=== PATIENT | female | born 1940 | race Caucasian/White ===

== ENCOUNTER 2018-02-16 13:21 | Emergency (ER) | payer MEDICARE, BC ==
[2018-02-16 13:36] VITALS: BP 151/96
[2018-02-16] MEDS ORDERED: Sodium Chloride 0.9% 10 ML Syringe FLUSH PRN (13:43)
--- NOTE | 2018-02-16 14:45 | EDM.PDOC ---
ED HPI GENERAL MEDICAL PROBLEM - General Chief Complaint: Cardiovascular Problem Stated Complaint: RAPID HEART RATE AND LOW BLOOD PRESSURE Time Seen by Provider: 02/16/18 13:29 Source of Information: Reports: Patient History Limitations: Reports: No Limitations - History of Present Illness INITIAL COMMENTS - FREE TEXT/NARRATIVE: 77 y/o F with hx HTN presents with swelling from clinic. She states she had a flu like illness a couple of months ago and now has had worsening renal function. She has seen a proof clerk, states they were thinking the decline may be medication related and her lisinopril was decreased. Was briefly on diuretics per PCP but these were discontinued. She has had worsening lower extremity swelling. She states the swelling is as high as her abdomen. She feels mildly SOB with exertion. Denies CP/cough. No vomiting/diarrhea. No dysuria, but makes very little urine. Denies fever or recent illness. Saw today who noted that she had low blood pressure, fast heart rate, and worsening edema and sent her here for further eval. 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: Other (see below) Lower Abdomen Pain Score (Numeric/FACES): 0 - Related Data Allergies Allergy/AdvReac Type Severity Reaction Status Date / Time erythromycin base Allergy Hives Verified 02/16/18 14:14 nitrofurantoin Allergy Hives Verified 02/16/18 14:14 [From Macrobid] Sulfa (Sulfonamide Allergy Hives Verified 02/16/18 14:14 Antibiotics) IVP dye Allergy Anaphylactic Uncoded 10/25/16 22:42 Shock Home Meds: Home Meds Cholecalciferol (Vitamin D3) [Vitamin D3] 1,000 unit PO DAILY 10/25/16 [History] Cinnamon Bark [Cinnamon] 500 mg PO DAILY 10/25/16 [History] Ferrous Sulfate [Iron] 325 mg PO DAILY 10/25/16 [History] Levothyroxine 25 mcg PO ACBREAKFAST 10/25/16 [History] Lisinopril 5 mg PO DAILY 10/25/16 [History] Metoprolol Succinate [Toprol XL] 100 mg PO DAILY 10/25/16 [History] [place]-3/DHA/Epa/Fish Oil [[place] 3 500 Softgel] 1 each PO DAILY 10/25/16 [History ] Vitamin B Complex [B Complex] 1 each PO DAILY 02/21/17 [History] Past Medical History Cardiovascular History: Reports: Hypertension Genitourinary History: Reports: Renal Disease Hematologic History: Reports: Other (See Below) - Infectious Disease History Infectious Disease History: Reports: Chicken Pox, Diphtheria, Measles, Mumps Other Infectious Disease History: age 7 - Past Surgical History Respiratory Surgical History: Reports: Tracheostomy GI Surgical History: Reports: Appendectomy, Cholecystectomy Female Surgical History: Reports: Hysterectomy, Salpingo-Oophorectomy, Tubal Ligation Social & Family History - Tobacco Use Smoking Status *Q: Never Smoker - Caffeine Use Caffeine Use: Reports: Coffee - Recreational Drug Use Recreational Drug Use: No - Living Situation & Occupation Occupation: Retired ED ROS GENERAL - Review of Systems Review Of Systems: See Below Constitutional: Reports: Weakness, Fatigue. Denies: Fever HEENT: Reports: No Symptoms Respiratory: Reports: Shortness of Breath Cardiovascular: Denies: Chest Pain Endocrine: Reports: Fatigue GI/Abdominal: Reports: Nausea. Denies: Abdominal Pain, Vomiting : Reports: No Symptoms Musculoskeletal: Reports: No Symptoms Skin: Reports: No Symptoms Neurological: Reports: No Symptoms Psychiatric: Reports: No Symptoms Hematologic/Lymphatic: Reports: No Symptoms Immunologic: Reports: No Symptoms ED EXAM, GENERAL - Physical Exam Exam: See Below Exam Limited By: No Limitations General Appearance: Alert, WD/WN, No Apparent Distress Eye Exam: Bilateral Eye: EOMI, PERRL Ears: Normal External Exam Nose: Normal Inspection Throat/Mouth: Normal Inspection, Normal Oropharynx, Normal Voice, No Airway Compromise Head: Atraumatic, Normocephalic Neck: Normal Inspection, Supple, Non-Tender, Full Range of Motion Respiratory/Chest: No Respiratory Distress, Lungs Clear, Normal Breath Sounds, Chest Non-Tender Cardiovascular: Normal Peripheral Pulses, Tachycardia, Other (3+ bilat LE edema) GI/Abdominal: Soft, Non-Tender, No Distention. No: Rebound Back Exam: Normal Inspection Extremities: Pedal Edema (3+ bilat LE, extends to the abdomen,no erythema/TTP) Neurological: Alert, Oriented, Normal Cognition, No Motor/Sensory Deficits Psychiatric: Normal Affect, Normal Mood Skin Exam: Warm, Dry, Intact, Normal Color, No Rash Course - Vital Signs Last Recorded V/S: Last Vital Signs Temp 36.2 C 02/16/18 13:33 Pulse 125 H 02/16/18 13:33 Resp 28 H 02/16/18 13:33 BP 151/96 H 02/16/18 13:33 Pulse Ox 93 L 02/16/18 13:33 - Orders/Labs/Meds Orders: Active Orders 24 hr Category Date Time Status EKG 12 Lead [EKG Documentation Completion] [RC] STAT Care 02/16/18 13:42 Active Peripheral IV Care [RC] . DIRECTED Care 02/16/18 13:43 Active Peripheral IV Care [RC] . DIRECTED Care 02/16/18 13:43 Active Chest 1V Frontal [CR] Stat Exams 02/16/18 13:42 Taken UA W/MICROSCOPIC [URIN] Stat Lab 02/16/18 13:42 Ordered Peripheral IV Insertion Adult [OM.PC] Routine Oth 02/16/18 13:43 Ordered Labs: Laboratory Tests 02/16/18 02/16/18 02/16/18 Range/Units 13:35 13:35 13:35 WBC 9.50 (3.98-10.04) K/mm3 RBC 4.00 (3.98-5.22) M/mm3 Hgb 10.7 L (11.2-15.7) gm/L Hct 33.5 L (34.1-44.9) % MCV 83.8 (79.4-94.8) fl MCH 26.8 (25.6-32.2) pg MCHC 31.9 L (32.2-35.5) g/dl RDW Std Deviation 48.1 H (36.4-46.3) fL Plt Count 374 H (182-369) K/mm3 MPV 10.3 (9.4-12.3) fl Neut % (Auto) 77.4 H (34.0-71.1) % Lymph % (Auto) 11.1 L (19.3-51.7) % Story % (Auto) 8.4 (4.7-12.5) % Eos % (Auto) 2.2 (0.7-5.8) Baso % (Auto) 0.5 (0.1-1.2) % Neut # (Auto) 7.35 H (1.56-6.13) K/mm3 Lymph # (Auto) 1.05 L (1.18-3.74) K/mm3 Story # (Auto) 0.80 H (0.24-0.36) K/mm3 Eos # (Auto) 0.21 (0.04-0.36) K/mm3 Baso # (Auto) 0.05 (0.01-0.08) K/mm3 PT 11.0 (9.5-12.1) SECONDS INR 1.01 Sodium 136 (136-145) mEq/L Potassium 4.5 (3.5-5.1) mEq/L Chloride 103 (98-107) mEq/L Carbon Dioxide 19 L (21-32) mEq/L Anion Gap 18.5 H (5-15) BUN 55 H (7-18) mg/dL Creatinine 2.8 H (0.55-1.02) mg/dL Est Cr Clr Drug Dosing 14.99 mL/min Estimated GFR (MDRD) 16 (>60) mL/min BUN/Creatinine Ratio 19.6 H (14-18) Glucose 132 H (83-115) mg/dL Lactic Acid (0.4-2.0) mmol/L Calcium 9.0 (8.5-10.1) mg/dL Magnesium 2.0 (1.8-2.4) mg/dl Total Bilirubin 0.4 (0.2-1.0) mg/dL AST 20 (15-37) U/L ALT 14 (14-59) U/L Alkaline Phosphatase 71 (46-116) U/L Troponin I < 0.017 (0.00-0.056) ng/mL NT-Pro-B Natriuret Pep (0-450) pg/mL Total Protein 7.5 (6.4-8.2) g/dl Albumin 2.8 L (3.4-5.0) g/dl Globulin 4.7 gm/dL Albumin/Globulin Ratio 0.6 L (1-2) TSH 3rd Generation (0.358-3.74) uIU/mL 02/16/18 02/16/18 02/16/18 Range/Units 13:35 13:35 13:55 WBC (3.98-10.04) K/mm3 RBC (3.98-5.22) M/mm3 Hgb (11.2-15.7) gm/L Hct (34.1-44.9) % MCV (79.4-94.8) fl MCH (25.6-32.2) pg MCHC (32.2-35.5) g/dl RDW Std Deviation (36.4-46.3) fL Plt Count (182-369) K/mm3 MPV (9.4-12.3) fl Neut % (Auto) (34.0-71.1) % Lymph % (Auto) (19.3-51.7) % Story % (Auto) (4.7-12.5) % Eos % (Auto) (0.7-5.8) Baso % (Auto) (0.1-1.2) % Neut # (Auto) (1.56-6.13) K/mm3 Lymph # (Auto) (1.18-3.74) K/mm3 Story # (Auto) (0.24-0.36) K/mm3 Eos # (Auto) (0.04-0.36) K/mm3 Baso # (Auto) (0.01-0.08) K/mm3 PT (9.5-12.1) SECONDS INR Sodium (136-145) mEq/L Potassium (3.5-5.1) mEq/L Chloride (98-107) mEq/L Carbon Dioxide (21-32) mEq/L Anion Gap (5-15) BUN (7-18) mg/dL Creatinine (0.55-1.02) mg/dL Est Cr Clr Drug Dosing mL/min Estimated GFR (MDRD) (>60) mL/min BUN/Creatinine Ratio (14-18) Glucose (83-115) mg/dL Lactic Acid 1.6 (0.4-2.0) mmol/L Calcium (8.5-10.1) mg/dL Magnesium (1.8-2.4) mg/dl Total Bilirubin (0.2-1.0) mg/dL AST (15-37) U/L ALT (14-59) U/L Alkaline Phosphatase (46-116) U/L Troponin I (0.00-0.056) ng/mL NT-Pro-B Natriuret Pep 527 H (0-450) pg/mL Total Protein (6.4-8.2) g/dl Albumin (3.4-5.0) g/dl Globulin gm/dL Albumin/Globulin Ratio (1-2) TSH 3rd Generation 5.058 H (0.358-3.74) uIU/mL Meds: Medications Discontinued Medications Generic Name Dose Route Start Last Admin Trade Name Henrique PRN Reason Stop Dose Admin Sodium Chloride 10 ml 02/16/18 13:43 02/16/18 14:08 Saline Flush FLUSH 10 ml ASDIRECTED PRN Administration Keep Vein Open - Re-Assessments/Exams Free Text/Narrative Re-Assessment/Exam: 02/16/18 17:43 Patient with markedly reduced urinary output, per Dr. Nazario her 24 hr urine collection only had 160 cc of urine in it. She also has marked peripheral edema. She doesn't have much pulmonary edema and is no respiratory distress. Electrolytes normal, K+ 4.5. Creatinine elevated at 2.8. She is afebrile. Mildly tachycardic in 110's. BP here is normal, though was reportedly low at clinic today. She looks well. Discussed with Dr. Avila at [facility] who accepts her for transfer given need for urgent renal consult and possible initiation of HD given all of the above. Patient strongly prefers to go by private vehicle. She is mildly tachycardic but has had normal BP throughout her stay. She is actually reasonably well appearing. Offered ambulance transport for monitoring en route (she doesn't require IV meds or O2 at this time) but she declined. Understands the risk of decline en route. Her daughter will drive. 02/16/18 17:45 Departure - Departure Time of Disposition: 15:11 Disposition: DC/Tfer to [facility] 02 Reason for Transfer *Q: Other (needs renal consult and possible HD) Clinical Impression: Tachycardia Acute renal failure Qualifiers: Acute renal failure type: unspecified Qualified Code(s): N17.9 - Acute kidney failure, unspecified Referrals: Cristian Nazario MD [Primary Care Provider] - Forms: ED Department Discharge Additional Instructions: 1. Go directly to [facility] in [place] to be admitted. - My Orders Last 24 Hours: My Active Orders 02/16/18 13:42 EKG 12 Lead [EKG Documentation Completion] [RC] STAT Chest 1V Frontal [CR] Stat UA W/MICROSCOPIC [URIN] Stat 02/16/18 13:43 Peripheral IV Care [RC] . DIRECTED Peripheral IV Care [RC] . DIRECTED Peripheral IV Insertion Adult [OM.PC] Routine - Assessment/Plan Last 24 Hours: My Active Orders 02/16/18 13:42 EKG 12 Lead [EKG Documentation Completion] [RC] STAT Chest 1V Frontal [CR] Stat UA W/MICROSCOPIC [URIN] Stat 02/16/18 13:43 Peripheral IV Care [RC] . DIRECTED Peripheral IV Care [RC] . DIRECTED Peripheral IV Insertion Adult [OM.PC] Routine
--- NOTE | 2018-02-19 07:07 | CR ---
Chest: Portable view of the chest was obtained. Comparison: No prior chest x-ray. Heart size and mediastinum are normal. Lungs are clear with no acute parenchymal change. Bony structures are grossly intact. Impression: 1. Nothing acute is seen on portable chest x-ray. Diagnostic code #1
== END 2018-02-16 15:45 ==
LOC: JD.ED 13:21
DX: N17.9 Acute kidney failure, unspecified (principal); R00.0 Tachycardia, unspecified; I10 Essential (primary) hypertension; Z88.1 Allergy status to other antibiotic agents; Z88.8 Allergy status to other drugs, medicaments and biological substances; Z88.2 Allergy status to sulfonamides; Z79.899 Other long term (current) drug therapy; Z90.49 Acquired absence of other specified parts of digestive tract; Z91.041 Radiographic dye allergy status; R06.02 Shortness of breath
CPT/HCPCS: 36415; 71045; 80053; 83605; 83735; 83880; 84443; 84484; 85025; 85610; 93005; 99285; J7050

== ENCOUNTER 2020-06-19 10:20 | Inpatient (IN) | payer MEDICARE, BC ==
[2020-06-19] MEDS ORDERED: Sodium Chloride 0.9% 1,000 ML IV ONE (11:41)
--- NOTE | 2020-06-19 15:25 | EDM.PDOC ---
ED HPI GENERAL MEDICAL PROBLEM - General Chief Complaint: Syncope Stated Complaint: DIZZY AND LIGHTHEADED Time Seen by Provider: 06/19/20 11:04 Source of Information: Reports: Patient, Provider History Limitations: Reports: No Limitations - History of Present Illness INITIAL COMMENTS - FREE TEXT/NARRATIVE: The patient presents from [facility] for generalized weakness and li ghtheadedness. She has ovarian cancer and she is on chemotherapy. She last got doxyrubicin on the 8th and did not do well with it. She gets infusions and feels better after that. She came to the clinic today feeling weak. She had a liter of fluid and zofran. She did not feel much better. Labs were done and her sodium was low at 129 and her creatinine was elevated at 3.9. Naida COATES at [facility] called [facility] in [place] and talked to Dr Avery and one call and they had no beds. She has been having trouble with her kidneys since she was diagnosed with ovarian cancer. She has no fever, chills, cough, chest pain, shortness of breath, or abdominal pain. Onset: Gradual Duration: Week(s): Severity: Moderate Improves with: Reports: None Worsens with: Reports: None Associated Symptoms: Denies: Chest Pain, Cough, Fever/Chills, Headaches, Nausea/Vomiting, Shortness of Breath - Related Data Allergies Allergy/AdvReac Type Severity Reaction Status Date / Time erythromycin base Allergy Hives Verified 06/19/20 10:51 nitrofurantoin Allergy Hives Verified 06/19/20 10:51 [From Macrobid] Sulfa (Sulfonamide Allergy Hives Verified 06/19/20 10:51 Antibiotics) IVP dye Allergy Anaphylactic Uncoded 06/19/20 10:51 Shock Home Meds: Home Meds Levothyroxine 25 mcg PO ACBREAKFAST 10/25/16 [History] Metoprolol Succinate [Toprol XL] 100 mg PO DAILY 10/25/16 [History] Acetaminophen 650 mg PO Q4H PRN 06/19/20 [History] Magnesium Oxide 400 mg PO BID 06/19/20 [History] Ondansetron [Zofran] 8 mg SL Q8H PRN 06/19/20 [History] Promethazine Gel 25 mg TOP Q6H PRN 06/19/20 [History] Past Medical History HEENT History: Reports: Impaired Vision Other HEENT History: wears eyeglasses. 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: Musculoskeletal History: Reports: Fracture Neurological History: Reports: Migraines Endocrine/Metabolic History: Reports: Hypothyroidism Hematologic History: Reports: Anemia, Blood Transfusion(s) Immunologic History: Reports: Immunosuppression Oncologic (Cancer) History: Reports: Ovarian - Infectious Disease History Infectious Disease History: Reports: Chicken Pox, Diphtheria, Measles, Mumps Other Infectious Disease History: age 7 - Past Surgical History Respiratory Surgical History: Reports: Tracheostomy GI Surgical History: Reports: Appendectomy, Cholecystectomy Female Surgical History: Reports: Hysterectomy, Salpingo-Oophorectomy, Tubal Ligation Musculoskeletal Surgical History: Reports: Other (See Below) Other Musculoskeletal Surgeries/Procedures:: L) ankle--crush injury. Social & Family History - Tobacco Use Tobacco Use Status *Q: Never Tobacco User Second Hand Smoke Exposure: No - Caffeine Use Caffeine Use: Reports: None - Recreational Drug Use Recreational Drug Use: No - Living Situation & Occupation Occupation: Retired ED ROS GENERAL - Review of Systems Review Of Systems: See Below Constitutional: Reports: Malaise, Weakness, Fatigue. Denies: Fever, Chills HEENT: Reports: No Symptoms Respiratory: Reports: No Symptoms Cardiovascular: Reports: No Symptoms Endocrine: Reports: No Symptoms GI/Abdominal: Reports: Nausea. Denies: Abdominal Pain, Vomiting : Reports: No Symptoms ED EXAM, NEURO - Physical Exam Exam: See Below Exam Limited By: No Limitations General Appearance: Alert, No Apparent Distress Ears: Normal External Exam Nose: Normal Inspection Head Exam: Atraumatic, Normocephalic Neck: Normal Inspection Respiratory/Chest: No Respiratory Distress, Lungs Clear, Normal Breath Sounds Cardiovascular: Regular Rate, Rhythm, No Edema, No Murmur GI/Abdominal: Soft, Non-Tender, No Organomegaly, No Mass Neurological: Alert, No Motor/Sensory Deficits, Oriented x 3 Course - Vital Signs Last Recorded V/S: Last Vital Signs Temp 97.3 F 06/19/20 10:40 Pulse 84 06/19/20 10:40 Resp 16 06/19/20 10:40 BP 117/77 06/19/20 10:40 Pulse Ox 99 06/19/20 10:40 - Orders/Labs/Meds Orders: Active Orders 24 hr Category Date Time Status Cardiac Monitoring [RC] . DIRECTED Care 06/19/20 12:06 Active CORONAVIRUS COVID-19 CANDELARIA [MOLEC] Stat Lab 06/19/20 14:35 Received Labs: Laboratory Tests 06/19/20 06/19/20 Range/Units 13:10 13:10 WBC 10.55 H (3.98-10.04) K/mm3 RBC 4.20 (3.98-5.22) M/mm3 Hgb 10.9 L (11.2-15.7) gm/dl Hct 33.8 L (34.1-44.9) % MCV 80.5 D (79.4-94.8) fl MCH 26.0 (25.6-32.2) pg MCHC 32.2 (32.2-35.5) g/dl RDW Std Deviation 51.7 H (36.4-46.3) fL Plt Count 546 H D (182-369) K/mm3 MPV 8.5 L (9.4-12.3) fl Neut % (Auto) 93.7 H (34.0-71.1) % Lymph % (Auto) 3.1 L (19.3-51.7) % [place] % (Auto) 2.5 L (4.7-12.5) % Eos % (Auto) 0.1 L (0.7-5.8) Baso % (Auto) 0.0 L (0.1-1.2) % Neut # (Auto) 9.89 H (1.56-6.13) K/mm3 Lymph # (Auto) 0.33 L (1.18-3.74) K/mm3 [place] # (Auto) 0.26 (0.24-0.36) K/mm3 Eos # (Auto) 0.01 L (0.04-0.36) K/mm3 Baso # (Auto) 0.00 L (0.01-0.08) K/mm3 Manual Slide Review Abnormal smear Sodium 129 L (136-145) mEq/L Potassium 4.7 (3.5-5.1) mEq/L Chloride 97 L (98-107) mEq/L Carbon Dioxide 15 L (21-32) mEq/L Anion Gap 21.7 H (5-15) BUN 75 H (7-18) mg/dL Creatinine 3.1 H (0.55-1.02) mg/dL Est Cr Clr Drug Dosing 13.67 mL/min Estimated GFR (MDRD) 15 (>60) mL/min BUN/Creatinine Ratio 24.2 H (14-18) Glucose 104 (83-115) mg/dL Calcium 8.3 L (8.5-10.1) mg/dL Magnesium 2.1 (1.8-2.4) mg/dl Total Bilirubin 0.3 (0.2-1.0) mg/dL AST 16 (15-37) U/L ALT 11 L (14-59) U/L Alkaline Phosphatase 112 (46-116) U/L Total Protein 5.4 L (6.4-8.2) g/dl Albumin 1.7 L (3.4-5.0) g/dl Globulin 3.7 gm/dL Albumin/Globulin Ratio 0.5 L (1-2) Meds: Medications Discontinued Medications Generic Name Dose Route Start Last Admin Trade Name Freq PRN Reason Stop Dose Admin Sodium Chloride 1,000 mls @ 1,000 mls/hr 06/19/20 11:41 06/19/20 13:10 Normal Saline IV 06/19/20 12:40 1,000 mls/hr ONETIME ONE Administration - Re-Assessments/Exams Free Text/Narrative Re-Assessment/Exam: 06/19/20 15:26 I ordered another liter of NS. Her WBC here was 10.55. Her platelets were elevated at 546. Her Na is low at 129. Her anion gap is elevated at 21.7. Her creatinine has improved to 3.1. I talked to [facility] and they were still full. I talked to our hospitalist Dr Hills and he agreed to the adm ission. Departure - Departure Time of Disposition: 15:30 Disposition: Home, Self-Care 01 Condition: Serious Clinical Impression: Generalized weakness, Hyponatremia, Renal insufficiency Ovarian cancer Qualifiers: Laterality: unspecified laterality Qualified Code(s): C56.9 - Malignant neoplasm of unspecified ovary - Discharge Information Referrals: Cristian Nazario MD [Primary Care Provider] - Sepsis Event Note (ED) - Evaluation Sepsis Screening Result: No Definite Risk - Focused Exam Vital Signs: Vital Signs Temp Pulse Resp BP Pulse Ox 06/19/20 10:40 97.3 F 84 16 117/77 99 - My Orders Last 24 Hours: My Active Orders 06/19/20 12:06 Cardiac Monitoring [RC] . DIRECTED 06/19/20 14:35 CORONAVIRUS COVID-19 CANDELARIA [MOLEC] Stat - Assessment/Plan Last 24 Hours: My Active Orders 06/19/20 12:06 Cardiac Monitoring [RC] . DIRECTED 06/19/20 14:35 CORONAVIRUS COVID-19 CANDELARIA [MOLEC] Stat
--- NOTE | 2020-06-19 16:37 | PCM.HP.2 ---
H&P History of Present Illness - General Date of Service: 06/19/20 Admit Problem/Dx: Generalized weakness - History of Present Illness Initial Comments - Free Text/Narative: 79-year-old female with history of ovarian cancer, last chemotherapy on June 11, 2020. Her next chemotherapy is scheduled in 3 weeks and next week she has a paracentesis is scheduled for recurrent ascites. Chemotherapy includes doxorubicin and she apparently gets very weak after the infusions. Patient has been increasingly weak and she presented to the oncology clinic today and after receiving a liter of fluid and Zofran she still did not fill any better. She is unable to get around at home. Labs done at the clinic showed sodium of 129 and a creatinine of 3.9. When repeated here sodium was still 129, but creatinine came down to 3.1 with estimated GFR of 15 and BUN of 75. Her normal creatinine is in the upper twos according to the ED provider. Patient complains of a poor appetite but no significant abdominal pain. She did complain of some lower abdominal fullness especially when her fluid increases in her abdomen. She denies any fever or chills. She denies any shortness of breath or chest pain. No dysuria or hematuria. No vomiting. She does complain of some mouth discomfort that has been going on for a few weeks. She does have a mouthwash uses at home. She also complains of occasional ear pain that causes dizziness. - Related Data Allergies/Adverse Reactions: Allergies Allergy/AdvReac Type Severity Reaction Status Date / Time erythromycin base Allergy Hives Verified 06/19/20 18:12 nitrofurantoin Allergy Hives Verified 06/19/20 18:12 [From Macrobid] Sulfa (Sulfonamide Allergy Hives Verified 06/19/20 18:12 Antibiotics) IVP dye Allergy Anaphylactic Uncoded 06/19/20 18:12 Shock Home Medications: Home Meds Levothyroxine 25 mcg PO ACBREAKFAST 10/25/16 [History] Metoprolol Succinate [Toprol XL] 100 mg PO DAILY 10/25/16 [History] Acetaminophen 650 mg PO Q4H PRN 06/19/20 [History] Magnesium Oxide 400 mg PO BID 06/19/20 [History] Ondansetron [Zofran] 8 mg SL Q8H PRN 06/19/20 [History] Promethazine Gel 25 mg TOP Q6H PRN 06/19/20 [History] Past Medical History HEENT History: Reports: Impaired Vision Other HEENT History: wears eyeglasses. Cardiovascular History: Reports: Hypertension Respiratory History: Reports: Pneumonia, Recurrent Genitourinary History: Reports: Renal Disease, UTI, Recurrent MANAGER DELI History: Reports: Musculoskeletal History: Reports: Fracture Neurological History: Reports: Migraines Endocrine/Metabolic History: Reports: Hypothyroidism Hematologic History: Reports: Anemia, Blood Transfusion(s) Immunologic History: Reports: Immunosuppression Oncologic (Cancer) History: Reports: Ovarian - Infectious Disease History Infectious Disease History: Reports: Chicken Pox, Diphtheria, Measles, Mumps Other Infectious Disease History: age 7 - Past Surgical History Respiratory Surgical History: Reports: Tracheostomy GI Surgical History: Reports: Appendectomy, Cholecystectomy Female Surgical History: Reports: Hysterectomy, Salpingo-Oophorectomy, Tubal Ligation Musculoskeletal Surgical History: Reports: Other (See Below) Other Musculoskeletal Surgeries/Procedures:: L) ankle--crush injury. Social & Family History - Tobacco Use Tobacco Use Status *Q: Never Tobacco User Second Hand Smoke Exposure: No - Caffeine Use Caffeine Use: Reports: None - Recreational Drug Use Recreational Drug Use: No - Living Situation & Occupation Occupation: Retired H&P Review of Systems - Review of Systems: Review Of Systems: Comprehensive ROS is negative, except as noted in HPI. Exam - Exam Exam: See Below - Vital Signs Vital Signs: Last Vital Signs Temp 97.3 F 06/19/20 10:40 Pulse 84 06/19/20 10:40 Resp 16 06/19/20 10:40 BP 117/77 06/19/20 10:40 Pulse Ox 99 06/19/20 10:40 Weight: 74.389 kg - Exam Quality Assessment: No: Supplemental Oxygen General: Alert, Oriented, Other (Ill-appearing in no acute distress) HEENT: Conjunctiva Clear, EOMI, Hearing Intact (Ears are without erythema. Right tympanic membrane has a small amount of bulging, but nothing significant or severe.), Nares Patent, Posterior Pharynx Clear, Other (Oral mucosa is mildly erythematous. She does have some ulceration on her tongue.) Neck: Supple, Trachea Midline, 2 Lungs: Clear to Auscultation, Normal Respiratory Effort Cardiovascular: Regular Rate, Regular Rhythm GI/Abdominal Exam: Normal Bowel Sounds, Soft, Non-Tender, Distended Back Exam: Normal Inspection Extremities: Normal Capillary Refill, Pedal Edema (3+ pitting edema), Leg Pain (Mildly tender ankles and calf). No: Increased Warmth Skin: Warm, Dry, Intact Neurological: Cranial Nerves Intact Neuro Extensive - Mental Status: Alert, Oriented x3, Normal Mood/Affect, Normal Cognition, Memory Intact Neuro Extensive - Motor, Sensory, Reflexes: CN II-XII Intact Psychiatric: Alert, Normal Affect, Normal Mood - Patient Data Lab Results Last 24 hrs: Laboratory Results - last 24 hr 06/19/20 06/19/20 06/19/20 Range/Units 13:10 13:10 14:35 WBC 10.55 H (3.98-10.04) K/mm3 RBC 4.20 (3.98-5.22) M/mm3 Hgb 10.9 L (11.2-15.7) gm/dl Hct 33.8 L (34.1-44.9) % MCV 80.5 D (79.4-94.8) fl MCH 26.0 (25.6-32.2) pg MCHC 32.2 (32.2-35.5) g/dl RDW Std Deviation 51.7 H (36.4-46.3) fL Plt Count 546 H D (182-369) K/mm3 MPV 8.5 L (9.4-12.3) fl Neut % (Auto) 93.7 H (34.0-71.1) % Lymph % (Auto) 3.1 L (19.3-51.7) % Cache % (Auto) 2.5 L (4.7-12.5) % Eos % (Auto) 0.1 L (0.7-5.8) Baso % (Auto) 0.0 L (0.1-1.2) % Neut # (Auto) 9.89 H (1.56-6.13) K/mm3 Lymph # (Auto) 0.33 L (1.18-3.74) K/mm3 [place] # (Auto) 0.26 (0.24-0.36) K/mm3 Eos # (Auto) 0.01 L (0.04-0.36) K/mm3 Baso # (Auto) 0.00 L (0.01-0.08) K/mm3 Manual Slide Review Abnormal smear Sodium 129 L (136-145) mEq/L Potassium 4.7 (3.5-5.1) mEq/L Chloride 97 L (98-107) mEq/L Carbon Dioxide 15 L (21-32) mEq/L Anion Gap 21.7 H (5-15) BUN 75 H (7-18) mg/dL Creatinine 3.1 H (0.55-1.02) mg/dL Est Cr Clr Drug Dosing 13.67 mL/min Estimated GFR (MDRD) 15 (>60) mL/min BUN/Creatinine Ratio 24.2 H (14-18) Glucose 104 (83-115) mg/dL Calcium 8.3 L (8.5-10.1) mg/dL Magnesium 2.1 (1.8-2.4) mg/dl Total Bilirubin 0.3 (0.2-1.0) mg/dL AST 16 (15-37) U/L ALT 11 L (14-59) U/L Alkaline Phosphatase 112 (46-116) U/L Total Protein 5.4 L (6.4-8.2) g/dl Albumin 1.7 L (3.4-5.0) g/dl Globulin 3.7 gm/dL Albumin/Globulin Ratio 0.5 L (1-2) SARS-CoV-2 RNA ([place]) Negative (NEGATIVE) Result Diagrams: 06/19/20 13:10 06/19/20 13:10 Sepsis Event Note - Evaluation Sepsis Screening Result: No Definite Risk - Focused Exam Vital Signs: Vital Signs Temp Pulse Resp BP Pulse Ox 06/19/20 10:40 97.3 F 84 16 117/77 99 - Problem List (1) Generalized weakness SNOMED Code(s): 66986089 ICD Code: R53.1 - WEAKNESS Status: Acute Current Visit: Yes (2) Hyponatremia SNOMED Code(s): 55219676 ICD Code: E87.1 - HYPO-OSMOLALITY AND HYPONATREMIA Status: Acute Current Visit: Yes (3) Ovarian cancer SNOMED Code(s): 285796977 ICD Code: C56.9 - MALIGNANT NEOPLASM OF UNSPECIFIED OVARY Status: Acute Current Visit: Yes Qualifiers: Laterality: unspecified laterality Qualified Code(s): C56.9 - Malignant neoplasm of unspecified ovary (4) Renal insufficiency SNOMED Code(s): 199438504, 701210900 ICD Code: N28.9 - DISORDER OF KIDNEY AND URETER, UNSPECIFIED Status: Acute Current Visit: Yes (5) Acute renal failure SNOMED Code(s): 60724400 ICD Code: N17.9 - ACUTE KIDNEY FAILURE, UNSPECIFIED Status: Acute Current Visit: No Qualifiers: Acute renal failure type: unspecified Qualified Code(s): N17.9 - Acute kidney failure, unspecified Problem List Initiated/Reviewed/Updated: Yes Orders Last 24hrs: Active Orders 24 hr Category Date Time Status Cardiac Monitoring [RC] . DIRECTED Care 06/19/20 12:06 Active Assessment/Plan Comment:: 79-year-old female with ovarian cancer presents to the emergency department after being seen at the clinic with increasing weakness following treatment with doxorubicin. Hypovolemic hyponatremia Acute on chronic renal insufficiency Elevated anion gap likely secondary to hypovolemia Hyponatremia secondary to protein calorie malnutrition Anemia Leukocytosis likely stress response Mouth ulcers, possible thrush Otalgia * Given 2 L normal saline, 1 in the clinic and 1 in the emergency department * Progressive weakness of the last 7 days * Unable to care for herself or have level of care for her * Repeat labs showed continued sodium of 129 and a creatinine down to 3.1, estimated GFR 15 * Albumin low at 1.7, corrected calcium 10.1. AST, ALT, alkaline phosphatase, bilirubin normal * WBC 10.55, hemoglobin 10.9 History of hypertension and hypothyroidism Plan * Admit to medical floor for rehydration * Follow renal function closely. * Order physical therapy and Occupational Therapy consults. * Continue home meds * Check TSH in the morning. * Monitor vital signs every 4 hours. * Dietary consult * Nystatin swish and spit 4 times daily * Analgesia for ear pain. Nothing significant found on exam. * VTE prophylaxis with Lovenox adjusted for renal function * Adjust medications based on renal function. * CODE STATUS: Full code * Disposition admit to floor with likely length of stay 2 to 3 days. - Mortality Measure Prognosis:: Good
[2020-06-19] MEDS ORDERED: Acetaminophen 325 MG Tab PO PRN (17:05)
[2020-06-19] MEDS ORDERED: Temazepam 7.5 MG Cap PO PRN (17:05)
[2020-06-19] MEDS ORDERED: Magnesium Hydroxide 400 MG/5 ML Susp 30 ML Cup PO PRN (17:05)
[2020-06-19] MEDS ORDERED: Polyethylene Glycol 3350 Powder 17 GM Packet PO PRN (17:05)
[2020-06-19] MEDS ORDERED: oxyCODONE 5 MG Tab PO PRN (17:05)
[2020-06-19] MEDS ORDERED: PROMETHAZINE 25 MG TOP PRN (17:10)
[2020-06-19] MEDS: Dextrose 5%-0.9% NaCl 1,000 ML IV SCH (18:09)
[2020-06-19] MEDS: Ondansetron 4 MG/2 ML SDV IV PRN (21:03)
[2020-06-19] MEDS: Nystatin Susp 100,000 Unit/ML 5 ML Oral Syringe PO SCH (21:04)
[2020-06-20] MEDS: Dextrose 5%-0.9% NaCl 1,000 ML IV SCH ×2 (04:03→14:03)
[2020-06-20] MEDS: Levothyroxine 25 MCG Tab PO SCH (05:48)
[2020-06-20] MEDS: Enoxaparin 30 MG/0.3 ML Syringe SUBCUT SCH (08:51)
[2020-06-20] MEDS: Nystatin Susp 100,000 Unit/ML 5 ML Oral Syringe PO SCH ×4 (08:53→20:30)
[2020-06-20] MEDS: Metoprolol Succinate 50 MG Tab.ER PO SCH (08:59)
--- NOTE | 2020-06-20 09:09 | PCM.PN ---
- General Info Date of Service: 06/20/20 Admission Dx/Problem (Free Text): Generalized weakness Subjective Update: The patient is a 79-year-old lady who was admitted yesterday secondary to weakness. She has a history of ovarian cancer and was last afforded chemotherapy on June 11, 2020. The patient today says that she does have some lower abdominal fullness and pain and she is concerned about the fluid in her abdomen. The patient says that she has been having pain in her mouth and sores. Functional Status: Reports: Pain Controlled. Denies: Tolerating Diet (Poor oral intake) - Review of Systems General: Reports: Weakness, Fatigue HEENT: Reports: Other (Mouth pain) Pulmonary: Reports: No Symptoms Cardiovascular: Reports: Edema (Lower extremity) Gastrointestinal: Reports: Other (Abdominal fullness, bloating) Genitourinary: Reports: No Symptoms Musculoskeletal: Reports: No Symptoms Skin: Reports: No Symptoms Neurological: Reports: No Symptoms Psychiatric: Reports: No Symptoms - Patient Data Vitals - Most Recent: Last Vital Signs Temp 36.2 C 06/20/20 04:07 Pulse 103 H 06/20/20 08:59 Resp 18 06/20/20 04:07 BP 107/72 06/20/20 08:59 Pulse Ox 96 06/20/20 04:07 Weight - Most Recent: 77.973 kg I&O - Last 24 Hours: Intake & Output 06/19/20 06/20/20 06/20/20 22:59 06:59 14:59 Intake Total 360 1088 Balance 360 1088 Lab Results Last 24 Hours: Laboratory Results - last 24 hr 06/19/20 06/19/20 06/19/20 Range/Units 13:10 13:10 14:35 WBC 10.55 H (3.98-10.04) K/mm3 RBC 4.20 (3.98-5.22) M/mm3 Hgb 10.9 L (11.2-15.7) gm/dl Hct 33.8 L (34.1-44.9) % MCV 80.5 D (79.4-94.8) fl MCH 26.0 (25.6-32.2) pg MCHC 32.2 (32.2-35.5) g/dl RDW Std Deviation 51.7 H (36.4-46.3) fL Plt Count 546 H D (182-369) K/mm3 MPV 8.5 L (9.4-12.3) fl Neut % (Auto) 93.7 H (34.0-71.1) % Lymph % (Auto) 3.1 L (19.3-51.7) % Garza % (Auto) 2.5 L (4.7-12.5) % Eos % (Auto) 0.1 L (0.7-5.8) Baso % (Auto) 0.0 L (0.1-1.2) % Neut # (Auto) 9.89 H (1.56-6.13) K/mm3 Lymph # (Auto) 0.33 L (1.18-3.74) K/mm3 Garza # (Auto) 0.26 (0.24-0.36) K/mm3 Eos # (Auto) 0.01 L (0.04-0.36) K/mm3 Baso # (Auto) 0.00 L (0.01-0.08) K/mm3 Manual Slide Review Abnormal smear Sodium 129 L (136-145) mEq/L Potassium 4.7 (3.5-5.1) mEq/L Chloride 97 L (98-107) mEq/L Carbon Dioxide 15 L (21-32) mEq/L Anion Gap 21.7 H (5-15) BUN 75 H (7-18) mg/dL Creatinine 3.1 H (0.55-1.02) mg/dL Est Cr Clr Drug Dosing 13.67 mL/min Estimated GFR (MDRD) 15 (>60) mL/min BUN/Creatinine Ratio 24.2 H (14-18) Glucose 104 (83-115) mg/dL Calcium 8.3 L (8.5-10.1) mg/dL Phosphorus (2.6-4.7) mg/dL Magnesium 2.1 (1.8-2.4) mg/dl Total Bilirubin 0.3 (0.2-1.0) mg/dL AST 16 (15-37) U/L ALT 11 L (14-59) U/L Alkaline Phosphatase 112 (46-116) U/L C-Reactive Protein (<1.0) mg/dL Total Protein 5.4 L (6.4-8.2) g/dl Albumin 1.7 L (3.4-5.0) g/dl Globulin 3.7 gm/dL Albumin/Globulin Ratio 0.5 L (1-2) TSH 3rd Generation (0.358-3.74) uIU/mL SARS-CoV-2 RNA ([place]) Negative (NEGATIVE) 06/20/20 06/20/20 Range/Units 06:20 06:20 WBC 9.28 (3.98-10.04) K/mm3 RBC 4.28 (3.98-5.22) M/mm3 Hgb 11.0 L (11.2-15.7) gm/dl Hct 34.4 (34.1-44.9) % MCV 80.4 (79.4-94.8) fl MCH 25.7 (25.6-32.2) pg MCHC 32.0 L (32.2-35.5) g/dl RDW Std Deviation 52.4 H (36.4-46.3) fL Plt Count 528 H (182-369) K/mm3 MPV 8.5 L (9.4-12.3) fl Neut % (Auto) 90.9 H (34.0-71.1) % Lymph % (Auto) 4.6 L (19.3-51.7) % Garza % (Auto) 2.9 L (4.7-12.5) % Eos % (Auto) 1.2 (0.7-5.8) Baso % (Auto) 0.1 (0.1-1.2) % Neut # (Auto) 8.43 H (1.56-6.13) K/mm3 Lymph # (Auto) 0.43 L (1.18-3.74) K/mm3 Garza # (Auto) 0.27 (0.24-0.36) K/mm3 Eos # (Auto) 0.11 (0.04-0.36) K/mm3 Baso # (Auto) 0.01 (0.01-0.08) K/mm3 Manual Slide Review Abnormal smear Sodium 131 L (136-145) mEq/L Potassium 3.9 (3.5-5.1) mEq/L Chloride 101 (98-107) mEq/L Carbon Dioxide 15 L (21-32) mEq/L Anion Gap 18.9 H (5-15) BUN 68 H (7-18) mg/dL Creatinine 3.0 H (0.55-1.02) mg/dL Est Cr Clr Drug Dosing 14.13 mL/min Estimated GFR (MDRD) 15 (>60) mL/min BUN/Creatinine Ratio 22.7 H (14-18) Glucose 146 H (83-115) mg/dL Calcium 7.7 L (8.5-10.1) mg/dL Phosphorus 4.4 (2.6-4.7) mg/dL Magnesium 1.8 (1.8-2.4) mg/dl Total Bilirubin 0.2 (0.2-1.0) mg/dL AST 16 (15-37) U/L ALT 10 L (14-59) U/L Alkaline Phosphatase 107 (46-116) U/L C-Reactive Protein 12.1 H* (<1.0) mg/dL Total Protein 5.1 L (6.4-8.2) g/dl Albumin 1.5 L (3.4-5.0) g/dl Globulin 3.6 gm/dL Albumin/Globulin Ratio 0.4 L (1-2) TSH 3rd Generation 5.898 H (0.358-3.74) uIU/mL SARS-CoV-2 RNA ([place]IA) (NEGATIVE) Med Orders - Current: Current Medications Acetaminophen (Tylenol) 650 mg PO Q4H PRN PRN Reason: Pain (Mild 1-3)/fever Enoxaparin Sodium (Lovenox) 30 mg SUBCUT DAILY [facility] Last Admin: 06/20/20 08:51 Dose: 30 mg Documented by: Hydromorphone HCl (Dilaudid) 0.25 mg IVPUSH Q2H PRN PRN Reason: Pain (severe 7-10) Dextrose/Sodium Chloride (Dextrose 5%-Normal Saline) 1,000 mls @ 100 mls/hr IV ASDIRECTED [facility] Last Admin: 06/20/20 04:03 Dose: 100 mls/hr Documented by: Levothyroxine Sodium (Levothyroxine) 25 mcg PO ACBREAKFAST [facility] Last Admin: 06/20/20 05:48 Dose: 25 mcg Documented by: Magnesium Hydroxide (Milk Of Magnesia) 30 ml PO Q12H PRN PRN Reason: Constipation Metoprolol Succinate (Toprol Xl) 100 mg PO DAILY [facility] Last Admin: 06/20/20 08:59 Dose: Not Given Documented by: Nystatin (Nystatin Oral Syringe) 500,000 unit PO QID [facility] Last Admin: 06/20/20 08:53 Dose: 500,000 unit Documented by: Ondansetron HCl (Zofran) 4 mg IV Q4H PRN PRN Reason: Nausea/Vomiting Last Admin: 06/19/20 21:03 Dose: 4 mg Documented by: Oxycodone HCl (Oxycodone) 5 mg PO Q4H PRN PRN Reason: Pain (moderate 4-6) Polyethylene Glycol (Miralax) 17 gm PO DAILY PRN PRN Reason: Constipation Senna/Docusate Sodium (Senna Plus) 1 tab PO BID PRN PRN Reason: Constipation Temazepam (Restoril) 7.5 mg PO BEDTIME PRN PRN Reason: Sleep Discontinued Medications Sodium Chloride (Normal Saline) 1,000 mls @ 1,000 mls/hr IV ONETIME ONE Stop: 06/19/20 12:40 Last Admin: 06/19/20 13:10 Dose: 1,000 mls/hr Documented by: Non-Formulary Medication (Promethazine Gel) 25 mg TOP Q6H PRN PRN Reason: Nausea - Exam Quality Assessment: No: Supplemental Oxygen General: Alert, Oriented, Cooperative HEENT: Pupils Equal, Pupils Reactive. No: Mucous Membr. Moist/[place] (Stomatitis, superficial ulcerations) Neck: Supple, Trachea Midline Lungs: Clear to Auscultation, Normal Respiratory Effort Cardiovascular: Regular Rate, Regular Rhythm GI/Abdominal Exam: Normal Bowel Sounds, Soft, Non-Tender, Distended, Other ( Ascites) (Female) Exam: Deferred Back Exam: Normal Inspection, Full Range of Motion Extremities: Pedal Edema (+2 pitting edema) Skin: Warm, Dry, Intact Neurological: No New Focal Deficit Psy/Mental Status: Alert, Normal Affect Sepsis Event Note - Evaluation Sepsis Screening Result: No Definite Risk - Focused Exam Vital Signs: Vital Signs Temp Pulse Resp BP Pulse Ox 06/20/20 08:59 103 H 107/72 06/20/20 04:07 36.2 C 91 18 111/93 H 96 06/19/20 23:51 36.3 C 80 16 107/60 97 - Problem List & Annotations (1) Ascites, malignant SNOMED Code(s): 273099246 Code(s): R18.0 - MALIGNANT ASCITES Status: Chronic Priority: High Current Visit: Yes (2) Vertigo SNOMED Code(s): 223363436 Code(s): R42 - DIZZINESS AND GIDDINESS Status: Acute Priority: High Current Visit: Yes (3) Generalized weakness SNOMED Code(s): 82101537 Code(s): R53.1 - WEAKNESS Status: Chronic Priority: Medium Current Visit: Yes (4) Ovarian cancer SNOMED Code(s): 392262198 Code(s): C56.9 - MALIGNANT NEOPLASM OF UNSPECIFIED OVARY Status: Chronic Priority: Medium Current Visit: Yes Qualifiers: Laterality: unspecified laterality Qualified Code(s): C56.9 - Malignant neoplasm of unspecified ovary (5) Renal insufficiency SNOMED Code(s): 602171216, 870666283 Code(s): N28.9 - DISORDER OF KIDNEY AND URETER, UNSPECIFIED Status: Chronic Priority: High Current Visit: Yes Annotation/Comment:: Stage IV renal failure, EGFR 15 mL/min - Problem List Review Problem List Initiated/Reviewed/Updated: Yes - Plan Plan:: 79-year-old female with ovarian cancer presents to the emergency department af ter being seen at the clinic with increasing weakness following treatment with doxorubicin. Hypovolemic hyponatremia Acute on chronic renal insufficiency Elevated anion gap likely secondary to hypovolemia Hyponatremia secondary to protein calorie malnutrition Anemia Leukocytosis likely stress response Mouth ulcers, possible thrush Otalgia * Given 2 L normal saline, 1 in the clinic and 1 in the emergency department * Progressive weakness of the last 7 days * Unable to care for herself or have level of care for her * Repeat labs showed continued sodium of 129 and a creatinine down to 3.1, estimated GFR 15 * Albumin low at 1.7, corrected calcium 10.1. AST, ALT, alkaline phosphatase, bilirubin normal * WBC 10.55, hemoglobin 10.9 History of hypertension and hypothyroidism Plan * Admit to medical floor for rehydration * Follow renal function closely. * Order physical therapy and Occupational Therapy consults. * Continue home meds * Check TSH in the morning. * Monitor vital signs every 4 hours. * Dietary consult * Nystatin swish and spit 4 times daily * Analgesia for ear pain. Nothing significant found on exam. * VTE prophylaxis with Lovenox adjusted for renal function * Adjust medications based on renal function. * CODE STATUS: Full code * Disposition admit to floor with likely length of stay 2 to 3 days. * 06/20/2020 The patient is a 79-year-old lady who had been admitted predominantly for weakness. Physical therapy has been ordered. The patient will likely need to have therapeutic paracentesis as she does have ovarian cancer. The patient also has had recent chemotherapy and CBC, CMP have been ordered for her. She will continue diet as tolerated. Also I have ordered Magic mouthwash to help with her stomatitis. The patient does have pitting edema consistent with low albumin. This likely represents protein calorie malnutrition will require supplementation. Consult for dietitian has been ordered.
[2020-06-21] MEDS: Dextrose 5%-0.9% NaCl 1,000 ML IV SCH ×3 (00:51→20:38)
[2020-06-21] MEDS: Levothyroxine 25 MCG Tab PO SCH (05:48)
--- NOTE | 2020-06-21 07:28 | PCM.PN ---
- General Info Date of Service: 06/21/20 Admission Dx/Problem (Free Text): Generalized weakness Subjective Update: The patient was admitted secondary to generalized weakness. The patient has ovarian cancer and she was recently afforded chemotherapy. The patient today still has some lower abdominal fullness and she is concerned about her ascites. The patient's pain has been controlled for the most part. She has not been tolerating her diet. Functional Status: Reports: Pain Controlled. Denies: Tolerating Diet - Review of Systems General: Reports: Weakness, Fatigue HEENT: Reports: No Symptoms Pulmonary: Reports: No Symptoms Cardiovascular: Reports: Edema Gastrointestinal: Reports: Abdominal Pain, Decreased Appetite, Other (Ascites) Genitourinary: Reports: No Symptoms Musculoskeletal: Reports: No Symptoms Skin: Reports: No Symptoms Neurological: Reports: No Symptoms Psychiatric: Reports: No Symptoms - Patient Data Vitals - Most Recent: Last Vital Signs Temp 36.4 C 06/21/20 04:10 Pulse 97 06/21/20 04:10 Resp 16 06/21/20 04:10 BP 105/63 06/21/20 04:10 Pulse Ox 100 06/21/20 04:10 Weight - Most Recent: 80.377 kg I&O - Last 24 Hours: Intake & Output 06/20/20 06/21/20 06/21/20 22:59 06:59 14:59 Intake Total 2300 2614 Output Total 250 300 Balance 2050 2314 Lab Results Last 24 Hours: Laboratory Results - last 24 hr 06/20/20 06/21/20 06/21/20 Range/Units 06:20 06:15 06:15 WBC 7.14 (3.98-10.04) K/mm3 RBC 4.12 (3.98-5.22) M/mm3 Hgb 10.6 L (11.2-15.7) gm/dl Hct 33.1 L (34.1-44.9) % MCV 80.3 (79.4-94.8) fl MCH 25.7 (25.6-32.2) pg MCHC 32.0 L (32.2-35.5) g/dl RDW Std Deviation 52.2 H (36.4-46.3) fL Plt Count 481 H (182-369) K/mm3 MPV 8.7 L (9.4-12.3) fl Neut % (Auto) 90.2 H (34.0-71.1) % Lymph % (Auto) 4.8 L (19.3-51.7) % [place] % (Auto) 3.2 L (4.7-12.5) % Eos % (Auto) 1.3 (0.7-5.8) Baso % (Auto) 0.1 (0.1-1.2) % Neut # (Auto) 6.44 H (1.56-6.13) K/mm3 Lymph # (Auto) 0.34 L (1.18-3.74) K/mm3 [place] # (Auto) 0.23 L (0.24-0.36) K/mm3 Eos # (Auto) 0.09 (0.04-0.36) K/mm3 Baso # (Auto) 0.01 (0.01-0.08) K/mm3 Manual Slide Review Abnormal smear Sodium 133 L (136-145) mEq/L Potassium 3.6 (3.5-5.1) mEq/L Chloride 104 (98-107) mEq/L Carbon Dioxide 16 L (21-32) mEq/L Anion Gap 16.6 H (5-15) BUN 62 H (7-18) mg/dL Creatinine 2.5 H (0.55-1.02) mg/dL Est Cr Clr Drug Dosing 16.96 mL/min Estimated GFR (MDRD) 19 (>60) mL/min BUN/Creatinine Ratio 24.8 H (14-18) Glucose 145 H (83-115) mg/dL Calcium 7.6 L (8.5-10.1) mg/dL C-Reactive Protein 13.4 H* (<1.0) mg/dL Med Orders - Current: Current Medications Acetaminophen (Tylenol) 650 mg PO Q4H PRN PRN Reason: Pain (Mild 1-3)/fever Diphenhydr/Magaldrate/Simeth/Lidoca (First-Mouthwash Blm Susp) 30 ml PO Q4H PRN PRN Reason: Dryness Enoxaparin Sodium (Lovenox) 30 mg SUBCUT DAILY [facility] Last Admin: 06/20/20 08:51 Dose: 30 mg Documented by: Hydromorphone HCl (Dilaudid) 0.25 mg IVPUSH Q2H PRN PRN Reason: Pain (severe 7-10) Dextrose/Sodium Chloride (Dextrose 5%-Normal Saline) 1,000 mls @ 100 mls/hr IV ASDIRECTED [facility] Last Admin: 06/21/20 00:51 Dose: 100 mls/hr Documented by: Levothyroxine Sodium (Levothyroxine) 25 mcg PO ACBREAKFAST [facility] Last Admin: 06/21/20 05:48 Dose: 25 mcg Documented by: Magnesium Hydroxide (Milk Of Magnesia) 30 ml PO Q12H PRN PRN Reason: Constipation Metoprolol Succinate (Toprol Xl) 100 mg PO DAILY [facility] Last Admin: 06/20/20 08:59 Dose: Not Given Documented by: Nystatin (Nystatin Oral Syringe) 500,000 unit PO QID [facility] Last Admin: 06/20/20 20:30 Dose: 500,000 unit Documented by: Ondansetron HCl (Zofran) 4 mg IV Q4H PRN PRN Reason: Nausea/Vomiting Last Admin: 06/19/20 21:03 Dose: 4 mg Documented by: Oxycodone HCl (Oxycodone) 5 mg PO Q4H PRN PRN Reason: Pain (moderate 4-6) Polyethylene Glycol (Miralax) 17 gm PO DAILY PRN PRN Reason: Constipation Senna/Docusate Sodium (Senna Plus) 1 tab PO BID PRN PRN Reason: Constipation Temazepam (Restoril) 7.5 mg PO BEDTIME PRN PRN Reason: Sleep Discontinued Medications Sodium Chloride (Normal Saline) 1,000 mls @ 1,000 mls/hr IV ONETIME ONE Stop: 06/19/20 12:40 Last Admin: 06/19/20 13:10 Dose: 1,000 mls/hr Documented by: Non-Formulary Medication (Promethazine Gel) 25 mg TOP Q6H PRN PRN Reason: Nausea - Exam Quality Assessment: No: Supplemental Oxygen General: Alert, Oriented, Cooperative, Mild Distress HEENT: Pupils Equal, Pupils Reactive, EOMI. No: Mucous Membr. Moist/[place] (Dry) Neck: Supple, Trachea Midline Lungs: Clear to Auscultation, Normal Respiratory Effort Cardiovascular: Regular Rate, Regular Rhythm GI/Abdominal Exam: Soft, Distended (Female) Exam: Deferred Back Exam: Normal Inspection, Full Range of Motion Extremities: Pedal Edema (+2 pitting) Skin: Warm, Dry, Intact Neurological: No New Focal Deficit Psy/Mental Status: Alert, Normal Affect Sepsis Event Note - Evaluation Sepsis Screening Result: No Definite Risk - Focused Exam Vital Signs: Vital Signs Temp Pulse Resp BP Pulse Ox 06/21/20 04:10 36.4 C 97 16 105/63 100 06/20/20 23:35 36.3 C 107 H 16 104/63 97 06/20/20 20:28 36.5 C 109 H 18 107/53 L 95 - Problem List & Annotations (1) Ascites, malignant SNOMED Code(s): 886565689 Code(s): R18.0 - MALIGNANT ASCITES Status: Chronic Priority: High Current Visit: Yes (2) Vertigo SNOMED Code(s): 614836171 Code(s): R42 - DIZZINESS AND GIDDINESS Status: Acute Priority: High Current Visit: Yes (3) Generalized weakness SNOMED Code(s): 98678801 Code(s): R53.1 - WEAKNESS Status: Chronic Priority: Medium Current Vi sit: Yes (4) Ovarian cancer SNOMED Code(s): 406667889 Code(s): C56.9 - MALIGNANT NEOPLASM OF UNSPECIFIED OVARY Status: Chronic Priority: Medium Current Visit: Yes Qualifiers: Laterality: unspecified laterality Qualified Code(s): C56.9 - Malignant neoplasm of unspecified ovary (5) Renal insufficiency SNOMED Code(s): 355184583, 632221866 Code(s): N28.9 - DISORDER OF KIDNEY AND URETER, UNSPECIFIED Status: Chronic Priority: High Current Visit: Yes Annotation/Comment:: Stage IV renal failure, EGFR 15 mL/min (6) Protein calorie malnutrition SNOMED Code(s): 539506055 Code(s): E46 - UNSPECIFIED PROTEIN-CALORIE MALNUTRITION Status: Acute Priority: High Current Visit: Yes Qualifiers: Protein-calorie malnutrition severity: moderate Qualified Code(s): E44.0 - Moderate protein-calorie malnutrition - Problem List Review Problem List Initiated/Reviewed/Updated: Yes - My Orders Last 24 Hours: My Active Orders 06/20/20 09:42 Diphenhyd/Lidocaine/MagAl/Gus [First-Mouthwash BLM Susp] 30 ml PO Q4H PRN 06/21/20 06:15 CBC WITH AUTO DIFF [HEME] AM - Plan Plan:: 79-year-old female with ovarian cancer presents to the emergency department after being seen at the clinic with increasing weakness following treatment with doxorubicin. Hypovolemic hyponatremia Acute on chronic renal insufficiency Elevated anion gap likely secondary to hypovolemia Hyponatremia secondary to protein calorie malnutrition Anemia Leukocytosis likely stress response Mouth ulcers, possible thrush Otalgia * Given 2 L normal saline, 1 in the clinic and 1 in the emergency department * Progressive weakness of the last 7 days * Unable to care for herself or have level of care for her * Repeat labs showed continued sodium of 129 and a creatinine down to 3.1, estimated GFR 15 * Albumin low at 1.7, corrected calcium 10.1. AST, ALT, alkaline phosphatase, bilirubin normal * WBC 10.55, hemoglobin 10.9 History of hypertension and hypothyroidism Plan * Admit to medical floor for rehydration * Follow renal function closely. * Order physical therapy and Occupational Therapy consults. * Continue home meds * Check TSH in the morning. * Monitor vital signs every 4 hours. * Dietary consult * Nystatin swish and spit 4 times daily * Analgesia for ear pain. Nothing significant found on exam. * VTE prophylaxis with Lovenox adjusted for renal function * Adjust medications based on renal function. * CODE STATUS: Full code * Disposition admit to floor with likely length of stay 2 to 3 days. * 06/20/2020 The patient is a 79-year-old lady who had been admitted predominantly for weakness. Physical therapy has been ordered. The patient will likely need to h ave therapeutic paracentesis as she does have ovarian cancer. The patient also has had recent chemotherapy and CBC, CMP have been ordered for her. She will continue diet as tolerated. Also I have ordered Magic mouthwash to help with her stomatitis. The patient does have pitting edema consistent with low albumin. This likely represents protein calorie malnutrition will require supplementation. Consult for dietitian has been ordered. 06/21/2020 The patient is a 79-year-old lady who has rather moderate ascites. She will need a paracentesis. Because of the patient's history of ovarian cancer is likely that the ascites is malignant. Paracentesis will be primarily for therapeutic reasons. The patient also has severe hypoalbuminemia which has been a contributing factor to her lower extremity edema. Patient says that she has not used any of the Magic mouthwash for her stomatitis. Dietary consultation has been ordered for the patient. PT OT will continue for the patient. The patient's Lovenox will be continued for VTE prophylaxis. She is currently in a full resuscitative CODE STATUS and this will be honored. She will likely be appropriate to discharge 1 to 2 days.
[2020-06-21] MEDS: Enoxaparin 30 MG/0.3 ML Syringe SUBCUT SCH (08:47)
[2020-06-21] MEDS: Metoprolol Succinate 50 MG Tab.ER PO SCH (09:14)
[2020-06-21] MEDS: Nystatin Susp 100,000 Unit/ML 5 ML Oral Syringe PO SCH ×4 (09:14→20:37)
[2020-06-21] MEDS: Diphenhydramine/Lidocaine/MagAl/Simethicone 119 ML Bottle PO PRN ×2 (12:23→17:12)
[2020-06-22] MEDS ORDERED: HYDROmorphone 1 MG/ML Syringe IVPUSH PRN (01:58)
[2020-06-22] MEDS ORDERED: Phytonadione ORAL 2.5mg/2.5ml Soln Simple Syrup U/D PO ONE (01:59)
[2020-06-22] MEDS ORDERED: Ondansetron 4 MG/2 ML SDV IVPUSH PRN (02:00)
[2020-06-22] MEDS ORDERED: Lactated Ringers 1,000 ML IV SCH (02:00)
[2020-06-22] MEDS ORDERED: Dextrose 5%-0.9% NaCl 1,000 ML ONE (05:51)
[2020-06-22] MEDS: Levothyroxine 25 MCG Tab PO SCH (05:55)
[2020-06-22] MEDS: Dextrose 5%-0.9% NaCl 1,000 ML IV SCH (06:42)
[2020-06-22] MEDS: Nystatin Susp 100,000 Unit/ML 5 ML Oral Syringe PO SCH ×4 (08:26→20:07)
[2020-06-22] MEDS: Enoxaparin 30 MG/0.3 ML Syringe SUBCUT SCH (08:26)
[2020-06-22] MEDS: Metoprolol Succinate 50 MG Tab.ER PO SCH (08:30)
--- NOTE | 2020-06-22 10:19 | PCM.PN ---
- General Info Date of Service: 06/22/20 Admission Dx/Problem (Free Text): Generalized weakness, ascites, ovarian cancer Subjective Update: Patient is a 79-year-old lady who was admitted for generalized weakness. She undergoes regular paracentesis for malignant ascites. The patient has ovarian cancer and has recently undergone chemotherapy. The patient says she still has some abdominal fullness. Pain is controlled. The patient also says that she is not been tolerating her diet. Functional Status: Reports: Pain Controlled. Denies: Tolerating Diet - Review of Systems General: Reports: Weakness, Fatigue HEENT: Reports: No Symptoms Pulmonary: Reports: Shortness of Breath Cardiovascular: Reports: No Symptoms Gastrointestinal: Reports: No Symptoms Genitourinary: Reports: No Symptoms Musculoskeletal: Reports: No Symptoms Skin: Reports: No Symptoms Neurological: Reports: No Symptoms Psychiatric: Reports: No Symptoms - Patient Data Vitals - Most Recent: Last Vital Signs Temp 36.1 C 06/22/20 00:19 Pulse 107 H 06/22/20 08:30 Resp 18 06/22/20 03:12 BP 98/58 L 06/22/20 08:30 Pulse Ox 98 06/22/20 03:12 Weight - Most Recent: 82.826 kg I&O - Last 24 Hours: Intake & Output 06/21/20 06/22/20 06/22/20 22:59 06:59 14:59 Intake Total 1645 2234 50 Output Total 1050 200 Balance 595 2034 50 Lab Results Last 24 Hours: Laboratory Results - last 24 hr 06/22/20 06/22/20 Range/Units 05:45 05:45 WBC 6.11 (3.98-10.04) K/mm3 RBC 4.02 (3.98-5.22) M/mm3 Hgb 10.3 L (11.2-15.7) gm/dl Hct 32.3 L (34.1-44.9) % MCV 80.3 (79.4-94.8) fl MCH 25.6 (25.6-32.2) pg MCHC 31.9 L (32.2-35.5) g/dl RDW Std Deviation 53.0 H (36.4-46.3) fL Plt Count 451 H (182-369) K/mm3 MPV 8.9 L (9.4-12.3) fl Neut % (Auto) 88.7 H (34.0-71.1) % Lymph % (Auto) 5.7 L (19.3-51.7) % [place] % (Auto) 3.6 L (4.7-12.5) % Eos % (Auto) 1.5 (0.7-5.8) Baso % (Auto) 0.2 (0.1-1.2) % Neut # (Auto) 5.42 (1.56-6.13) K/mm3 Lymph # (Auto) 0.35 L (1.18-3.74) K/mm3 [place] # (Auto) 0.22 L (0.24-0.36) K/mm3 Eos # (Auto) 0.09 (0.04-0.36) K/mm3 Baso # (Auto) 0.01 (0.01-0.08) K/mm3 Manual Slide Review Abnormal smear Sodium 135 L (136-145) mEq/L Potassium 3.7 (3.5-5.1) mEq/L Chloride 106 (98-107) mEq/L Carbon Dioxide 15 L (21-32) mEq/L Anion Gap 17.7 H (5-15) BUN 58 H (7-18) mg/dL Creatinine 2.5 H (0.55-1.02) mg/dL Est Cr Clr Drug Dosing 16.96 mL/min Estimated GFR (MDRD) 19 (>60) mL/min BUN/Creatinine Ratio 23.2 H (14-18) Glucose 145 H (83-115) mg/dL Calcium 7.3 L (8.5-10.1) mg/dL Total Bilirubin 0.2 (0.2-1.0) mg/dL AST 12 L (15-37) U/L ALT 11 L (14-59) U/L Alkaline Phosphatase 98 (46-116) U/L C-Reactive Protein 14.3 H* (<1.0) mg/dL Total Protein 4.4 L (6.4-8.2) g/dl Albumin 1.2 L (3.4-5.0) g/dl Globulin 3.2 gm/dL Albumin/Globulin Ratio 0.4 L (1-2) Med Orders - Current: Current Medications Acetaminophen (Tylenol) 650 mg PO Q4H PRN PRN Reason: Pain (Mild 1-3)/fever Diphenhydr/Magaldrate/Simeth/Lidoca (First-Mouthwash Blm Susp) 30 ml PO Q4H PRN PRN Reason: Dryness Last Admin: 06/21/20 17:12 Dose: 30 ml Documented by: Enoxaparin Sodium (Lovenox) 30 mg SUBCUT DAILY [facility] Last Admin: 06/22/20 08:26 Dose: 30 mg Documented by: Hydromorphone HCl (Dilaudid) 0.25 mg IVPUSH Q2H PRN PRN Reason: Pain (severe 7-10) Levothyroxine Sodium (Levothyroxine) 25 mcg PO ACBREAKFAST [facility] Last Admin: 06/22/20 05:55 Dose: Not Given Documented by: Magnesium Hydroxide (Milk Of Magnesia) 30 ml PO Q12H PRN PRN Reason: Constipation Metoprolol Succinate (Toprol Xl) 100 mg PO DAILY [facility] Last Admin: 06/22/20 08:30 Dose: Not Given Documented by: Nystatin (Nystatin Oral Syringe) 500,000 unit PO QID [facility] Last Admin: 06/22/20 08:26 Dose: Not Given Documented by: Ondansetron HCl (Zofran) 4 mg IV Q4H PRN PRN Reason: Nausea/Vomiting Last Admin: 06/19/20 21:03 Dose: 4 mg Documented by: Oxycodone HCl (Oxycodone) 5 mg PO Q4H PRN PRN Reason: Pain (moderate 4-6) Polyethylene Glycol (Miralax) 17 gm PO DAILY PRN PRN Reason: Constipation Senna/Docusate Sodium (Senna Plus) 1 tab PO BID PRN PRN Reason: Constipation Temazepam (Restoril) 7.5 mg PO BEDTIME PRN PRN Reason: Sleep Discontinued Medications Hydromorphone HCl (Dilaudid) 1 mg IVPUSH Q1H PRN PRN Reason: Pain Sodium Chloride (Normal Saline) 1,000 mls @ 1,000 mls/hr IV ONETIME ONE Stop: 06/19/20 12:40 Last Admin: 06/19/20 13:10 Dose: 1,000 mls/hr Documented by: Dextrose/Sodium Chloride (Dextrose 5%-Normal Saline) 1,000 mls @ 100 mls/hr IV ASDIRECTED [facility] Last Admin: 06/22/20 06:42 Dose: 100 mls/hr Documented by: Dextrose/Sodium Chloride (Dextrose 5%-Normal Saline) Confirm Administered Dose 1,000 mls @ as directed .ROUTE .[facility] Stop: 06/22/20 05:52 Non-Formulary Medication (Promethazine Gel) 25 mg TOP Q6H PRN PRN Reason: Nausea Ondansetron HCl (Zofran) 4 mg IVPUSH Q6H PRN PRN Reason: Nausea/Vomiting - Exam Quality Assessment: No: Supplemental Oxygen General: Alert, Oriented, Cooperative HEENT: Pupils Equal, Pupils Reactive, EOMI Neck: Supple, Trachea Midline Lungs: Clear to Auscultation, Normal Respiratory Effort Cardiovascular: Regular Rate, Regular Rhythm GI/Abdominal Exam: Normal Bowel Sounds, Soft, Distended, Tender, Other (Ascites) (Female) Exam: Deferred Back Exam: Normal Inspection, Full Range of Motion Extremities: Normal Inspection, No Pedal Edema Skin: Warm, Dry, Intact Neurological: No New Focal Deficit Psy/Mental Status: Alert, Normal Affect Sepsis Event Note - Evaluation Sepsis Screening Result: No Definite Risk - Focused Exam Vital Signs: Vital Signs Temp Pulse Resp BP Pulse Ox 06/22/20 08:30 107 H 98/58 L 06/22/20 03:12 115 H 18 119/74 98 06/22/20 00:19 36.1 C 107 H 18 120/73 91 L - Problem List & Annotations (1) Ascites, malignant SNOMED Code(s): 610948245 Code(s): R18.0 - MALIGNANT ASCITES Status: Chronic Priority: High Current Visit: Yes (2) Vertigo SNOMED Code(s): 186354691 Code(s): R42 - DIZZINESS AND GIDDINESS Status: Acute Priority: High Current Visit: Yes (3) Generalized weakness SNOMED Code(s): 79797806 Code(s): R53.1 - WEAKNESS Status: Chronic Priority: Medium Current Visit: Yes (4) Ovarian cancer SNOMED Code(s): 170243650 Code(s): C56.9 - MALIGNANT NEOPLASM OF UNSPECIFIED OVARY Status: Chronic Priority: Medium Current Visit: Yes Qualifiers: Laterality: unspecified laterality Qualified Code(s): C56.9 - Malignant neoplasm of unspecified ovary (5) Renal insufficiency SNOMED Code(s): 817305495, 679492105 Code(s): N28.9 - DISORDER OF KIDNEY AND URETER, UNSPECIFIED Status: Chronic Priority: High Current Visit: Yes Annotation/Comment:: Stage IV renal failure, EGFR 15 mL/min (6) Protein calorie malnutrition SNOMED Code(s): 003526746 Code(s): E46 - UNSPECIFIED PROTEIN-CALORIE MALNUTRITION Status: Acute Priority: High Current Visit: Yes Qualifiers: Protein-calorie malnutrition severity: moderate Qualified Code(s): E44.0 - Moderate protein-calorie malnutrition - Problem List Review Problem List Initiated/Reviewed/Updated: Yes - My Orders Last 24 Hours: My Active Orders 06/22/20 09:26 Consult to Physician [CONS] Routine 06/22/20 09:27 Notify Provider Consults [RC] ASDIRECTED - Plan Plan:: 79-year-old female with ovarian cancer presents to the emergency department after being seen at the clinic with increasing weakness following treatment with doxorubicin. Hypovolemic hyponatremia Acute on chronic renal insufficiency Elevated anion gap likely secondary to hypovolemia Hyponatremia secondary to protein calorie malnutrition Anemia Leukocytosis likely stress response Mouth ulcers, possible thrush Otalgia * Given 2 L normal saline, 1 in the clinic and 1 in the emergency department * Progressive weakness of the last 7 days * Unable to care for herself or have level of care for her * Repeat labs showed continued sodium of 129 and a creatinine down to 3.1, estimated GFR 15 * Albumin low at 1.7, corrected calcium 10.1. AST, ALT, alkaline phosphatase, bilirubin normal * WBC 10.55, hemoglobin 10.9 History of hypertension and hypothyroidism Plan * Admit to medical floor for rehydration * Follow renal function closely. * Order physical therapy and Occupational Therapy consults. * Continue home meds * Check TSH in the morning. * Monitor vital signs every 4 hours. * Dietary consult * Nystatin swish and spit 4 times daily * Analgesia for ear pain. Nothing significant found on exam. * VTE prophylaxis with Lovenox adjusted for renal function * Adjust medications based on renal function. * CODE STATUS: Full code * Disposition admit to floor with likely length of stay 2 to 3 days. * 06/20/2020 The patient is a 79-year-old lady who had been admitted predominantly for weakness. Physical therapy has been ordered. The patient will likely need to have therapeutic paracentesis as she does have ovarian cancer. The patient also has had recent chemotherapy and CBC, CMP have been ordered for her. She will continue diet as tolerated. Also I have ordered Magic mouthwash to help with her stomatitis. The patient does have pitting edema consistent with low albumin. This likely represents protein calorie malnutrition will require supplementation. Consult for dietitian has been ordered. 06/21/2020 The patient is a 79-year-old lady who has rather moderate ascites. She will need a paracentesis. Because of the patient's history of ovarian cancer is likely that the ascites is malignant. Paracentesis will be primarily for therapeutic reasons. The patient also has severe hypoalbuminemia which has been a contributing factor to her lower extremity edema. Patient says that she has not used any of the Magic mouthwash for her stomatitis. Dietary consultation has been ordered for the patient. PT OT will continue for the patient. The patient's Lovenox will be continued for VTE prophylaxis. She is currently in a full resuscitative CODE STATUS and this will be honored. She will likely be appropriate to discharge 1 to 2 days. 06/22/2020 The patient still has ascites. I have consulted Dr. Peralta, surgeon, to query about therapeutic paracentesis. The patient says that she is still having uncomfortable burning sensation in her mouth and has been unable to tolerate the Magic mouthwash for her stomatitis. I will keep this on the medication record. Dietary consultation has also been ordered for the patient PT OT will be co ntinued for her. She is currently in a full resuscitative code and she should be likely appropriate for discharge tomorrow after paracentesis. Repeat laboratory studies have been ordered for the morning.
--- NOTE | 2020-06-22 14:17 | PCM.PRNOTE ---
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 Ultrasound was used at bedside to confirm good window for needle placement. The LLQ of the abdomen was prepped and draped in sterile fashion. 6 cc 1% lidocaine was injected intradermally and along a tract through the abdominal wall into the peritoneal cavity. Ascites was aspirated with the syringe, straw-colored. A small stab incision was made and The paracentesis catheter was threaded into the abdominal cavity over a large hollow needle. Ascites was again aspirated and the catheter passed into the abdomen as the guide needle was withdrawn. The catheter was hooked to tubing going to negative pressure glass bottles. A total of 6 L straw colored ascites was drained. The catheter was withdrawn and manual pressure held at site until hemostasis was achieved. A band-aid was placed for dressing. The patient tolerated the procedure well. Eliceo Peralta MD General Surgery
[2020-06-22] MEDS ORDERED: Albumin 25% 12.5 GM/50 ML BAG IV ONE (16:00)
[2020-06-22] MEDS: Sodium Chloride 0.9% 1,000 ML IV SCH (17:31)
[2020-06-23] MEDS: Levothyroxine 25 MCG Tab PO SCH ×2 (04:50→05:00)
[2020-06-23] MEDS: Sodium Chloride 0.9% 1,000 ML IV SCH ×2 (04:50→18:03)
[2020-06-23] MEDS: Enoxaparin 30 MG/0.3 ML Syringe SUBCUT SCH (08:34)
[2020-06-23] MEDS: Diphenhydramine/Lidocaine/MagAl/Simethicone 119 ML Bottle PO PRN (08:35)
--- NOTE | 2020-06-23 08:36 | PCM.PN ---
- General Info Date of Service: 06/23/20 Admission Dx/Problem (Free Text): Generalized weakness, ascites, ovarian cancer Subjective Update: Patient is a 79-year-old lady who had been admitted for generalized weakness. She does have ovarian cancer and frequently accumulating ascites. The patient's ascites was drained yesterday with 6 L of fluid removed. The patient says that she has not been tolerating her diet due to her oral pain and ulcers. Patient says that she has not been using the Magic mouthwash. She is still feeling weak and fatigued. Functional Status: Reports: Pain Controlled. Denies: Tolerating Diet - Review of Systems General: Reports: Weakness, Fatigue HEENT: Reports: Other (Stomatitis) Pulmonary: Reports: No Symptoms Cardiovascular: Reports: No Symptoms Gastrointestinal: Reports: Abdominal Pain Genitourinary: Reports: No Symptoms Musculoskeletal: Reports: No Symptoms Skin: Reports: No Symptoms Neurological: Reports: No Symptoms Psychiatric: Reports: No Symptoms - Patient Data Vitals - Most Recent: Last Vital Signs Temp 36.6 C 06/23/20 01:58 Pulse 100 06/23/20 01:58 Resp 16 06/23/20 01:58 BP 127/100 H 06/23/20 01:58 Pulse Ox 91 L 06/23/20 01:58 Weight - Most Recent: 76.43 kg I&O - Last 24 Hours: Intake & Output 06/22/20 06/23/20 06/23/20 22:59 06:59 14:59 Intake Total 1270 1200 Output Total 100 150 Balance 1170 1050 Lab Results Last 24 Hours: Laboratory Results - last 24 hr 06/23/20 06/23/20 06/23/20 Range/Units 06:43 06:43 06:43 WBC 4.77 (3.98-10.04) K/mm3 RBC 3.75 L (3.98-5.22) M/mm3 Hgb 9.7 L (11.2-15.7) gm/dl Hct 30.1 L (34.1-44.9) % MCV 80.3 (79.4-94.8) fl MCH 25.9 (25.6-32.2) pg MCHC 32.2 (32.2-35.5) g/dl RDW Std Deviation 52.8 H (36.4-46.3) fL Plt Count 410 H (182-369) K/mm3 MPV 8.7 L (9.4-12.3) fl Neut % (Auto) 88.4 H (34.0-71.1) % Lymph % (Auto) 5.7 L (19.3-51.7) % [place] % (Auto) 4.2 L (4.7-12.5) % Eos % (Auto) 1.3 (0.7-5.8) Baso % (Auto) 0.0 L (0.1-1.2) % Neut # (Auto) 4.22 (1.56-6.13) K/mm3 Lymph # (Auto) 0.27 L (1.18-3.74) K/mm3 [place] # (Auto) 0.20 L (0.24-0.36) K/mm3 Eos # (Auto) 0.06 (0.04-0.36) K/mm3 Baso # (Auto) 0.00 L (0.01-0.08) K/mm3 Manual Slide Review Abnormal smear D-Dimer, Quantitative 1.72 H (0.19-0.50) mg/L Sodium 136 (136-145) mEq/L Potassium 3.6 (3.5-5.1) mEq/L Chloride 108 H (98-107) mEq/L Carbon Dioxide 15 L (21-32) mEq/L Anion Gap 16.6 H (5-15) BUN 58 H (7-18) mg/dL Creatinine 2.2 H (0.55-1.02) mg/dL Est Cr Clr Drug Dosing 19.27 mL/min Estimated GFR (MDRD) 22 (>60) mL/min BUN/Creatinine Ratio 26.4 H (14-18) Glucose 122 H (83-115) mg/dL Calcium 7.6 L (8.5-10.1) mg/dL Phosphorus 3.4 (2.6-4.7) mg/dL Magnesium 1.5 L (1.8-2.4) mg/dl Total Bilirubin 0.2 (0.2-1.0) mg/dL AST 15 (15-37) U/L ALT 14 (14-59) U/L Alkaline Phosphatase 101 (46-116) U/L C-Reactive Protein 14.8 H* (<1.0) mg/dL Total Protein 4.1 L (6.4-8.2) g/dl Albumin 1.2 L (3.4-5.0) g/dl Globulin 2.9 gm/dL Albumin/Globulin Ratio 0.4 L (1-2) Med Orders - Current: Current Medications Acetaminophen (Tylenol) 650 mg PO Q4H PRN PRN Reason: Pain (Mild 1-3)/fever Diphenhydr/Magaldrate/Simeth/Lidoca (First-Mouthwash Blm Susp) 30 ml PO Q4H PRN PRN Reason: Dryness Last Admin: 06/21/20 17:12 Dose: 30 ml Documented by: Enoxaparin Sodium (Lovenox) 30 mg SUBCUT DAILY [facility] Last Admin: 06/22/20 08:26 Dose: 30 mg Documented by: Hydromorphone HCl (Dilaudid) 0.25 mg IVPUSH Q2H PRN PRN Reason: Pain (severe 7-10) Sodium Chloride (Normal Saline) 1,000 mls @ 75 mls/hr IV ASDIRECTED [facility] [place] Last Admin: 06/23/20 04:50 Dose: 75 mls/hr Documented by: Levothyroxine Sodium (Levothyroxine) 25 mcg PO ACBREAKFAST [facility] [place] Last Admin: 06/23/20 05:00 Dose: Not Given Documented by: Magnesium Hydroxide (Milk Of Magnesia) 30 ml PO Q12H PRN PRN Reason: Constipation Metoprolol Succinate (Toprol Xl) 100 mg PO DAILY [facility] [place] Last Admin: 06/22/20 08:30 Dose: Not Given Documented by: Nystatin (Nystatin Oral Syringe) 500,000 unit PO QID [facility] Last Admin: 06/22/20 20:07 Dose: Not Given Documented by: Ondansetron HCl (Zofran) 4 mg IV Q4H PRN PRN Reason: Nausea/Vomiting Last Admin: 06/19/20 21:03 Dose: 4 mg Documented by: Oxycodone HCl (Oxycodone) 5 mg PO Q4H PRN PRN Reason: Pain (moderate 4-6) Polyethylene Glycol (Miralax) 17 gm PO DAILY PRN PRN Reason: Constipation Senna/Docusate Sodium (Senna Plus) 1 tab PO BID PRN PRN Reason: Constipation Temazepam (Restoril) 7.5 mg PO BEDTIME PRN PRN Reason: Sleep Discontinued Medications Hydromorphone HCl (Dilaudid) 1 mg IVPUSH Q1H PRN PRN Reason: Pain Sodium Chloride (Normal Saline) 1,000 mls @ 1,000 mls/hr IV ONETIME ONE Stop: 06/19/20 12:40 Last Admin: 06/19/20 13:10 Dose: 1,000 mls/hr Documented by: Dextrose/Sodium Chloride (Dextrose 5%-Normal Saline) 1,000 mls @ 100 mls/hr IV ASDIRECTED [facility] [place] Last Admin: 06/22/20 06:42 Dose: 100 mls/hr Documented by: Dextrose/Sodium Chloride (Dextrose 5%-Normal Saline) Confirm Administered Dose 1,000 mls @ as directed .ROUTE .STK-MED ONE Stop: 06/22/20 05:52 Last Admin: 06/22/20 10:59 Dose: Not Given Documented by: Albumin Human (Flexbumin 25%) 12.5 gm in 50 mls @ 50 mls/hr IV ONETIME ONE Stop: 06/22/20 16:59 Last Admin: 06/22/20 16:28 Dose: 50 mls/hr Documented by: Non-Formulary Medication (Promethazine Gel) 25 mg TOP Q6H PRN PRN Reason: Nausea Ondansetron HCl (Zofran) 4 mg IVPUSH Q6H PRN PRN Reason: Nausea/Vomiting - Exam Quality Assessment: Supplemental Oxygen General: Alert, Oriented, Cooperative, Mild Distress HEENT: Pupils Equal, Pupils Reactive. No: Mucous Membr. Moist/[place] (Mouth inflamed with ulcerations.) Neck: Supple, Trachea Midline Lungs: Clear to Auscultation, Normal Respiratory Effort Cardiovascular: Regular Rate, Regular Rhythm GI/Abdominal Exam: Soft, No Distention, Tender. No: Normal Bowel Sounds (Hypoactive) (Female) Exam: Deferred Back Exam: Normal Inspection. No: Full Range of Motion (Age-appropriate) Extremities: Pedal Edema (Pedal edema secondary to oncotic pressure from low albumin) Skin: Warm, Dry, Intact Neurological: No New Focal Deficit Psy/Mental Status: Alert, Normal Affect Sepsis Event Note - Evaluation Sepsis Screening Result: No Definite Risk - Focused Exam Vital Signs: Vital Signs Temp Pulse Resp BP Pulse Ox 06/23/20 01:58 36.6 C 100 16 127/100 H 91 L - Problem List & Annotations (1) Ascites, malignant SNOMED Code(s): 350461765 Code(s): R18.0 - MALIGNANT ASCITES Status: Chronic Priority: High Current Visit: Yes (2) Vertigo SNOMED Code(s): 361480074 Code(s): R42 - DIZZINESS AND GIDDINESS Status: Acute Priority: High Current Visit: Yes (3) Generalized weakness SNOMED Code(s): 73048791 Code(s): R53.1 - WEAKNESS Status: Chronic Priority: Medium Current Visit: Yes (4) Ovarian cancer SNOMED Code(s): 835585621 Code(s): C56.9 - MALIGNANT NEOPLASM OF UNSPECIFIED OVARY Status: Chronic Priority: Medium Current Visit: Yes Qualifiers: Laterality: unspecified laterality Qualified Code(s): C56.9 - Malignant neoplasm of unspecified ovary (5) Renal insufficiency SNOMED Code(s): 013148642, 870596819 Code(s): N28.9 - DISORDER OF KIDNEY AND URETER, UNSPECIFIED Status: Chronic Priority: High Current Visit: Yes Annotation/Comment:: Stage IV renal failure, EGFR 15 mL/min (6) Protein calorie malnutrition SNOMED Code(s): 080047708 Code(s): E46 - UNSPECIFIED PROTEIN-CALORIE MALNUTRITION Status: Acute P riority: High Current Visit: Yes Qualifiers: Protein-calorie malnutrition severity: moderate Qualified Code(s): E44.0 - Moderate protein-calorie malnutrition - Problem List Review Problem List Initiated/Reviewed/Updated: Yes - My Orders Last 24 Hours: My Active Orders 06/22/20 09:26 Consult to Physician [CONS] Routine 06/22/20 09:27 Notify Provider Consults [RC] ASDIRECTED 06/22/20 17:00 Sodium Chloride 0.9% [Normal Saline] 1,000 ml IV ASDIRECTED - Plan Plan:: 79-year-old female with ovarian cancer presents to the emergency department after being seen at the clinic with increasing weakness following treatment with doxorubicin. Hypovolemic hyponatremia Acute on chronic renal insufficiency Elevated anion gap likely secondary to hypovolemia Hyponatremia secondary to protein calorie malnutrition Anemia Leukocytosis likely stress response Mouth ulcers, possible thrush Otalgia * Given 2 L normal saline, 1 in the clinic and 1 in the emergency department * Progressive weakness of the last 7 days * Unable to care for herself or have level of care for her * Repeat labs showed continued sodium of 129 and a creatinine down to 3.1, estimated GFR 15 * Albumin low at 1.7, corrected calcium 10.1. AST, ALT, alkaline phosphatase, bilirubin normal * WBC 10.55, hemoglobin 10.9 History of hypertension and hypothyroidism Plan * Admit to medical floor for rehydration * Follow renal function closely. * Order physical therapy and Occupational Therapy consults. * Continue home meds * Check TSH in the morning. * Monitor vital signs every 4 hours. * Dietary consult * Nystatin swish and spit 4 times daily * Analgesia for ear pain. Nothing significant found on exam. * VTE prophylaxis with Lovenox adjusted for renal function * Adjust medications based on renal function. * CODE STATUS: Full code * Disposition admit to floor with likely length of stay 2 to 3 days. * 06/20/2020 The patient is a 79-year-old lady who had been admitted predominantly for weakness. Physical therapy has been ordered. The patient will likely need to have therapeutic paracentesis as she does have ovarian cancer. The patient also has had recent chemotherapy and CBC, CMP have been ordered for her. She will continue diet as tolerated. Also I have ordered Magic mouthwash to help with her stomatitis. The patient does have pitting edema consistent with low albumin. This likely represents protein calorie malnutrition will require supplementation. Consult for dietitian has been ordered. 06/21/2020 The patient is a 79-year-old lady who has rather moderate ascites. She will need a paracentesis. Because of the patient's history of ovarian cancer is likely that the ascites is malignant. Paracentesis will be primarily for therapeutic reasons. The patient also has severe hypoalbuminemia which has been a contributing factor to her lower extremity edema. Patient says that she has not used any of the Magic mouthwash for her stomatitis. Dietary consultation has been ordered for the patient. PT OT will continue for the patient. The patient's Lovenox will be continued for VTE prophylaxis. She is currently in a full resuscitative CODE STATUS and this will be honored. She will likely be appropriate to discharge 1 to 2 days. 06/22/2020 The patient still has ascites. I have consulted Dr. Peralta, surgeon, to query about therapeutic paracentesis. The patient says that she is still having uncomfortable burning sensation in her mouth and has been unable to tolerate the Magic mouthwash for her stomatitis. I will keep this on the medication record. Dietary consultation has also been ordered for the patient PT OT will be continued for her. She is currently in a full resuscitative code and she should be likely appropriate for discharge tomorrow after paracentesis. Repeat laboratory studies have been ordered for the morning. 06/23/20 The patient's primary complaint today is stomatitis. I have encouraged the patient to use the Magic mouthwash to help her. She still remains protein and calorie malnourished as related to her hypoalbuminemia. PT OT will continue for the patient. The patient will also have repeat laboratory studies. I did have a long discussion with the patient with regards to long-term health and had discussed DNR/DNI categories. The patient is still unsure and so will remain in full code category. The patient will need to continue with dietary supplements to help her protein. She also has been encouraged to continue with oral intake. The patient also had paracentesis yesterday without incident and had 6 L removed. I had also ordered 50 of albumin to help with her oncotic pressure.
[2020-06-23] MEDS: Metoprolol Succinate 50 MG Tab.ER PO SCH (08:39)
[2020-06-23] MEDS: Nystatin Susp 100,000 Unit/ML 5 ML Oral Syringe PO SCH ×4 (08:50→21:48)
[2020-06-23] MEDS: Nystatin Topical Powder 15 GM Bottle TOP SCH ×3 (11:24→21:10)
[2020-06-24] MEDS: Levothyroxine 25 MCG Tab PO SCH (06:01)
[2020-06-24] MEDS: Sodium Chloride 0.9% 1,000 ML IV SCH (06:02)
[2020-06-24] MEDS: Nystatin Susp 100,000 Unit/ML 5 ML Oral Syringe PO SCH ×4 (08:27→20:36)
--- NOTE | 2020-06-24 09:34 | PCM.PN ---
- General Info Date of Service: 06/24/20 Admission Dx/Problem (Free Text): Generalized weakness, ascites, ovarian cancer Subjective Update: The patient is a 79-year-old lady who was admitted to acute hospitalization on June 19, 2020. Patient was admitted out of concern for weakness and stage IV ovarian cancer with ascites. The patient today says that she still feels very weak. She has not been able to tolerate her diet. She says the pain in her mouth is still present. Functional Status: Denies: Pain Controlled, Tolerating Diet, Ambulating - Review of Systems General: Reports: Weakness, Fatigue HEENT: Reports: Other (Mouth pain) Pulmonary: Reports: Shortness of Breath Cardiovascular: Reports: Edema Gastrointestinal: Reports: Abdominal Pain Genitourinary: Reports: No Symptoms Musculoskeletal: Reports: No Symptoms Skin: Reports: No Symptoms Neurological: Reports: No Symptoms Psychiatric: Reports: No Symptoms - Patient Data Vitals - Most Recent: Last Vital Signs Temp 36.6 C 06/24/20 05:58 Pulse 109 H 06/24/20 05:58 Resp 16 06/24/20 05:58 BP 110/63 06/24/20 05:58 Pulse Ox 97 06/24/20 05:58 Weight - Most Recent: 77.927 kg I&O - Last 24 Hours: Intake & Output 06/23/20 06/24/20 06/24/20 22:59 06:59 14:59 Intake Total 1192 875 Output Total 425 300 Balance 767 575 Lab Results Last 24 Hours: Laboratory Results - last 24 hr 06/24/20 06/24/20 Range/Units 04:30 04:30 WBC 3.35 L (3.98-10.04) K/mm3 RBC 3.84 L (3.98-5.22) M/mm3 Hgb 9.9 L (11.2-15.7) gm/dl Hct 30.9 L (34.1-44.9) % MCV 80.5 (79.4-94.8) fl MCH 25.8 (25.6-32.2) pg MCHC 32.0 L (32.2-35.5) g/dl RDW Std Deviation 54.0 H (36.4-46.3) fL Plt Count 374 H (182-369) K/mm3 MPV 9.2 L (9.4-12.3) fl Neut % (Auto) 79.9 H (34.0-71.1) % Lymph % (Auto) 9.0 L (19.3-51.7) % [place] % (Auto) 8.1 (4.7-12.5) % Eos % (Auto) 2.4 (0.7-5.8) Baso % (Auto) 0.3 (0.1-1.2) % Neut # (Auto) 2.68 (1.56-6.13) K/mm3 Lymph # (Auto) 0.30 L (1.18-3.74) K/mm3 [place] # (Auto) 0.27 (0.24-0.36) K/mm3 Eos # (Auto) 0.08 (0.04-0.36) K/mm3 Baso # (Auto) 0.01 (0.01-0.08) K/mm3 Manual Slide Review Abnormal smear Sodium 137 (136-145) mEq/L Potassium 3.6 (3.5-5.1) mEq/L Chloride 110 H (98-107) mEq/L Carbon Dioxide 16 L (21-32) mEq/L Anion Gap 14.6 (5-15) BUN 55 H (7-18) mg/dL Creatinine 2.1 H (0.55-1.02) mg/dL Est Cr Clr Drug Dosing 20.19 mL/min Estimated GFR (MDRD) 23 (>60) mL/min BUN/Creatinine Ratio 26.2 H (14-18) Glucose 114 (83-115) mg/dL Calcium 7.4 L (8.5-10.1) mg/dL C-Reactive Protein 16.1 H* (<1.0) mg/dL Med Orders - Current: Current Medications Acetaminophen (Tylenol) 650 mg PO Q4H PRN PRN Reason: Pain (Mild 1-3)/fever Diphenhydr/Magaldrate/Simeth/Lidoca (First-Mouthwash Blm Susp) 30 ml PO Q4H PRN PRN Reason: Dryness Last Admin: 06/23/20 08:35 Dose: 10 ml Documented by: Enoxaparin Sodium (Lovenox) 30 mg SUBCUT DAILY [facility] Last Admin: 06/23/20 08:34 Dose: 30 mg Documented by: Hydromorphone HCl (Dilaudid) 0.25 mg IVPUSH Q2H PRN PRN Reason: Pain (severe 7-10) Sodium Chloride (Normal Saline) 1,000 mls @ 75 mls/hr IV ASDIRECTED [facility] Last Admin: 06/24/20 06:02 Dose: 75 mls/hr Documented by: Levothyroxine Sodium (Levothyroxine) 25 mcg PO ACBREAKFAST [facility] Last Admin: 06/24/20 06:01 Dose: 25 mcg Documented by: Magnesium Hydroxide (Milk Of Magnesia) 30 ml PO Q12H PRN PRN Reason: Constipation Metoprolol Succinate (Toprol Xl) 100 mg PO DAILY [facility] Last Admin: 06/23/20 08:39 Dose: Not Given Documented by: Nystatin (Nystatin Oral Syringe) 500,000 unit PO QID [facility] Last Admin: 06/24/20 08:27 Dose: Not Given Documented by: Nystatin (Nystop) 0 gm TOP TID [facility] Last Admin: 06/23/20 21:10 Dose: 1 applic Documented by: Ondansetron HCl (Zofran) 4 mg IV Q4H PRN PRN Reason: Nausea/Vomiting Last Admin: 06/19/20 21:03 Dose: 4 mg Documented by: Oxycodone HCl (Oxycodone) 5 mg PO Q4H PRN PRN Reason: Pain (moderate 4-6) Polyethylene Glycol (Miralax) 17 gm PO DAILY PRN PRN Reason: Constipation Senna/Docusate Sodium (Senna Plus) 1 tab PO BID PRN PRN Reason: Constipation Temazepam (Restoril) 7.5 mg PO BEDTIME PRN PRN Reason: Sleep Discontinued Medications Hydromorphone HCl (Dilaudid) 1 mg IVPUSH Q1H PRN PRN Reason: Pain Sodium Chloride (Normal Saline) 1,000 mls @ 1,000 mls/hr IV ONETIME ONE Stop: 06/19/20 12:40 Last Admin: 06/19/20 13:10 Dose: 1,000 mls/hr Documented by: Dextrose/Sodium Chloride (Dextrose 5%-Normal Saline) 1,000 mls @ 100 mls/hr IV ASDIRECTED [facility] Last Admin: 06/22/20 06:42 Dose: 100 mls/hr Documented by: Dextrose/Sodium Chloride (Dextrose 5%-Normal Saline) Confirm Administered Dose 1,000 mls @ as directed .ROUTE .STK-MED ONE Stop: 06/22/20 05:52 Last Admin: 06/22/20 10:59 Dose: Not Given Documented by: Albumin Human (Flexbumin 25%) 12.5 gm in 50 mls @ 50 mls/hr IV ONETIME ONE Stop: 06/22/20 16:59 Last Admin: 06/22/20 16:28 Dose: 50 mls/hr Documented by: Non-Formulary Medication (Promethazine Gel) 25 mg TOP Q6H PRN PRN Reason: Nausea Ondansetron HCl (Zofran) 4 mg IVPUSH Q6H PRN PRN Reason: Nausea/Vomiting - Exam Quality Assessment: No: Supplemental Oxygen General: Alert, Oriented HEENT: Pupils Equal, Pupils Reactive. No: Mucous Membr. Moist/[place] (Dry, mouth ulcers) Neck: Supple, Trachea Midline Lungs: Normal Respiratory Effort, Rales (Predominantly right lung) Cardiovascular: Regular Rate, Regular Rhythm GI/Abdominal Exam: Normal Bowel Sounds, Soft, No Distention (Female) Exam: Deferred Back Exam: Normal Inspection, Full Range of Motion Extremities: Pedal Edema Skin: Warm, Dry, Intact Neurological: No New Focal Deficit. No: Normal Gait (Not able to walk effectively) Psy/Mental Status: Alert, Normal Affect Sepsis Event Note - Evaluation Sepsis Screening Result: No Definite Risk - Focused Exam Vital Signs: Vital Signs Temp Pulse Resp BP Pulse Ox 06/24/20 05:58 36.6 C 109 H 16 110/63 97 06/24/20 00:06 36.4 C 109 H 16 113/56 L 96 - Problem List & Annotations (1) Stomatitis and mucositis, unspecified SNOMED Code(s): 38410864 Code(s): K12.1 - OTHER FORMS OF STOMATITIS; K12.30 - ORAL MUCOSITIS (ULCERATIVE), UNSPECIFIED Status: Acute Priority: High Current Visit: Yes (2) Ascites, malignant SNOMED Code(s): 123205671 Code(s): R18.0 - MALIGNANT ASCITES Status: Chronic Priority: High Current Visit: Yes (3) Vertigo SNOMED Code(s): 273637647 Code(s): R42 - DIZZINESS AND GIDDINESS Status: Acute Priority: High Current Visit: Yes (4) Generalized weakness SNOMED Code(s): 97346335 Code(s): R53.1 - WEAKNESS Status: Chronic Priority: Medium Current Visit: Yes (5) Ovarian cancer SNOMED Code(s): 534172462 Code(s): C56.9 - MALIGNANT NEOPLASM OF UNSPECIFIED OVARY Status: Chronic Priority: Medium Current Visit: Yes Qualifiers: Laterality: unspecified laterality Qualified Code(s): C56.9 - Malignant neoplasm of unspecified ovary (6) Renal insufficiency SNOMED Code(s): 056061740, 515884306 Code(s): N28.9 - DISORDER OF KIDNEY AND URETER, UNSPECIFIED Status: Chronic Priority: High Current Visit: Yes Annotation/Comment:: Stage IV renal failure, EGFR 15 mL/min (7) Protein calorie malnutrition SNOMED Code(s): 833493712 Code(s): E46 - UNSPECIFIED PROTEIN-CALORIE MALNUTRITION Status: Acute Priority: High Current Visit: Yes Qualifiers: Protein-calorie malnutrition severity: moderate Qualified Code(s): E44.0 - Moderate protein-calorie malnutrition - Problem List Review Problem List Initiated/Reviewed/Updated: Yes - My Orders Last 24 Hours: My Active Orders 06/23/20 11:00 Nystatin [Nystop] See Dose Instructions TOP TID - Plan Plan:: 79-year-old female with ovarian cancer presents to the emergency department after being seen at the clinic with increasing weakness following treatment with doxorubicin. Hypovolemic hyponatremia Acute on chronic renal insufficiency Elevated anion gap likely secondary to hypovolemia Hyponatremia secondary to protein calorie malnutrition Anemia Leukocytosis likely stress response Mouth ulcers, possible thrush Otalgia * Given 2 L normal saline, 1 in the clinic and 1 in the emergency department * Progressive weakness of the last 7 days * Unable to care for herself or have level of care for her * Repeat labs showed continued sodium of 129 and a creatinine down to 3.1, estimated GFR 15 * Albumin low at 1.7, corrected calcium 10.1. AST, ALT, alkaline phosphatase, bilirubin normal * WBC 10.55, hemoglobin 10.9 History of hypertension and hypothyroidism Plan * Admit to medical floor for rehydration * Follow renal function closely. * Order physical therapy and Occupational Therapy consults. * Continue home meds * Check TSH in the morning. * Monitor vital signs every 4 hours. * Dietary consult * Nystatin swish and spit 4 times daily * Analgesia for ear pain. Nothing significant found on exam. * VTE prophylaxis with Lovenox adjusted for renal function * Adjust medications based on renal function. * CODE STATUS: Full code * Disposition admit to floor with likely length of stay 2 to 3 days. * 06/20/2020 The patient is a 79-year-old lady who had been admitted predominantly for weakness. Physical therapy has been ordered. The patient will likely need to have therapeutic paracentesis as she does have ovarian cancer. The patient also has had recent chemotherapy and CBC, CMP have been ordered for her. She will continue diet as tolerated. Also I have ordered Magic mouthwash to help with her stomatitis. The patient does have pitting edema consistent with low albumin. This likely represents protein calorie malnutrition will require supplementation. Consult for dietitian has been ordered. 06/21/2020 The patient is a 79-year-old lady who has rather moderate ascites. She will need a paracentesis. Because of the patient's history of ovarian cancer is likely that the ascites is malignant. Paracentesis will be primarily for therapeutic reasons. The patient also has severe hypoalbuminemia which has been a contributing factor to her lower extremity edema. Patient says that she has not used any of the Magic mouthwash for her stomatitis. Dietary consultation has been ordered for the patient. PT OT will continue for the patient. The patient's Lovenox will be continued for VTE prophylaxis. She is currently in a full resuscitative CODE STATUS and this will be honored. She will likely be appropriate to discharge 1 to 2 days. 06/22/2020 The patient still has ascites. I have consulted Dr. Peralta, surgeon, to query about therapeutic paracentesis. The patient says that she is still having uncomfortable burning sensation in her mouth and has been unable to tolerate the Magic mouthwash for her stomatitis. I will keep this on the medication record. Dietary consultation has also been ordered for the patient PT OT will be continued for her. She is currently in a full resuscitative code and she should be likely appropriate for discharge tomorrow after paracentesis. Repeat laboratory studies have been ordered for the morning. 06/23/20 The patient's primary complaint today is stomatitis. I have encouraged the patient to use the Magic mouthwash to help her. She still remains protein and calorie malnourished as related to her hypoalbuminemia. PT OT will continue for the patient. The patient will also have repeat laboratory studies. I did have a long discussion with the patient with regards to long-term health and had discussed DNR/DNI categories. The patient is still unsure and so will remain in full code category. The patient will need to continue with dietary supplements to help her protein. She also has been encouraged to continue with oral intake. The patient also had paracentesis yesterday without incident and had 6 L removed. I had also ordered 50 of albumin to help with her oncotic pressure. 06/24/20 The patient's primary concern today is that of stomatitis. Her mouth is red and inflamed and she has been recommended to use the Magic mouthwash to help with her stomatitis. My concern is that the patient is not maintaining enough oral intake to help with her hypoalbuminemia which is also causing her to have severe pedal edema. The patient has been encouraged to ambulate as necessary. She is to continue with the supplementations. I have recommended that the dietitian work closely with the patient. At this point due to the patient's overall weakness she would be considered appropriate for long-term care facility.
[2020-06-24] MEDS: Metoprolol Succinate 50 MG Tab.ER PO SCH (10:10)
[2020-06-24] MEDS: Nystatin Topical Powder 15 GM Bottle TOP SCH ×3 (10:12→20:36)
[2020-06-24] MEDS: Enoxaparin 30 MG/0.3 ML Syringe SUBCUT SCH (10:12)
[2020-06-24] MEDS: Diphenhydramine/Lidocaine/MagAl/Simethicone 119 ML Bottle PO PRN (19:20)
[2020-06-25] MEDS: Levothyroxine 25 MCG Tab PO SCH (06:15)
[2020-06-25] MEDS: Sodium Chloride 0.9% 1,000 ML IV SCH ×2 (06:17→16:17)
--- NOTE | 2020-06-25 07:30 | PCM.PN ---
- General Info Date of Service: 06/25/20 Admission Dx/Problem (Free Text): Generalized weakness, ascites, ovarian cancer Subjective Update: The patient is a 79-year-old lady who was admitted on June 19, 2020 stage IV ovarian cancer and malignant ascites. The patient has had stomatitis and has had pain in her mouth that is interfering with her eating. The patient has not been able to tolerate diet. She is also feeling very weak. Functional Status: Denies: Pain Controlled, Tolerating Diet - Review of Systems General: Reports: Weakness, Fatigue HEENT: Reports: Other (Stomatitis) Pulmonary: Reports: Shortness of Breath Cardiovascular: Reports: Edema Gastrointestinal: Reports: Abdominal Pain Genitourinary: Reports: No Symptoms Musculoskeletal: Reports: No Symptoms Skin: Reports: No Symptoms Neurological: Reports: No Symptoms Psychiatric: Reports: No Symptoms - Patient Data Vitals - Most Recent: Last Vital Signs Temp 36.6 C 06/25/20 04:06 Pulse 102 H 06/25/20 04:06 Resp 18 06/25/20 04:06 BP 115/90 06/25/20 04:06 Pulse Ox 97 06/25/20 04:06 Weight - Most Recent: 79.878 kg I&O - Last 24 Hours: Intake & Output 06/24/20 06/25/20 06/25/20 22:59 06:59 14:59 Intake Total 300 100 Output Total 300 Balance 300 -200 Lab Results Last 24 Hours: Laboratory Results - last 24 hr 06/25/20 06/25/20 Range/Units 04:31 04:31 WBC 2.50 L (3.98-10.04) K/mm3 RBC 3.93 L (3.98-5.22) M/mm3 Hgb 10.1 L (11.2-15.7) gm/dl Hct 31.6 L (34.1-44.9) % MCV 80.4 (79.4-94.8) fl MCH 25.7 (25.6-32.2) pg MCHC 32.0 L (32.2-35.5) g/dl RDW Std Deviation 53.0 H (36.4-46.3) fL Plt Count 337 (182-369) K/mm3 MPV 9.3 L (9.4-12.3) fl Neut % (Auto) 71.6 H (34.0-71.1) % Lymph % (Auto) 16.4 L (19.3-51.7) % [place] % (Auto) 10.0 (4.7-12.5) % Eos % (Auto) 1.2 (0.7-5.8) Baso % (Auto) 0.4 (0.1-1.2) % Neut # (Auto) 1.79 (1.56-6.13) K/mm3 Lymph # (Auto) 0.41 L (1.18-3.74) K/mm3 [place] # (Auto) 0.25 (0.24-0.36) K/mm3 Eos # (Auto) 0.03 L (0.04-0.36) K/mm3 Baso # (Auto) 0.01 (0.01-0.08) K/mm3 Sodium 137 (136-145) mEq/L Potassium 3.7 (3.5-5.1) mEq/L Chloride 110 H (98-107) mEq/L Carbon Dioxide 15 L (21-32) mEq/L Anion Gap 15.7 H (5-15) BUN 57 H (7-18) mg/dL Creatinine 2.1 H (0.55-1.02) mg/dL Est Cr Clr Drug Dosing 20.19 mL/min Estimated GFR (MDRD) 23 (>60) mL/min BUN/Creatinine Ratio 27.1 H (14-18) Glucose 112 (83-115) mg/dL Calcium 7.7 L (8.5-10.1) mg/dL Total Bilirubin 0.2 (0.2-1.0) mg/dL AST 12 L (15-37) U/L ALT 11 L (14-59) U/L Alkaline Phosphatase 108 (46-116) U/L Total Protein 4.1 L (6.4-8.2) g/dl Albumin 1.1 L (3.4-5.0) g/dl Globulin 3.0 gm/dL Albumin/Globulin Ratio 0.4 L (1-2) Med Orders - Current: Current Medications Acetaminophen (Tylenol) 650 mg PO Q4H PRN PRN Reason: Pain (Mild 1-3)/fever Diphenhydr/Magaldrate/Simeth/Lidoca (First-Mouthwash Blm Susp) 30 ml PO Q4H PRN PRN Reason: Dryness Last Admin: 06/24/20 19:20 Dose: 30 ml Documented by: Enoxaparin Sodium (Lovenox) 30 mg SUBCUT DAILY [facility] Last Admin: 06/24/20 10:12 Dose: 30 mg Documented by: Hydromorphone HCl (Dilaudid) 0.25 mg IVPUSH Q2H PRN PRN Reason: Pain (severe 7-10) Sodium Chloride (Normal Saline) 1,000 mls @ 75 mls/hr IV ASDIRECTED [facility] Last Admin: 06/25/20 06:17 Dose: 75 mls/hr Documented by: Levothyroxine Sodium (Levothyroxine) 25 mcg PO ACBREAKFAST [facility] Last Admin: 06/25/20 06:15 Dose: 25 mcg Documented by: Magnesium Hydroxide (Milk Of Magnesia) 30 ml PO Q12H PRN PRN Reason: Constipation Metoprolol Succinate (Toprol Xl) 100 mg PO DAILY [facility] Last Admin: 06/24/20 10:10 Dose: 100 mg Documented by: Nystatin (Nystatin Oral Syringe) 500,000 unit PO QID [facility] Last Admin: 06/24/20 20:36 Dose: 500,000 unit Documented by: Nystatin (Nystop) 0 gm TOP TID [facility] Last Admin: 06/24/20 20:36 Dose: 1 applic Documented by: Ondansetron HCl (Zofran) 4 mg IV Q4H PRN PRN Reason: Nausea/Vomiting Last Admin: 06/19/20 21:03 Dose: 4 mg Documented by: Oxycodone HCl (Oxycodone) 5 mg PO Q4H PRN PRN Reason: Pain (moderate 4-6) Polyethylene Glycol (Miralax) 17 gm PO DAILY PRN PRN Reason: Constipation Senna/Docusate Sodium (Senna Plus) 1 tab PO BID PRN PRN Reason: Constipation Temazepam (Restoril) 7.5 mg PO BEDTIME PRN PRN Reason: Sleep Discontinued Medications Hydromorphone HCl (Dilaudid) 1 mg IVPUSH Q1H PRN PRN Reason: Pain Sodium Chloride (Normal Saline) 1,000 mls @ 1,000 mls/hr IV ONETIME ONE Stop: 06/19/20 12:40 Last Admin: 06/19/20 13:10 Dose: 1,000 mls/hr Documented by: Dextrose/Sodium Chloride (Dextrose 5%-Normal Saline) 1,000 mls @ 100 mls/hr IV ASDIRECTED [facility] Last Admin: 06/22/20 06:42 Dose: 100 mls/hr Documented by: Dextrose/Sodium Chloride (Dextrose 5%-Normal Saline) Confirm Administered Dose 1,000 mls @ as directed .ROUTE .STK-MED ONE Stop: 06/22/20 05:52 Last Admin: 06/22/20 10:59 Dose: Not Given Documented by: Albumin Human (Flexbumin 25%) 12.5 gm in 50 mls @ 50 mls/hr IV ONETIME ONE Stop: 06/22/20 16:59 Last Admin: 06/22/20 16:28 Dose: 50 mls/hr Documented by: Non-Formulary Medication (Promethazine Gel) 25 mg TOP Q6H PRN PRN Reason: Nausea Ondansetron HCl (Zofran) 4 mg IVPUSH Q6H PRN PRN Reason: Nausea/Vomiting - Exam Quality Assessment: No: Supplemental Oxygen General: Alert, Oriented, Lethargic HEENT: Pupils Equal, Pupils Reactive. No: Mucous Membr. Moist/[place] (Dry, ulcerations present) Neck: Supple, Trachea Midline Lungs: Normal Respiratory Effort, Rales Cardiovascular: Regular Rate, Regular Rhythm GI/Abdominal Exam: Normal Bowel Sounds, Soft, Non-Tender, No Distention (Female) Exam: Deferred Back Exam: Normal Inspection, Full Range of Motion (Age-appropriate) Extremities: Normal Inspection, Pedal Edema Skin: Warm, Dry, Intact Neurological: No New Focal Deficit Psy/Mental Status: Alert, Normal Affect, Depressed Sepsis Event Note - Evaluation Sepsis Screening Result: No Definite Risk - Focused Exam Vital Signs: Vital Signs Temp Pulse Resp BP BP Pulse Ox 06/25/20 04:06 36.6 C 102 H 18 115/90 97 06/24/20 23:15 36.7 C 92 13 98/50 L 96 06/24/20 20:34 36.6 C 102 H 18 93/61 97 - Problem List & Annotations (1) Stomatitis and mucositis, unspecified SNOMED Code(s): 19718245 Code(s): K12.1 - OTHER FORMS OF STOMATITIS; K12.30 - ORAL MUCOSITIS (ULCERATIVE), UNSPECIFIED Status: Acute Priority: High Current Visit: Yes (2) Ascites, malignant SNOMED Code(s): 334822749 Code(s): R18.0 - MALIGNANT ASCITES Status: Chronic Priority: High Current Visit: Yes (3) Vertigo SNOMED Code(s): 791292760 Code(s): R42 - DIZZINESS AND GIDDINESS Status: Acute Priority: High Current Visit: Yes (4) Generalized weakness SNOMED Code(s): 46276432 Code(s): R53.1 - WEAKNESS Status: Chronic Priority: Medium Current Visit: Yes (5) Ovarian cancer SNOMED Code(s): 553566424 Code(s): C56.9 - MALIGNANT NEOPLASM OF UNSPECIFIED OVARY Status: Chronic Priority: Medium Current Visit: Yes Qualifiers: Laterality: unspecified laterality Qualified Code(s): C56.9 - Malignant neoplasm of unspecified ovary (6) Renal insufficiency SNOMED Code(s): 141934493, 928726025 Code(s): N28.9 - DISORDER OF KIDNEY AND URETER, UNSPECIFIED Status: Chronic Priority: High Current Visit: Yes Annotation/Comment:: Stage IV renal failure, EGFR 15 mL/min (7) Protein calorie malnutrition SNOMED Code(s): 784073064 Code(s): E46 - UNSPECIFIED PROTEIN-CALORIE MALNUTRITION Status: Acute Priority: High Current Visit: Yes Qualifiers: Protein-calorie malnutrition severity: moderate Qualified Code(s): E44.0 - Moderate protein-calorie malnutrition - Problem List Review Problem List Initiated/Reviewed/Updated: Yes - My Orders Last 24 Hours: My Active Orders 06/25/20 04:31 CBC WITH AUTO DIFF [HEME] AM - Plan Plan:: 79-year-old female with ovarian cancer presents to the emergency department after being seen at the clinic with increasing weakness following treatment with doxorubicin. Hypovolemic hyponatremia Acute on chronic renal insufficiency Elevated anion gap likely secondary to hypovolemia Hyponatremia secondary to protein calorie malnutrition Anemia Leukocytosis likely stress response Mouth ulcers, possible thrush Otalgia * Given 2 L normal saline, 1 in the clinic and 1 in the emergency department * Progressive weakness of the last 7 days * Unable to care for herself or have level of care for her * Repeat labs showed continued sodium of 129 and a creatinine down to 3.1, estimated GFR 15 * Albumin low at 1.7, corrected calcium 10.1. AST, ALT, alkaline phosphatase, bilirubin normal * WBC 10.55, hemoglobin 10.9 History of hypertension and hypothyroidism Plan * Admit to medical floor for rehydration * Follow renal function closely. * Order physical therapy and Occupational Therapy consults. * Continue home meds * Check TSH in the morning. * Monitor vital signs every 4 hours. * Dietary consult * Nystatin swish and spit 4 times daily * Analgesia for ear pain. Nothing significant found on exam. * VTE prophylaxis with Lovenox adjusted for renal function * Adjust medications based on renal function. * CODE STATUS: Full code * Disposition admit to floor with likely length of stay 2 to 3 days. * 06/20/2020 The patient is a 79-year-old lady who had been admitted predominantly for weakness. Physical therapy has been ordered. The patient will likely need to have therapeutic paracentesis as she does have ovarian cancer. The patient also has had recent chemotherapy and CBC, CMP have been ordered for her. She will continue diet as tolerated. Also I have ordered Magic mouthwash to help with her stomatitis. The patient does have pitting edema consistent with low albumin. This likely represents protein calorie malnutrition will require supplementation. Consult for dietitian has been ordered. 06/21/2020 The patient is a 79-year-old lady who has rather moderate ascites. She will need a paracentesis. Because of the patient's history of ovarian cancer is likely that the ascites is malignant. Paracentesis will be primarily for therapeutic reasons. The patient also has severe hypoalbuminemia which has been a contributing factor to her lower extremity edema. Patient says that she has not used any of the Magic mouthwash for her stomatitis. Dietary consultation has been ordered for the patient. PT OT will continue for the patient. The patient's Lovenox will be continued for VTE prophylaxis. She is currently in a full resuscitative CODE STATUS and this will be honored. She will likely be appropriate to discharge 1 to 2 days. 06/22/2020 The patient still has ascites. I have consulted Dr. Peralta, surgeon, to query about therapeutic paracentesis. The patient says that she is still having uncomfortable burning sensation in her mouth and has been unable to tolerate the Magic mouthwash for her stomatitis. I will keep this on the medication record. Dietary consultation has also been ordered for the patient PT OT will be continued for her. She is currently in a full resuscitative code and she should be likely appropriate for discharge tomorrow after paracentesis. Repeat laboratory studies have been ordered for the morning. 06/23/20 The patient's primary complaint today is stomatitis. I have encouraged the patient to use the Magic mouthwash to help her. She still remains protein and calorie malnourished as related to her hypoalbuminemia. PT OT will continue for the patient. The patient will also have repeat laboratory studies. I did have a long discussion with the patient with regards to long-term health and had discussed DNR/DNI categories. The patient is still unsure and so will remain in full code category. The patient will need to continue with dietary supplements to help her protein. She also has been encouraged to continue with oral intake. The patient also had paracentesis yesterday without incident and had 6 L removed. I had also ordered 50 of albumin to help with her oncotic pressure. 06/24/20 The patient's primary concern today is that of stomatitis. Her mouth is red and inflamed and she has been recommended to use the Magic mouthwash to help with her stomatitis. My concern is that the patient is not maintaining enough oral intake to help with her hypoalbuminemia which is also causing her to have severe pedal edema. The patient has been encouraged to ambulate as necessary. She is to continue with the supplementations. I have recommended that the dietitian work closely with the patient. At this point due to the patient's overall weakness she would be considered appropriate for long-term care facility. 06/25/2020 The patient is still having difficulty with her stomatitis. She has not been using the Magic mouthwash. I recommended that the patient try to use this to help some of the pain. Also discussed feeding tube with the patient in order to receive some kind of nutritional/protein supplementation. The patient rejects the idea of a NG tube for feeding. She is asking about her Chemo-Port being used for TPN. The patient has been encouraged to ambulate. She will be kept on her current medications. The patient's white blood cell count has also dropped today and this will be monitored very closely for signs of neutropenic fever. Thus far the patient has been afebrile. The patient's albumin has also dropped to 1.1 g/dL. TPN will be ordered for the patient with protein will discuss and consult with a dietitian.
[2020-06-25] MEDS: Metoprolol Succinate 50 MG Tab.ER PO SCH (08:25)
[2020-06-25] MEDS: Enoxaparin 30 MG/0.3 ML Syringe SUBCUT SCH (08:26)
[2020-06-25] MEDS: Nystatin Topical Powder 15 GM Bottle TOP SCH ×3 (08:28→21:29)
[2020-06-25] MEDS: Nystatin Susp 100,000 Unit/ML 5 ML Oral Syringe PO SCH ×3 (08:30→21:28)
[2020-06-25] MEDS ORDERED: [UNRECOGNIZED DRUG - REMARK] SCH (15:00)
[2020-06-25] MEDS ORDERED: CHROMIUM IV SCH ×3 (16:00)
[2020-06-25] MEDS ORDERED: [UNRECOGNIZED DRUG - OTHER] IV SCH ×3 (16:00)
[2020-06-25] MEDS ORDERED: VITAMIN K IV SCH ×3 (16:00)
[2020-06-25] MEDS ORDERED: MANG IV SCH ×3 (16:00)
[2020-06-25] MEDS ORDERED: MVI IV SCH ×3 (16:00)
[2020-06-25] MEDS ORDERED: ZINC IV SCH ×3 (16:00)
[2020-06-25] MEDS ORDERED: COPPER IV SCH ×3 (16:00)
[2020-06-25] MEDS: Diphenhydramine/Lidocaine/MagAl/Simethicone 119 ML Bottle PO PRN (21:28)
[2020-06-26] MEDS: Levothyroxine 25 MCG Tab PO SCH (06:35)
[2020-06-26] MEDS ORDERED: Magnesium Sulfate/Water 4 GM in Premix Bag 1 BAG IV ONE (07:30)
--- NOTE | 2020-06-26 08:08 | PCM.PN ---
- General Info Date of Service: 06/26/20 Admission Dx/Problem (Free Text): Generalized weakness, ascites, ovarian cancer Subjective Update: The patient is a 79-year-old lady who was admitted to acute hospitalization due to ascites. She has stage IV ovarian cancer. The patient's primary concern at this point has been her mouth pain. The patient had been set up with TPN nutritional support yesterday and she has been tolerating this. The patient says that she is still feeling weak and fatigued. She has not been up out of bed. She still having pain in her mouth from ulcerations. Functional Status: Reports: Pain Controlled. Denies: Tolerating Diet - Review of Systems General: Reports: Weakness, Fatigue HEENT: Reports: Other (Stomatitis) Pulmonary: Reports: Shortness of Breath Cardiovascular: Reports: No Symptoms Gastrointestinal: Reports: No Symptoms Genitourinary: Reports: No Symptoms Musculoskeletal: Reports: No Symptoms Skin: Reports: No Symptoms Neurological: Reports: No Symptoms Psychiatric: Reports: Depression - Patient Data Vitals - Most Recent: Last Vital Signs Temp 36.7 C 06/26/20 06:39 Pulse 110 H 06/26/20 06:39 Resp 20 06/26/20 06:39 BP 130/67 06/26/20 06:39 Pulse Ox 95 06/26/20 06:39 Weight - Most Recent: 81.012 kg I&O - Last 24 Hours: Intake & Output 06/25/20 06/26/20 06/26/20 22:59 06:59 14:59 Intake Total 1110 1760 Output Total 50 250 Balance 1060 1510 Lab Results Last 24 Hours: Laboratory Results - last 24 hr 06/26/20 06/26/20 06/26/20 Range/Units 04:12 04:12 06:36 WBC 2.19 L* (3.98-10.04) K/mm3 RBC 3.54 L (3.98-5.22) M/mm3 Hgb 9.0 L (11.2-15.7) gm/dl Hct 28.7 L (34.1-44.9) % MCV 81.1 (79.4-94.8) fl MCH 25.4 L (25.6-32.2) pg MCHC 31.4 L (32.2-35.5) g/dl RDW Std Deviation 54.2 H (36.4-46.3) fL Plt Count 301 (182-369) K/mm3 MPV 9.2 L (9.4-12.3) fl Neut % (Auto) 71.2 H (34.0-71.1) % Lymph % (Auto) 13.7 L (19.3-51.7) % Early % (Auto) 12.3 (4.7-12.5) % Eos % (Auto) 2.3 (0.7-5.8) Baso % (Auto) 0.0 L (0.1-1.2) % Neut # (Auto) 1.56 (1.56-6.13) K/mm3 Lymph # (Auto) 0.30 L (1.18-3.74) K/mm3 Early # (Auto) 0.27 (0.24-0.36) K/mm3 Eos # (Auto) 0.05 (0.04-0.36) K/mm3 Baso # (Auto) 0.00 L (0.01-0.08) K/mm3 Manual Slide Review Abnormal smear Sodium 138 (136-145) mEq/L Potassium 3.7 (3.5-5.1) mEq/L Chloride 110 H (98-107) mEq/L Carbon Dioxide 16 L (21-32) mEq/L Anion Gap 15.7 H (5-15) BUN 61 H (7-18) mg/dL Creatinine 2.1 H (0.55-1.02) mg/dL Est Cr Clr Drug Dosing 20.19 mL/min Estimated GFR (MDRD) 23 (>60) mL/min BUN/Creatinine Ratio 29.0 H (14-18) Glucose 195 H (83-115) mg/dL POC Glucose 205 H (83-110) mg/dL Calcium 7.5 L (8.5-10.1) mg/dL Phosphorus 3.1 (2.6-4.7) mg/dL Magnesium 1.4 L (1.8-2.4) mg/dl Med Orders - Current: Current Medications Acetaminophen (Tylenol) 650 mg PO Q4H PRN PRN Reason: Pain (Mild 1-3)/fever Diphenhydr/Magaldrate/Simeth/Lidoca (First-Mouthwash Blm Susp) 30 ml PO Q4H PRN PRN Reason: Dryness Last Admin: 06/25/20 21:28 Dose: 30 ml Documented by: Enoxaparin Sodium (Lovenox) 30 mg SUBCUT DAILY [facility] Last Admin: 06/25/20 08:26 Dose: 30 mg Documented by: Hydromorphone HCl (Dilaudid) 0.25 mg IVPUSH Q2H PRN PRN Reason: Pain (severe 7-10) Tpn Placeholder 1,000 mls @ 40 mls/hr .XX ASDIRECTED [facility] Multivitamins/Minerals 10 ml/Chromium/Copper/Manganese/Zinc 1 ml/ Amino Ac/Electrol/Dextrose/Calcium 1,011 mls @ 40 mls/hr IV TITRATE CASSIA Stop: 06/26/20 15:59 Last Infusion: 06/26/20 04:57 Dose: 80 mls/hr Documented by: Amino Ac/Electrol/Dextrose/Calcium (Clinimix E 01/21) 1,000 mls @ 80 mls/hr IV TITRATE CASSIA Sodium Chloride (Normal Saline) 1,000 mls @ 20 mls/hr IV ASDIRECTED [facility] Last Admin: 06/25/20 16:17 Dose: 20 mls/hr Documented by: Magnesium Sulfate 4 gm/ Premix 50 mls @ 12.5 mls/hr IV ONETIME ONE Stop: 06/26/20 11:29 Insulin Human Lispro (Humalog) 0 unit SUBCUT QIDACANDBED [facility]; Protocol Levothyroxine Sodium (Levothyroxine) 25 mcg PO ACBREAKFAST [facility] Last Admin: 06/26/20 06:35 Dose: 25 mcg Documented by: Magnesium Hydroxide (Milk Of Magnesia) 30 ml PO Q12H PRN PRN Reason: Constipation Metoprolol Succinate (Toprol Xl) 100 mg PO DAILY [facility] Last Admin: 06/25/20 08:25 Dose: Not Given Documented by: Nystatin (Nystatin Oral Syringe) 500,000 unit PO QID [facility] Last Admin: 06/25/20 21:28 Dose: Not Given Documented by: Nystatin (Nystop) 0 gm TOP TID [facility] Last Admin: 06/25/20 21:29 Dose: Not Given Documented by: Ondansetron HCl (Zofran) 4 mg IV Q4H PRN PRN Reason: Nausea/Vomiting Last Admin: 06/19/20 21:03 Dose: 4 mg Documented by: Oxycodone HCl (Oxycodone) 5 mg PO Q4H PRN PRN Reason: Pain (moderate 4-6) Polyethylene Glycol (Miralax) 17 gm PO DAILY PRN PRN Reason: Constipation Senna/Docusate Sodium (Senna Plus) 1 tab PO BID PRN PRN Reason: Constipation Temazepam (Restoril) 7.5 mg PO BEDTIME PRN PRN Reason: Sleep Discontinued Medications Hydromorphone HCl (Dilaudid) 1 mg IVPUSH Q1H PRN PRN Reason: Pain Sodium Chloride (Normal Saline) 1,000 mls @ 1,000 mls/hr IV ONETIME ONE Stop: 06/19/20 12:40 Last Admin: 06/19/20 13:10 Dose: 1,000 mls/hr Documented by: Dextrose/Sodium Chloride (Dextrose 5%-Normal Saline) 1,000 mls @ 100 mls/hr IV ASDIRECTED [facility] Last Admin: 06/22/20 06:42 Dose: 100 mls/hr Documented by: Dextrose/Sodium Chloride (Dextrose 5%-Normal Saline) Confirm Administered Dose 1,000 mls @ as directed .ROUTE .STK-MED ONE Stop: 06/22/20 05:52 Last Admin: 06/22/20 10:59 Dose: Not Given Documented by: Albumin Human (Flexbumin 25%) 12.5 gm in 50 mls @ 50 mls/hr IV ONETIME ONE Stop: 06/22/20 16:59 Last Admin: 06/22/20 16:28 Dose: 50 mls/hr Documented by: Sodium Chloride (Normal Saline) 1,000 mls @ 75 mls/hr IV ASDIRECTED [facility] Stop: 06/25/20 17:00 Last Admin: 06/25/20 06:17 Dose: 75 mls/hr Documented by: Non-Formulary Medication (Promethazine Gel) 25 mg TOP Q6H PRN PRN Reason: Nausea Ondansetron HCl (Zofran) 4 mg IVPUSH Q6H PRN PRN Reason: Nausea/Vomiting - Exam Quality Assessment: Supplemental Oxygen General: Alert, Oriented, Other (Appears chronically ill) HEENT: Pupils Equal, Pupils Reactive. No: Mucous Membr. Moist/[place] (Ulcerations, dry) Neck: Supple, Trachea Midline Lungs: Clear to Auscultation, Normal Respiratory Effort, Other (TPN through chemotherapy port) Cardiovascular: Regular Rate, Regular Rhythm GI/Abdominal Exam: Normal Bowel Sounds, Soft, Non-Tender, No Distention (Female) Exam: Deferred Back Exam: Normal Inspection Extremities: Normal Inspection, No Pedal Edema Skin: Warm, Dry, Intact Neurological: No New Focal Deficit Psy/Mental Status: Alert, Normal Affect, Depressed Sepsis Event Note - Evaluation Sepsis Screening Result: No Definite Risk - Focused Exam Vital Signs: Vital Signs Temp Temp Pulse Resp BP Pulse Ox 06/26/20 06:39 36.7 C 110 H 20 130/67 95 06/26/20 01:29 106 H 20 118/63 96 06/26/20 01:00 36.4 C - Problem List & Annotations (1) Stomatitis and mucositis, unspecified SNOMED Code(s): 09773006 Code(s): K12.1 - OTHER FORMS OF STOMATITIS; K12.30 - ORAL MUCOSITIS (ULCERATIVE), UNSPECIFIED Status: Acute Priority: High Current Visit: Yes (2) Ascites, malignant SNOMED Code(s): 707648593 Code(s): R18.0 - MALIGNANT ASCITES Status: Chronic Priority: High Current Visit: Yes (3) Vertigo SNOMED Code(s): 782808493 Code(s): R42 - DIZZINESS AND GIDDINESS Status: Acute Priority: High Current Visit: Yes (4) Generalized weakness SNOMED Code(s): 40999064 Code(s): R53.1 - WEAKNESS Status: Chronic Priority: Medium Current Visit: Yes (5) Ovarian cancer SNOMED Code(s): 336156530 Code(s): C56.9 - MALIGNANT NEOPLASM OF UNSPECIFIED OVARY Status: Chronic Priority: Medium Current Visit: Yes Qualifiers: Laterality: unspecified laterality Qualified Code(s): C56.9 - Malignant neoplasm of unspecified ovary (6) Renal insufficiency SNOMED Code(s): 627661012, 628544799 Code(s): N28.9 - DISORDER OF KIDNEY AND URETER, UNSPECIFIED Status: Chronic Priority: High Current Visit: Yes Annotation/Comment:: Stage IV renal failure, EGFR 15 mL/min (7) Protein calorie malnutrition SNOMED Code(s): 167603947 Code(s): E46 - UNSPECIFIED PROTEIN-CALORIE MALNUTRITION Status: Acute Priority: High Current Visit: Yes Qualifiers: Protein-calorie malnutrition severity: moderate Qualified Code(s): E44.0 - Moderate protein-calorie malnutrition - Problem List Review Problem List Initiated/Reviewed/Updated: Yes - My Orders Last 24 Hours: My Active Orders 06/25/20 15:00 Non-Formulary Medication [NF Drug] 1 each .XX ASDIRECTED 06/25/20 16:00 MVI, Adult with Vitamin K [Infuvite Adult] 10 ml Chromium/Copper/Zander/Zinc [Multitrace-4 Concentrate] 1 ml AA 5%/Calcium/D20W/Lytes [Clinimix E 01/21] 1,000 ml IV TITRATE 06/25/20 17:00 Sodium Chloride 0.9% [Normal Saline] 1,000 ml IV ASDIRECTED 06/26/20 06:00 AA 5%/Calcium/D20W/Lytes [Clinimix E 01/21] 1,000 ml IV TITRATE 06/26/20 07:00 Blood Glucose Check, Bedside [RC] QIDACANDBED Insulin Lispro [HumaLOG] See Protocol SUBCUT QIDACANDBED 06/26/20 07:30 Magnesium Sulfate/Water [Magnesium Sulfate in Water Premix] 4 gm Premix Bag 1 bag IV ONETIME 06/27/20 05:11 BASIC METABOLIC PANEL,BMP [CHEM] AM MAGNESIUM [CHEM] AM PHOSPHORUS [CHEM] AM 06/28/20 05:11 BASIC METABOLIC PANEL,BMP [CHEM] AM MAGNESIUM [CHEM] AM PHOSPHORUS [CHEM] AM 06/29/20 05:11 BASIC METABOLIC PANEL,BMP [CHEM] AM MAGNESIUM [CHEM] AM PHOSPHORUS [CHEM] AM 06/30/20 05:11 BASIC METABOLIC PANEL,BMP [CHEM] AM MAGNESIUM [CHEM] AM PHOSPHORUS [CHEM] AM - Plan Plan:: 79-year-old female with ovarian cancer presents to the emergency department after being seen at the clinic with increasing weakness following treatment with doxorubicin. Hypovolemic hyponatremia Acute on chronic renal insufficiency Elevated anion gap likely secondary to hypovolemia Hyponatremia secondary to protein calorie malnutrition Anemia Leukocytosis likely stress response Mouth ulcers, possible thrush Otalgia * Given 2 L normal saline, 1 in the clinic and 1 in the emergency department * Progressive weakness of the last 7 days * Unable to care for herself or have level of care for her * Repeat labs showed continued sodium of 129 and a creatinine down to 3.1, estimated GFR 15 * Albumin low at 1.7, corrected calcium 10.1. AST, ALT, alkaline phosphatase, bilirubin normal * WBC 10.55, hemoglobin 10.9 History of hypertension and hypothyroidism Plan * Admit to medical floor for rehydration * Follow renal function closely. * Order physical therapy and Occupational Therapy consults. * Continue home meds * Check TSH in the morning. * Monitor vital signs every 4 hours. * Dietary consult * Nystatin swish and spit 4 times daily * Analgesia for ear pain. Nothing significant found on exam. * VTE prophylaxis with Lovenox adjusted for renal function * Adjust medications based on renal function. * CODE STATUS: Full code * Disposition admit to floor with likely length of stay 2 to 3 days. * 06/20/2020 The patient is a 79-year-old lady who had been admitted predominantly for weakness. Physical therapy has been ordered. The patient will likely need to have therapeutic paracentesis as she does have ovarian cancer. The patient also has had recent chemotherapy and CBC, CMP have been ordered for her. She will continue diet as tolerated. Also I have ordered Magic mouthwash to help with her stomatitis. The patient does have pitting edema consistent with low albumin. This likely represents protein calorie malnutrition will require supplementation. Consult for dietitian has been ordered. 06/21/2020 The patient is a 79-year-old lady who has rather moderate ascites. She will need a paracentesis. Because of the patient's history of ovarian cancer is likely that the ascites is malignant. Paracentesis will be primarily for therapeutic reasons. The patient also has severe hypoalbuminemia which has been a contributing factor to her lower extremity edema. Patient says that she has not used any of the Magic mouthwash for her stomatitis. Dietary consultation has been ordered for the patient. PT OT will continue for the patient. The patient's Lovenox will be continued for VTE prophylaxis. She is currently in a full resuscitative CODE STATUS and this will be honored. She will likely be appropriate to discharge 1 to 2 days. 06/22/2020 The patient still has ascites. I have consulted Dr. Peralta, surgeon, to query about therapeutic paracentesis. The patient says that she is still having uncomfortable burning sensation in her mouth and has been unable to tolerate the Magic mouthwash for her stomatitis. I will keep this on the medication record. Dietary consultation has also been ordered for the patient PT OT will be continued for her. She is currently in a full resuscitative code and she should be likely appropriate for discharge tomorrow after paracentesis. Repeat laboratory studies have been ordered for the morning. 06/23/20 The patient's primary complaint today is stomatitis. I have encouraged the patient to use the Magic mouthwash to help her. She still remains protein and calorie malnourished as related to her hypoalbuminemia. PT OT will continue for the patient. The patient will also have repeat laboratory studies. I did have a long discussion with the patient with regards to long-term health and had discussed DNR/DNI categories. The patient is still unsure and so will remain in full code category. The patient will need to continue with dietary supplements to help her protein. She also has been encouraged to continue with oral intake. The patient also had paracentesis yesterday without incident and had 6 L removed. I had also ordered 50 of albumin to help with her oncotic pressure. 06/24/20 The patient's primary concern today is that of stomatitis. Her mouth is red and inflamed and she has been recommended to use the Magic mouthwash to help with her stomatitis. My concern is that the patient is not maintaining enough oral intake to help with her hypoalbuminemia which is also causing her to have severe pedal edema. The patient has been encouraged to ambulate as necessary. She is to continue with the supplementations. I have recommended that the dietitian work closely with the patient. At this point due to the patient's overall weakness she would be considered appropriate for long-term care facility. 06/25/2020 The patient is still having difficulty with her stomatitis. She has not been using the Magic mouthwash. I recommended that the patient try to use this to help some of the pain. Also discussed feeding tube with the patient in order to receive some kind of nutritional/protein supplementation. The patient rejects the idea of a NG tube for feeding. She is asking about her Chemo-Port being used for TPN. The patient has been encouraged to ambulate. She will be kept on her current medications. The patient's white blood cell count has also dropped today and this will be monitored very closely for signs of neutropenic fever. Thus far the patient has been afebrile. The patient's albumin has also dropped to 1.1 g/dL. TPN will be ordered for the patient with protein will discuss and consult with a dietitian. 06/26/2020 The patient today is still having difficulty with her stomatitis. The patient has also been encouraged to use sponge sticks with Magic mouthwash to help with her stomatitis. I have ordered oral care to help with patient. Patient has been tolerating TPN. The patient has been encouraged to ambulate. Patient also has been recommended to continue sitting in chair more often. The patient's white blood cell count has declined to 2.19 thousand. Repeat laboratory studies have been ordered to continue to monitor this. Also the patient's magnesium is low and this will be replaced with 2 g of IV magnesium. Patient may require placement.
[2020-06-26] MEDS ORDERED: [UNRECOGNIZED DRUG - REMARK] PRN (08:39)
[2020-06-26] MEDS: Nystatin Topical Powder 15 GM Bottle TOP SCH ×3 (08:46→21:58)
[2020-06-26] MEDS: Insulin Lispro 100 Units/ML 3 ML Vial SUBCUT SCH ×3 (08:46→17:26)
[2020-06-26] MEDS: Nystatin Susp 100,000 Unit/ML 5 ML Oral Syringe PO SCH ×4 (08:46→21:58)
[2020-06-26] MEDS: Enoxaparin 30 MG/0.3 ML Syringe SUBCUT SCH (08:49)
[2020-06-26] MEDS: Metoprolol Succinate 50 MG Tab.ER PO SCH (08:49)
[2020-06-26] MEDS: AA 5%/Calcium/D20W/Lytes 1,000 ML IV SCH ×2 (08:58→21:40)
[2020-06-26] MEDS: Fat Emulsion 500 ML IV SCH (13:32)
[2020-06-26] MEDS: Sodium Chloride 0.9% 1,000 ML IV SCH (18:31)
[2020-06-26] MEDS: Diphenhydramine/Lidocaine/MagAl/Simethicone 119 ML Bottle PO PRN (18:37)
[2020-06-26] MEDS: HYDROmorphone 0.5 MG/0.5 ML Syringe IVPUSH PRN (20:26)
[2020-06-26] MEDS: Ondansetron 4 MG/2 ML SDV IV PRN (20:27)
[2020-06-27] MEDS: Insulin Lispro 100 Units/ML 3 ML Vial SUBCUT SCH ×5 (00:54→18:24)
[2020-06-27] MEDS: Levothyroxine 25 MCG Tab PO SCH (06:48)
[2020-06-27] MEDS: Metoprolol Succinate 50 MG Tab.ER PO SCH (09:07)
[2020-06-27] MEDS: Enoxaparin 30 MG/0.3 ML Syringe SUBCUT SCH (09:09)
[2020-06-27] MEDS: Nystatin Susp 100,000 Unit/ML 5 ML Oral Syringe PO SCH ×4 (09:09→20:47)
[2020-06-27] MEDS: Nystatin Topical Powder 15 GM Bottle TOP SCH ×3 (09:10→20:57)
[2020-06-27] MEDS ORDERED: VITAMIN K IV SCH ×3 (10:00)
[2020-06-27] MEDS ORDERED: MANG IV SCH ×3 (10:00)
[2020-06-27] MEDS ORDERED: COPPER IV SCH ×3 (10:00)
[2020-06-27] MEDS ORDERED: [UNRECOGNIZED DRUG - OTHER] IV SCH ×3 (10:00)
[2020-06-27] MEDS ORDERED: MVI IV SCH ×3 (10:00)
[2020-06-27] MEDS ORDERED: ZINC IV SCH ×3 (10:00)
[2020-06-27] MEDS ORDERED: CHROMIUM IV SCH ×3 (10:00)
--- NOTE | 2020-06-27 11:04 | PCM.PN ---
- General Info Date of Service: 06/27/20 Admission Dx/Problem (Free Text): Generalized weakness, ascites, ovarian cancer Subjective Update: The patient is a 79-year-old lady who has been in hospitalization since June 19, 2020 due to stage IV ovarian cancer and ascites. The patient says that her mouth ulcers feels somewhat better. The patient also has been started on TPN. The patient has denied any new pain. The patient says that she has been eating more. Functional Status: Reports: Pain Controlled. Denies: Tolerating Diet - Review of Systems General: Reports: Weakness, Fatigue HEENT: Reports: Other (Mouth sores) Pulmonary: Reports: No Symptoms Cardiovascular: Reports: No Symptoms Gastrointestinal: Reports: Abdominal Pain Genitourinary: Reports: No Symptoms Musculoskeletal: Reports: No Symptoms Skin: Reports: No Symptoms Neurological: Reports: No Symptoms Psychiatric: Reports: No Symptoms - Patient Data Vitals - Most Recent: Last Vital Signs Temp 37.3 C 06/27/20 08:54 Pulse 108 H 06/27/20 09:07 Resp 16 06/27/20 08:54 BP 116/68 06/27/20 09:07 Pulse Ox 97 06/27/20 07:22 Weight - Most Recent: 81.238 kg I&O - Last 24 Hours: Intake & Output 06/26/20 06/27/20 06/27/20 22:59 06:59 14:59 Intake Total 1472 2489 Output Total 400 Balance 1072 2489 Lab Results Last 24 Hours: Laboratory Results - last 24 hr 06/26/20 06/26/20 06/27/20 Range/Units 10:58 17:25 00:53 Sodium (136-145) mEq/L Potassium (3.5-5.1) mEq/L Chloride (98-107) mEq/L Carbon Dioxide (21-32) mEq/L Anion Gap (5-15) BUN (7-18) mg/dL Creatinine (0.55-1.02) mg/dL Est Cr Clr Drug Dosing mL/min Estimated GFR (MDRD) (>60) mL/min BUN/Creatinine Ratio (14-18) Glucose (83-115) mg/dL POC Glucose 264 H 221 H 230 H (83-110) mg/dL Calcium (8.5-10.1) mg/dL Phosphorus (2.6-4.7) mg/dL Magnesium (1.8-2.4) mg/dl 06/27/20 06/27/20 Range/Units 06:12 06:44 Sodium 136 (136-145) mEq/L Potassium 3.5 (3.5-5.1) mEq/L Chloride 109 H (98-107) mEq/L Carbon Dioxide 15 L (21-32) mEq/L Anion Gap 15.5 H (5-15) BUN 65 H (7-18) mg/dL Creatinine 1.8 H (0.55-1.02) mg/dL Est Cr Clr Drug Dosing 23.55 mL/min Estimated GFR (MDRD) 27 (>60) mL/min BUN/Creatinine Ratio 36.1 H (14-18) Glucose 186 H (83-115) mg/dL POC Glucose 227 H (83-110) mg/dL Calcium 7.5 L (8.5-10.1) mg/dL Phosphorus 2.8 (2.6-4.7) mg/dL Magnesium 2.3 (1.8-2.4) mg/dl Med Orders - Current: Current Medications Acetaminophen (Tylenol) 650 mg PO Q4H PRN PRN Reason: Pain (Mild 1-3)/fever Diphenhydr/Magaldrate/Simeth/Lidoca (First-Mouthwash Blm Susp) 30 ml PO Q4H PRN PRN Reason: Dryness Last Admin: 06/26/20 18:37 Dose: 30 ml Documented by: Enoxaparin Sodium (Lovenox) 30 mg SUBCUT DAILY [facility] Last Admin: 06/27/20 09:09 Dose: 30 mg Documented by: Hydromorphone HCl (Dilaudid) 0.25 mg IVPUSH Q2H PRN PRN Reason: Pain (severe 7-10) Last Admin: 06/26/20 20:26 Dose: 0.25 mg Documented by: Amino Ac/Electrol/Dextrose/Calcium (Clinimix E 01/21) 1,000 mls @ 80 mls/hr IV TITRATE [facility] Last Admin: 06/26/20 21:40 Dose: 80 mls/hr Documented by: Sodium Chloride (Normal Saline) 1,000 mls @ 20 mls/hr IV ASDIRECTED [facility] Last Admin: 06/26/20 18:31 Dose: 20 mls/hr Documented by: Fat Emulsion Intravenous (Intralipid 20%) 500 mls @ 62.5 mls/hr IV MoWeFr [facility] Last Admin: 06/26/20 13:32 Dose: 62.5 mls/hr Documented by: Multivitamins/Minerals 10 ml/Chromium/Copper/Manganese/Zinc 1 ml/ Amino Ac/Electrol/Dextrose/Calcium 1,011 mls @ 80 mls/hr IV TITRATE [facility] Stop: 06/27/20 22:39 Insulin Human Lispro (Humalog) 0 unit SUBCUT Q6HR [facility]; Protocol Last Admin: 06/27/20 06:47 Dose: 2 units Documented by: Levothyroxine Sodium (Levothyroxine) 25 mcg PO ACBREAKFAST [facility] Last Admin: 06/27/20 06:48 Dose: 25 mcg Documented by: Magnesium Hydroxide (Milk Of Magnesia) 30 ml PO Q12H PRN PRN Reason: Constipation Metoprolol Succinate (Toprol Xl) 100 mg PO DAILY [facility] Last Admin: 06/27/20 09:07 Dose: 100 mg Documented by: Nystatin (Nystatin Oral Syringe) 500,000 unit PO QID [facility] Last Admin: 06/27/20 09:09 Dose: Not Given Documented by: Nystatin (Nystop) 0 gm TOP TID [facility] Last Admin: 06/27/20 09:10 Dose: 1 applic Documented by: Ondansetron HCl (Zofran) 4 mg IV Q4H PRN PRN Reason: Nausea/Vomiting Last Admin: 06/26/20 20:27 Dose: 4 mg Documented by: Oxycodone HCl (Oxycodone) 5 mg PO Q4H PRN PRN Reason: Pain (moderate 4-6) Pharmacy Consult (Consult To Pharmacy) 1 each .XX DAILY PRN PRN Reason: RX TO MANAGE ELECTROLYTE Polyethylene Glycol (Miralax) 17 gm PO DAILY PRN PRN Reason: Constipation Senna/Docusate Sodium (Senna Plus) 1 tab PO BID PRN PRN Reason: Constipation Temazepam (Restoril) 7.5 mg PO BEDTIME PRN PRN Reason: Sleep Discontinued Medications Hydromorphone HCl (Dilaudid) 1 mg IVPUSH Q1H PRN PRN Reason: Pain Sodium Chloride (Normal Saline) 1,000 mls @ 1,000 mls/hr IV ONETIME ONE Stop: 06/19/20 12:40 Last Admin: 06/19/20 13:10 Dose: 1,000 mls/hr Documented by: Dextrose/Sodium Chloride (Dextrose 5%-Normal Saline) 1,000 mls @ 100 mls/hr IV ASDIRECTED [facility] Last Admin: 06/22/20 06:42 Dose: 100 mls/hr Documented by: Dextrose/Sodium Chloride (Dextrose 5%-Normal Saline) Confirm Administered Dose 1,000 mls @ as directed .ROUTE .STK-MED ONE Stop: 06/22/20 05:52 Last Admin: 06/22/20 10:59 Dose: Not Given Documented by: Albumin Human (Flexbumin 25%) 12.5 gm in 50 mls @ 50 mls/hr IV ONETIME ONE Stop: 06/22/20 16:59 Last Admin: 06/22/20 16:28 Dose: 50 mls/hr Documented by: Sodium Chloride (Normal Saline) 1,000 mls @ 75 mls/hr IV ASDIRECTED [facility] Stop: 06/25/20 17:00 Last Admin: 06/25/20 06:17 Dose: 75 mls/hr Documented by: Tpn Placeholder 1,000 mls @ 40 mls/hr .XX ASDIRECTED [facility] Multivitamins/Minerals 10 ml/Chromium/Copper/Manganese/Zinc 1 ml/ Amino Ac/Electrol/Dextrose/Calcium 1,011 mls @ 40 mls/hr IV TITRATE [facility] Stop: 06/26/20 15:59 Last Infusion: 06/26/20 04:57 Dose: 80 mls/hr Documented by: Magnesium Sulfate 4 gm/ Premix 50 mls @ 12.5 mls/hr IV ONETIME ONE Stop: 06/26/20 11:29 Last Admin: 06/26/20 08:41 Dose: 12.5 mls/hr Documented by: Insulin Human Lispro (Humalog) 0 unit SUBCUT QIDACANDBED [facility]; Protocol Last Admin: 06/27/20 00:54 Dose: Not Given Documented by: Non-Formulary Medication (Promethazine Gel) 25 mg TOP Q6H PRN PRN Reason: Nausea Ondansetron HCl (Zofran) 4 mg IVPUSH Q6H PRN PRN Reason: Nausea/Vomiting - Exam Quality Assessment: DVT Prophylaxis. No: Supplemental Oxygen General: Alert, Oriented, Mild Distress HEENT: Pupils Equal, Pupils Reactive, Other (Oral cavity inflamed with ulcers.) Neck: Supple, Trachea Midline Lungs: Clear to Auscultation, Normal Respiratory Effort Cardiovascular: Regular Rate, Regular Rhythm GI/Abdominal Exam: Normal Bowel Sounds, Soft, No Distention (Female) Exam: Deferred Back Exam: Normal Inspection. No: Full Range of Motion (Age-appropriate) Extremities: Normal Inspection, Pedal Edema Skin: Warm, Dry, Intact Neurological: No New Focal Deficit Psy/Mental Status: Alert, Normal Affect Sepsis Event Note - Evaluation Sepsis Screening Result: No Definite Risk - Focused Exam Vital Signs: Vital Signs Temp Pulse Resp BP Pulse Ox 06/27/20 09:07 108 H 116/68 06/27/20 08:54 37.3 C 16 06/27/20 07:22 108 H 116/68 97 06/27/20 03:57 36.8 C 93 15 109/57 L 93 L - Problem List & Annotations (1) Stomatitis and mucositis, unspecified SNOMED Code(s): 35505661 Code(s): K12.1 - OTHER FORMS OF STOMATITIS; K12.30 - ORAL MUCOSITIS (ULCERATIVE), UNSPECIFIED Status: Acute Priority: High Current Visit: Yes (2) Ascites, malignant SNOMED Code(s): 451854560 Code(s): R18.0 - MALIGNANT ASCITES Status: Chronic Priority: High Current Visit: Yes (3) Vertigo SNOMED Code(s): 269838601 Code(s): R42 - DIZZINESS AND GIDDINESS Status: Acute Priority: High Cur rent Visit: Yes (4) Generalized weakness SNOMED Code(s): 00035541 Code(s): R53.1 - WEAKNESS Status: Chronic Priority: Medium Current Visit: Yes (5) Ovarian cancer SNOMED Code(s): 392283681 Code(s): C56.9 - MALIGNANT NEOPLASM OF UNSPECIFIED OVARY Status: Chronic Priority: Medium Current Visit: Yes Qualifiers: Laterality: unspecified laterality Qualified Code(s): C56.9 - Malignant neoplasm of unspecified ovary (6) Renal insufficiency SNOMED Code(s): 634330533, 977264617 Code(s): N28.9 - DISORDER OF KIDNEY AND URETER, UNSPECIFIED Status: Chronic Priority: High Current Visit: Yes Annotation/Comment:: Stage IV renal failure, EGFR 15 mL/min (7) Protein calorie malnutrition SNOMED Code(s): 984812210 Code(s): E46 - UNSPECIFIED PROTEIN-CALORIE MALNUTRITION Status: Acute Priority: High Current Visit: Yes Qualifiers: Protein-calorie malnutrition severity: moderate Qualified Code(s): E44.0 - Moderate protein-calorie malnutrition - Problem List Review Problem List Initiated/Reviewed/Updated: Yes - My Orders Last 24 Hours: My Active Orders 06/26/20 13:00 Fat Emulsion [Intralipid 20%] 500 ml IV MoWeFr 06/27/20 00:00 Insulin Lispro [HumaLOG] See Protocol SUBCUT Q6HR 06/27/20 10:00 MVI, Adult with Vitamin K [Infuvite Adult] 10 ml Chromium/Copper/Zander/Zinc [Multitrace-4 Concentrate] 1 ml AA 5%/Calcium/D20W/Lytes [Clinimix E 01/21] 1,000 ml IV TITRATE 06/28/20 05:11 BASIC METABOLIC PANEL,BMP [CHEM] AM MAGNESIUM [CHEM] AM PHOSPHORUS [CHEM] AM 06/29/20 05:11 BASIC METABOLIC PANEL,BMP [CHEM] AM MAGNESIUM [CHEM] AM PHOSPHORUS [CHEM] AM 06/30/20 05:11 BASIC METABOLIC PANEL,BMP [CHEM] AM MAGNESIUM [CHEM] AM PHOSPHORUS [CHEM] AM - Plan Plan:: 79-year-old female with ovarian cancer presents to the emergency department after being seen at the clinic with increasing weakness following treatment with doxorubicin. Hypovolemic hyponatremia Acute on chronic renal insufficiency Elevated anion gap likely secondary to hypovolemia Hyponatremia secondary to protein calorie malnutrition Anemia Leukocytosis likely stress response Mouth ulcers, possible thrush Otalgia * Given 2 L normal saline, 1 in the clinic and 1 in the emergency department * Progressive weakness of the last 7 days * Unable to care for herself or have level of care for her * Repeat labs showed continued sodium of 129 and a creatinine down to 3.1, estimated GFR 15 * Albumin low at 1.7, corrected calcium 10.1. AST, ALT, alkaline phosphatase, bilirubin normal * WBC 10.55, hemoglobin 10.9 History of hypertension and hypothyroidism Plan * Admit to medical floor for rehydration * Follow renal function closely. * Order physical therapy and Occupational Therapy consults. * Continue home meds * Check TSH in the morning. * Monitor vital signs every 4 hours. * Dietary consult * Nystatin swish and spit 4 times daily * Analgesia for ear pain. Nothing significant found on exam. * VTE prophylaxis with Lovenox adjusted for renal function * Adjust medications based on renal function. * CODE STATUS: Full code * Disposition admit to floor with likely length of stay 2 to 3 days. * 06/20/2020 The patient is a 79-year-old lady who had been admitted predominantly for weakness. Physical therapy has been ordered. The patient will likely need to have therapeutic paracentesis as she does have ovarian cancer. The patient also has had recent chemotherapy and CBC, CMP have been ordered for her. She will continue diet as tolerated. Also I have ordered Magic mouthwash to help with her stomatitis. The patient does have pitting edema consistent with low albumin. This likely represents protein calorie malnutrition will require supplementation. Consult for dietitian has been ordered. 06/21/2020 The patient is a 79-year-old lady who has rather moderate ascites. She will need a paracentesis. Because of the patient's history of ovarian cancer is likely that the ascites is malignant. Paracentesis will be primarily for therapeutic reasons. The patient also has severe hypoalbuminemia which has been a contributing factor to her lower extremity edema. Patient says that she has not used any of the Magic mouthwash for her stomatitis. Dietary consultation has been ordered for the patient. PT OT will continue for the patient. The patient's Lovenox will be continued for VTE prophylaxis. She is currently in a full resuscitative CODE STATUS and this will be honored. She will likely be appropriate to discharge 1 to 2 days. 06/22/2020 The patient still has ascites. I have consulted Dr. Peralta, surgeon, to query about therapeutic paracentesis. The patient says that she is still having uncomfortable burning sensation in her mouth and has been unable to tolerate the Magic mouthwash for her stomatitis. I will keep this on the medication record. Dietary consultation has also been ordered for the patient PT OT will be continued for her. She is currently in a full resuscitative code and she should be likely appropriate for discharge tomorrow after paracentesis. Repeat laboratory studies have been ordered for the morning. 06/23/20 The patient's primary complaint today is stomatitis. I have encouraged the patient to use the Magic mouthwash to help her. She still remains protein and calorie malnourished as related to her hypoalbuminemia. PT OT will continue for the patient. The patient will also have repeat laboratory studies. I did have a long discussion with the patient with regards to long-term health and had discussed DNR/DNI categories. The patient is still unsure and so will remain in full code category. The patient will need to continue with dietary supplements to help her protein. She also has been encouraged to continue with oral intake. The patient also had paracentesis yesterday without incident and had 6 L removed. I had also ordered 50 of albumin to help with her oncotic pressure. 06/24/20 The patient's primary concern today is that of stomatitis. Her mouth is red and inflamed and she has been recommended to use the Magic mouthwash to help with her stomatitis. My concern is that the patient is not maintaining enough oral intake to help with her hypoalbuminemia which is also causing her to have severe pedal edema. The patient has been encouraged to ambulate as necessary. She is to continue with the supplementations. I have recommended that the dietitian work closely with the patient. At this point due to the patient's overall weakness she would be considered appropriate for long-term care facility. 06/25/2020 The patient is still having difficulty with her stomatitis. She has not been using the Magic mouthwash. I recommended that the patient try to use this to help some of the pain. Also discussed feeding tube with the patient in order to receive some kind of nutritional/protein supplementation. The patient rejects the idea of a NG tube for feeding. She is asking about her Chemo-Port being used for TPN. The patient has been encouraged to ambulate. She will be kept on her current medications. The patient's white blood cell count has also dropped today and this will be monitored very closely for signs of neutropenic fever. Thus far the patient has been afebrile. The patient's albumin has also dropped to 1.1 g/dL. TPN will be ordered for the patient with protein will discuss and consult with a dietitian. 06/26/2020 The patient today is still having difficulty with her stomatitis. The patient has also been encouraged to use sponge sticks with Magic mouthwash to help with her stomatitis. I have ordered oral care to help with patient. Patient has been tolerating TPN. The patient has been encouraged to ambulate. Patient also has been recommended to continue sitting in chair more often. The patient's white blood cell count has declined to 2.19 thousand. Repeat laboratory studies have been ordered to continue to monitor this. Also the patient's magnesium is low and this will be replaced with 2 g of IV magnesium. Patient may require placement. 06/27/2020 The patient today says that her stomatitis is improved. She has been encouraged to continue with sponge sticks and Magic mouthwash. She has been tolerating TPN and this will help her protein. I have ordered repeat laboratory tests for the morning. She has been recommended to continue up with chair. The patient was also noted to be hypomagnesemic and this was replaced and her magnesium today is normal. We will recheck her magnesium. The patient's leukopenia will also be monitored closely. She has been encouraged to ambulate as she can. The patient will likely need placement and she should be appropriate in 3 to 5 days. The patient for now is still in the full code resuscitative status.
[2020-06-27] MEDS: Ondansetron 4 MG/2 ML SDV IV PRN (11:55)
[2020-06-27] MEDS: Sodium Chloride 0.9% 1,000 ML IV SCH (18:30)
[2020-06-27] MEDS: HYDROmorphone 0.5 MG/0.5 ML Syringe IVPUSH PRN (21:10)
[2020-06-28] MEDS: AA 5%/Calcium/D20W/Lytes 1,000 ML IV SCH (00:21)
[2020-06-28] MEDS: Insulin Lispro 100 Units/ML 3 ML Vial SUBCUT SCH ×4 (00:34→18:16)
[2020-06-28] MEDS: HYDROmorphone 0.5 MG/0.5 ML Syringe IVPUSH PRN ×2 (06:41→17:08)
[2020-06-28] MEDS: Levothyroxine 25 MCG Tab PO SCH (06:43)
[2020-06-28] MEDS: Metoprolol Succinate 50 MG Tab.ER PO SCH (09:50)
[2020-06-28] MEDS: Enoxaparin 30 MG/0.3 ML Syringe SUBCUT SCH (10:05)
[2020-06-28] MEDS: Nystatin Susp 100,000 Unit/ML 5 ML Oral Syringe PO SCH ×4 (10:07→21:37)
--- NOTE | 2020-06-28 10:16 | PCM.PN ---
- General Info Date of Service: 06/28/20 Admission Dx/Problem (Free Text): Generalized weakness, ascites, ovarian cancer Subjective Update: The patient is a 79-year-old lady who was initially admitted on June 19, 2020 after concern for ovarian cancer and ascites. The patient has been continuing to decline. The patient has been refusing oral care. She has been unable to eat due to stomatitis and she has been placed on TPN and thus far has been tolerating it. The patient also has not been ambulating. Functional Status: Denies: Pain Controlled, Tolerating Diet (On TPN) - Review of Systems General: Reports: Weakness, Fatigue HEENT: Reports: Sore Throat, Other (Stomatitis) Pulmonary: Reports: Shortness of Breath Cardiovascular: Reports: No Symptoms Gastrointestinal: Reports: Abdominal Pain Genitourinary: Reports: No Symptoms Musculoskeletal: Reports: Back Pain Skin: Reports: No Symptoms Neurological: Denies: Difficulty Walking Psychiatric: Reports: Depression - Patient Data Vitals - Most Recent: Last Vital Signs Temp 37.3 C 06/28/20 07:56 Pulse 113 H 06/28/20 09:50 Resp 20 06/28/20 07:56 BP 120/63 06/28/20 09:50 Pulse Ox 96 06/28/20 07:56 Weight - Most Recent: 82.826 kg I&O - Last 24 Hours: Intake & Output 06/27/20 06/28/20 06/28/20 22:59 06:59 14:59 Intake Total 210 1231 Output Total 200 Balance 10 1231 Lab Results Last 24 Hours: Laboratory Results - last 24 hr 06/27/20 06/27/20 06/28/20 Range/Units 12:15 18:06 00:30 WBC (3.98-10.04) K/mm3 RBC (3.98-5.22) M/mm3 Hgb (11.2-15.7) gm/dl Hct (34.1-44.9) % MCV (79.4-94.8) fl MCH (25.6-32.2) pg MCHC (32.2-35.5) g/dl RDW Std Deviation (36.4-46.3) fL Plt Count (182-369) K/mm3 MPV (9.4-12.3) fl Neut % (Auto) (34.0-71.1) % Lymph % (Auto) (19.3-51.7) % [place] % (Auto) (4.7-12.5) % Eos % (Auto) (0.7-5.8) Baso % (Auto) (0.1-1.2) % Neut # (Auto) (1.56-6.13) K/mm3 Lymph # (Auto) (1.18-3.74) K/mm3 [place] # (Auto) (0.24-0.36) K/mm3 Eos # (Auto) (0.04-0.36) K/mm3 Baso # (Auto) (0.01-0.08) K/mm3 Manual Slide Review Sodium (136-145) mEq/L Potassium (3.5-5.1) mEq/L Chloride (98-107) mEq/L Carbon Dioxide (21-32) mEq/L Anion Gap (5-15) BUN (7-18) mg/dL Creatinine (0.55-1.02) mg/dL Est Cr Clr Drug Dosing mL/min Estimated GFR (MDRD) (>60) mL/min BUN/Creatinine Ratio (14-18) Glucose (83-115) mg/dL POC Glucose 215 H 202 H 179 H (83-110) mg/dL Calcium (8.5-10.1) mg/dL Phosphorus (2.6-4.7) mg/dL Magnesium (1.8-2.4) mg/dl 06/28/20 06/28/20 06/28/20 Range/Units 05:45 05:45 05:47 WBC 2.74 L (3.98-10.04) K/mm3 RBC 3.62 L (3.98-5.22) M/mm3 Hgb 9.2 L (11.2-15.7) gm/dl Hct 29.1 L (34.1-44.9) % MCV 80.4 (79.4-94.8) fl MCH 25.4 L (25.6-32.2) pg MCHC 31.6 L (32.2-35.5) g/dl RDW Std Deviation 54.0 H (36.4-46.3) fL Plt Count 278 (182-369) K/mm3 MPV 9.3 L (9.4-12.3) fl Neut % (Auto) 68.2 (34.0-71.1) % Lymph % (Auto) 11.7 L (19.3-51.7) % [place] % (Auto) 15.3 H (4.7-12.5) % Eos % (Auto) 2.6 (0.7-5.8) Baso % (Auto) 0.4 (0.1-1.2) % Neut # (Auto) 1.87 (1.56-6.13) K/mm3 Lymph # (Auto) 0.32 L (1.18-3.74) K/mm3 [place] # (Auto) 0.42 H (0.24-0.36) K/mm3 Eos # (Auto) 0.07 (0.04-0.36) K/mm3 Baso # (Auto) 0.01 (0.01-0.08) K/mm3 Manual Slide Review Abnormal smear Sodium 135 L (136-145) mEq/L Potassium 3.8 (3.5-5.1) mEq/L Chloride 108 H (98-107) mEq/L Carbon Dioxide 16 L (21-32) mEq/L Anion Gap 14.8 (5-15) BUN 75 H (7-18) mg/dL Creatinine 1.9 H (0.55-1.02) mg/dL Est Cr Clr Drug Dosing 22.31 mL/min Estimated GFR (MDRD) 26 (>60) mL/min BUN/Creatinine Ratio 39.5 H (14-18) Glucose 179 H (83-115) mg/dL POC Glucose 170 H (83-110) mg/dL Calcium 7.7 L (8.5-10.1) mg/dL Phosphorus 3.0 (2.6-4.7) mg/dL Magnesium 2.2 (1.8-2.4) mg/dl Med Orders - Current: Current Medications Acetaminophen (Tylenol) 650 mg PO Q4H PRN PRN Reason: Pain (Mild 1-3)/fever Diphenhydr/Magaldrate/Simeth/Lidoca (First-Mouthwash Blm Susp) 30 ml PO Q4H PRN PRN Reason: Dryness Last Admin: 06/26/20 18:37 Dose: 30 ml Documented by: Enoxaparin Sodium (Lovenox) 30 mg SUBCUT DAILY [facility] Last Admin: 06/28/20 10:05 Dose: 30 mg Documented by: Hydromorphone HCl (Dilaudid) 0.25 mg IVPUSH Q2H PRN PRN Reason: Pain (severe 7-10) Last Admin: 06/28/20 06:41 Dose: 0.25 mg Documented by: Amino Ac/Electrol/Dextrose/Calcium (Clinimix E 01/21) 1,000 mls @ 80 mls/hr IV TITRATE [facility] Last Admin: 06/28/20 00:21 Dose: 80 mls/hr Documented by: Sodium Chloride (Normal Saline) 1,000 mls @ 20 mls/hr IV ASDIRECTED [facility] Last Admin: 06/27/20 18:30 Dose: 20 mls/hr Documented by: Fat Emulsion Intravenous (Intralipid 20%) 500 mls @ 62.5 mls/hr IV MoWeFr [facility] Last Admin: 06/26/20 13:32 Dose: 62.5 mls/hr Documented by: Multivitamins/Minerals 10 ml/Chromium/Copper/Manganese/Zinc 1 ml/ Amino Ac/Electrol/Dextrose/Calcium 1,011 mls @ 80 mls/hr IV TITRATE [facility] Stop: 06/29/20 01:39 Insulin Human Lispro (Humalog) 0 unit SUBCUT Q6HR [facility]; Protocol Last Admin: 06/28/20 06:42 Dose: 1 units Documented by: Levothyroxine Sodium (Levothyroxine) 25 mcg PO ACBREAKFAST [facility] Last Admin: 06/28/20 06:43 Dose: 25 mcg Documented by: Magnesium Hydroxide (Milk Of Magnesia) 30 ml PO Q12H PRN PRN Reason: Constipation Metoprolol Succinate (Toprol Xl) 100 mg PO DAILY [facility] Last Admin: 06/28/20 09:50 Dose: 100 mg Documented by: Nystatin (Nystatin Oral Syringe) 500,000 unit PO QID [facility] Last Admin: 06/28/20 10:07 Dose: Not Given Documented by: Nystatin (Nystop) 0 gm TOP TID [facility] Last Admin: 06/27/20 20:57 Dose: 1 applic Documented by: Ondansetron HCl (Zofran) 4 mg IV Q4H PRN PRN Reason: Nausea/Vomiting Last Admin: 06/27/20 11:55 Dose: 4 mg Documented by: Oxycodone HCl (Oxycodone) 5 mg PO Q4H PRN PRN Reason: Pain (moderate 4-6) Pharmacy Consult (Consult To Pharmacy) 1 each .XX DAILY PRN PRN Reason: RX TO MANAGE ELECTROLYTE Polyethylene Glycol (Miralax) 17 gm PO DAILY PRN PRN Reason: Constipation Senna/Docusate Sodium (Senna Plus) 1 tab PO BID PRN PRN Reason: Constipation Temazepam (Restoril) 7.5 mg PO BEDTIME PRN PRN Reason: Sleep Discontinued Medications Hydromorphone HCl (Dilaudid) 1 mg IVPUSH Q1H PRN PRN Reason: Pain Sodium Chloride (Normal Saline) 1,000 mls @ 1,000 mls/hr IV ONETIME ONE Stop: 06/19/20 12:40 Last Admin: 06/19/20 13:10 Dose: 1,000 mls/hr Documented by: Dextrose/Sodium Chloride (Dextrose 5%-Normal Saline) 1,000 mls @ 100 mls/hr IV ASDIRECTED [facility] Last Admin: 06/22/20 06:42 Dose: 100 mls/hr Documented by: Dextrose/Sodium Chloride (Dextrose 5%-Normal Saline) Confirm Administered Dose 1,000 mls @ as directed .ROUTE .STK-MED ONE Stop: 06/22/20 05:52 Last Admin: 06/22/20 10:59 Dose: Not Given Documented by: Albumin Human (Flexbumin 25%) 12.5 gm in 50 mls @ 50 mls/hr IV ONETIME ONE Stop: 06/22/20 16:59 Last Admin: 06/22/20 16:28 Dose: 50 mls/hr Documented by: Sodium Chloride (Normal Saline) 1,000 mls @ 75 mls/hr IV ASDIRECTED [facility] Stop: 06/25/20 17:00 Last Admin: 06/25/20 06:17 Dose: 75 mls/hr Documented by: Tpn Placeholder 1,000 mls @ 40 mls/hr .XX ASDIRECTED [facility] Multivitamins/Minerals 10 ml/Chromium/Copper/Manganese/Zinc 1 ml/ Amino Ac/Electrol/Dextrose/Calcium 1,011 mls @ 40 mls/hr IV TITRATE [facility] Stop: 06/26/20 15:59 Last Infusion: 06/26/20 04:57 Dose: 80 mls/hr Documented by: Magnesium Sulfate 4 gm/ Premix 50 mls @ 12.5 mls/hr IV ONETIME ONE Stop: 06/26/20 11:29 Last Admin: 06/26/20 08:41 Dose: 12.5 mls/hr Documented by: Multivitamins/Minerals 10 ml/Chromium/Copper/Manganese/Zinc 1 ml/ Amino Ac/Electrol/Dextrose/Calcium 1,011 mls @ 80 mls/hr IV TITRATE [facility] Stop: 06/27/20 22:39 Last Admin: 06/27/20 11:12 Dose: 80 mls/hr Documented by: Insulin Human Lispro (Humalog) 0 unit SUBCUT QIDACANDBED [facility]; Protocol Last Admin: 06/27/20 00:54 Dose: Not Given Documented by: Non-Formulary Medication (Promethazine Gel) 25 mg TOP Q6H PRN PRN Reason: Nausea Ondansetron HCl (Zofran) 4 mg IVPUSH Q6H PRN PRN Reason: Nausea/Vomiting - Exam Quality Assessment: No: Supplemental Oxygen General: Alert, Oriented, Mild Distress, Lethargic HEENT: Pupils Equal, Pupils Reactive, EOMI. No: Mucous Membr. Moist/Lingle (Blood in oral cavity with ulceration patient unable to open her mouth due to pain) Neck: Supple, Trachea Midline Lungs: Clear to Auscultation, Normal Respiratory Effort Cardiovascular: Regular Rate, Regular Rhythm GI/Abdominal Exam: Soft, No Distention. No: Normal Bowel Sounds (Hypoactive) (Female) Exam: Deferred Back Exam: Normal Inspection, Full Range of Motion Extremities: Pedal Edema (Anasarca), Limited Range of Motion (Loss of strength) Skin: Warm, Dry, Intact Neurological: No New Focal Deficit. No: Strength Equal Bilateral Psy/Mental Status: Alert, Normal Affect, Normal Mood Sepsis Event Note - Evaluation Sepsis Screening Result: No Definite Risk - Focused Exam Vital Signs: Vital Signs Temp Pulse Resp BP Pulse Ox 06/28/20 09:50 113 H 120/63 06/28/20 07:56 37.3 C 107 H 20 118/60 96 06/28/20 04:00 36.7 C 111 H 18 129/73 93 L - Problem List & Annotations (1) Stomatitis and mucositis, unspecified SNOMED Code(s): 69950438 Code(s): K12.1 - OTHER FORMS OF STOMATITIS; K12.30 - ORAL MUCOSITIS (ULCERATIVE), UNSPECIFIED Status: Acute Priority: High Current Visit: Yes (2) Ascites, malignant SNOMED Code(s): 016533082 Code(s): R18.0 - MALIGNANT ASCITES Status: Chronic Priority: High Current Visit: Yes (3) Vertigo SNOMED Code(s): 383340445 Code(s): R42 - DIZZINESS AND GIDDINESS Status: Acute Priority: High Current Visit: Yes (4) Generalized weakness SNOMED Code(s): 40042196 Code(s): R53.1 - WEAKNESS Status: Chronic Priority: Medium Current Visit: Yes (5) Ovarian cancer SNOMED Code(s): 665025957 Code(s): C56.9 - MALIGNANT NEOPLASM OF UNSPECIFIED OVARY Status: Chronic Priority: Medium Current Visit: Yes Qualifiers: Laterality: unspecified laterality Qualified Code(s): C56.9 - Malignant neoplasm of unspecified ovary (6) Renal insufficiency SNOMED Code(s): 250175768, 596034960 Code(s): N28.9 - DISORDER OF KIDNEY AND URETER, UNSPECIFIED Status: Chronic Priority: High Current Visit: Yes Annotation/Comment:: Stage IV renal failure, EGFR 15 mL/min (7) Protein calorie malnutrition SNOMED Code(s): 612412233 Code(s): E46 - UNSPECIFIED PROTEIN-CALORIE MALNUTRITION Status: Acute Priority: High Current Visit: Yes Qualifiers: Protein-calorie malnutrition severity: moderate Qualified Code(s): E44.0 - Moderate protein-calorie malnutrition - Problem List Review Problem List Initiated/Reviewed/Updated: Yes - My Orders Last 24 Hours: My Active Orders 06/28/20 13:00 MVI, Adult with Vitamin K [Infuvite Adult] 10 ml Chromium/Copper/Zander/Zinc [Multitrace-4 Concentrate] 1 ml AA 5%/Calcium/D20W/Lytes [Clinimix E 01/21] 1,000 ml IV TITRATE 06/29/20 05:11 BASIC METABOLIC PANEL,BMP [CHEM] AM MAGNESIUM [CHEM] AM PHOSPHORUS [CHEM] AM 06/30/20 05:11 BASIC METABOLIC PANEL,BMP [CHEM] AM MAGNESIUM [CHEM] AM PHOSPHORUS [CHEM] AM - Plan Plan:: 79-year-old female with ovarian cancer presents to the emergency department after being seen at the clinic with increasing weakness following treatment with doxorubicin. Hypovolemic hyponatremia Acute on chronic renal insufficiency Elevated anion gap likely secondary to hypovolemia Hyponatremia secondary to protein calorie malnutrition Anemia Leukocytosis likely stress response Mouth ulcers, possible thrush Otalgia * Given 2 L normal saline, 1 in the clinic and 1 in the emergency department * Progressive weakness of the last 7 days * Unable to care for herself or have level of care for her * Repeat labs showed continued sodium of 129 and a creatinine down to 3.1, estimated GFR 15 * Albumin low at 1.7, corrected calcium 10.1. AST, ALT, alkaline phosphatase, bilirubin normal * WBC 10.55, hemoglobin 10.9 History of hypertension and hypothyroidism Plan * Admit to medical floor for rehydration * Follow renal function closely. * Order physical therapy and Occupational Therapy consults. * Continue home meds * Check TSH in the morning. * Monitor vital signs every 4 hours. * Dietary consult * Nystatin swish and spit 4 times daily * Analgesia for ear pain. Nothing significant found on exam. * VTE prophylaxis with Lovenox adjusted for renal function * Adjust medications based on renal function. * CODE STATUS: Full code * Disposition admit to floor with likely length of stay 2 to 3 days. * 06/20/2020 The patient is a 79-year-old lady who had been admitted predominantly for weakness. Physical therapy has been ordered. The patient will likely need to have therapeutic paracentesis as she does have ovarian cancer. The patient also has had recent chemotherapy and CBC, CMP have been ordered for her. She will continue diet as tolerated. Also I have ordered Magic mouthwash to help with her stomatitis. The patient does have pitting edema consistent with low albumin. This likely represents protein calorie malnutrition will require supplementation. Consult for dietitian has been ordered. 06/21/2020 The patient is a 79-year-old lady who has rather moderate ascites. She will need a paracentesis. Because of the patient's history of ovarian cancer is likely that the ascites is malignant. Paracentesis will be primarily for therapeutic reasons. The patient also has severe hypoalbuminemia which has been a contributing factor to her lower extremity edema. Patient says that she has not used any of the Magic mouthwash for her stomatitis. Dietary consultation has been ordered for the patient. PT OT will continue for the patient. The patient's Lovenox will be continued for VTE prophylaxis. She is currently in a full resuscitative CODE STATUS and this will be honored. She will likely be appropriate to discharge 1 to 2 days. 06/22/2020 The patient still has ascites. I have consulted Dr. Peralta, surgeon, to query about therapeutic paracentesis. The patient says that she is still having uncomfortable burning sensation in her mouth and has been unable to tolerate the Magic mouthwash for her stomatitis. I will keep this on the medication record. Dietary consultation has also been ordered for the patient PT OT will be continued for her. She is currently in a full resuscitative code and she should be likely appropriate for discharge tomorrow after paracentesis. Repeat laboratory studies have been ordered for the morning. 06/23/20 The patient's primary complaint today is stomatitis. I have encouraged the patient to use the Magic mouthwash to help her. She still remains protein and calorie malnourished as related to her hypoalbuminemia. PT OT will continue for the patient. The patient will also have repeat laboratory studies. I did have a long discussion with the patient with regards to long-term health and had discussed DNR/DNI categories. The patient is still unsure and so will remain in full code category. The patient will need to continue with dietary supplements to help her protein. She also has been encouraged to continue with oral intake. The patient also had paracentesis yesterday without incident and had 6 L removed. I had also ordered 50 of albumin to help with her oncotic pressure. 06/24/20 The patient's primary concern today is that of stomatitis. Her mouth is red and inflamed and she has been recommended to use the Magic mouthwash to help with her stomatitis. My concern is that the patient is not maintaining enough oral intake to help with her hypoalbuminemia which is also causing her to have severe pedal edema. The patient has been encouraged to ambulate as necessary. She is to continue with the supplementations. I have recommended that the dietitian work closely with the patient. At this point due to the patient's overall weakness she would be considered appropriate for long-term care facility. 06/25/2020 The patient is still having difficulty with her stomatitis. She has not been using the Magic mouthwash. I recommended that the patient try to use this to help some of the pain. Also discussed feeding tube with the patient in order to receive some kind of nutritional/protein supplementation. The patient rejects the idea of a NG tube for feeding. She is asking about her Chemo-Port being used for TPN. The patient has been encouraged to ambulate. She will be kept on her current medications. The patient's white blood cell count has also dropped today and this will be monitored very closely for signs of neutropenic fever. Thus far the patient has been afebrile. The patient's albumin has also dropped to 1.1 g/dL. TPN will be ordered for the patient with protein will discuss and consult with a dietitian. 06/26/2020 The patient today is still having difficulty with her stomatitis. The patient has also been encouraged to use sponge sticks with Magic mouthwash to help with her stomatitis. I have ordered oral care to help with patient. Patient has been tolerating TPN. The patient has been encouraged to ambulate. Patient also has been recommended to continue sitting in chair more often. The patient's white blood cell count has declined to 2.19 thousand. Repeat laboratory studies have been ordered to continue to monitor this. Also the patient's magnesium is low and this will be replaced with 2 g of IV magnesium. Patient may require placement. 06/27/2020 The patient today says that her stomatitis is improved. She has been encouraged to continue with sponge sticks and Magic mouthwash. She has been tolerating TPN and this will help her protein. I have ordered repeat laboratory tests for the morning. She has been recommended to continue up with chair. The patient was also noted to be hypomagnesemic and this was replaced and her magnesium today is normal. We will recheck her magnesium. The patient's leukopenia will also be monitored closely. She has been encouraged to ambulate as she can. The patient will likely need placement and she should be appropriate in 3 to 5 days. The patient for now is still in the full code resuscitative status. 06/28/2020 The patient is a 79-year-old lady who appears to be in precipitous decline. The patient has become more edematous and this is secondary to the oncotic pressure from hypoalbuminemia. Dietary is monitoring the patient's nutrients through TPN. The patient should have extra protein added. She has been recommended to sit in chair. I had a long discussion with the patient with regards to her CODE STATUS and the patient is a still not ready to make the decision to be consid ered DNR/DNI. Placement has been recommended for the patient when she has improved somewhat. I suspect at this time the patient's overall status is poor due to her severe protein malnutrition and stage IV ovarian cancer. I have ordered repeat laboratory studies in morning to include albumin, prealbumin and ferritin.
[2020-06-28] MEDS: Nystatin Topical Powder 15 GM Bottle TOP SCH ×3 (10:21→21:37)
[2020-06-28] MEDS: Diphenhydramine/Lidocaine/MagAl/Simethicone 119 ML Bottle PO PRN (10:23)
[2020-06-28] MEDS ORDERED: MVI IV SCH ×3 (13:00)
[2020-06-28] MEDS ORDERED: COPPER IV SCH ×3 (13:00)
[2020-06-28] MEDS ORDERED: ZINC IV SCH ×3 (13:00)
[2020-06-28] MEDS ORDERED: MANG IV SCH ×3 (13:00)
[2020-06-28] MEDS ORDERED: CHROMIUM IV SCH ×3 (13:00)
[2020-06-28] MEDS ORDERED: VITAMIN K IV SCH ×3 (13:00)
[2020-06-28] MEDS ORDERED: [UNRECOGNIZED DRUG - OTHER] IV SCH ×3 (13:00)
[2020-06-28] MEDS: Sodium Chloride 0.9% 1,000 ML IV SCH (19:23)
[2020-06-29] MEDS: Insulin Lispro 100 Units/ML 3 ML Vial SUBCUT SCH ×4 (00:39→18:33)
[2020-06-29] MEDS: HYDROmorphone 0.5 MG/0.5 ML Syringe IVPUSH PRN ×2 (00:56→22:25)
[2020-06-29] MEDS: AA 5%/Calcium/D20W/Lytes 1,000 ML IV SCH (02:21)
[2020-06-29] MEDS: Levothyroxine 25 MCG Tab PO SCH (06:24)
[2020-06-29] MEDS: Metoprolol Succinate 50 MG Tab.ER PO SCH (09:24)
[2020-06-29] MEDS: Nystatin Susp 100,000 Unit/ML 5 ML Oral Syringe PO SCH (09:24)
[2020-06-29] MEDS: Enoxaparin 30 MG/0.3 ML Syringe SUBCUT SCH (09:24)
[2020-06-29] MEDS: Nystatin Topical Powder 15 GM Bottle TOP SCH ×3 (09:25→22:16)
--- NOTE | 2020-06-29 14:30 | PCM.PN ---
- General Info Date of Service: 06/29/20 Admission Dx/Problem (Free Text): Generalized weakness, ascites, ovarian cancer Subjective Update: The patient is a 79-year-old lady who was initially admitted on June 19, 2020 after concern for ovarian cancer and ascites. Patient continues to have painful mouth ulcers and today even had bleeding ulcers. Her upper dentures had to be removed. She is having difficulty taking anything by mouth. - Review of Systems General: Reports: Fatigue Pulmonary: Reports: No Symptoms Cardiovascular: Reports: No Symptoms Gastrointestinal: Reports: No Symptoms - Patient Data Vitals - Most Recent: Last Vital Signs Temp 97.3 F 06/29/20 08:04 Pulse 100 06/29/20 08:04 Resp 16 06/29/20 08:04 BP 112/66 06/29/20 08:04 Pulse Ox 98 06/29/20 08:04 Weight - Most Recent: 84.096 kg I&O - Last 24 Hours: Intake & Output 06/28/20 06/29/20 06/29/20 22:59 06:59 14:59 Intake Total 453 1810 120 Output Total 200 Balance 253 1810 120 Lab Results Last 24 Hours: Laboratory Results - last 24 hr 06/28/20 06/29/20 06/29/20 Range/Units 18:15 00:03 05:15 Sodium 135 L (136-145) mEq/L Potassium 4.2 (3.5-5.1) mEq/L Chloride 108 H (98-107) mEq/L Carbon Dioxide 14 L (21-32) mEq/L Anion Gap 17.2 H (5-15) BUN 84 H (7-18) mg/dL Creatinine 1.9 H (0.55-1.02) mg/dL Est Cr Clr Drug Dosing 22.31 mL/min Estimated GFR (MDRD) 26 (>60) mL/min BUN/Creatinine Ratio 44.2 H (14-18) Glucose 138 H (83-115) mg/dL POC Glucose 190 H 205 H (83-110) mg/dL Calcium 7.9 L (8.5-10.1) mg/dL Phosphorus 3.5 (2.6-4.7) mg/dL Magnesium 2.3 (1.8-2.4) mg/dl 06/29/20 06/29/20 Range/Units 06:20 13:36 Sodium (136-145) mEq/L Potassium (3.5-5.1) mEq/L Chloride (98-107) mEq/L Carbon Dioxide (21-32) mEq/L Anion Gap (5-15) BUN (7-18) mg/dL Creatinine (0.55-1.02) mg/dL Est Cr Clr Drug Dosing mL/min Estimated GFR (MDRD) (>60) mL/min BUN/Creatinine Ratio (14-18) Glucose (83-115) mg/dL POC Glucose 175 H 178 H (83-110) mg/dL Calcium (8.5-10.1) mg/dL Phosphorus (2.6-4.7) mg/dL Magnesium (1.8-2.4) mg/dl Med Orders - Current: Current Medications Acetaminophen (Tylenol) 650 mg PO Q4H PRN PRN Reason: Pain (Mild 1-3)/fever Diphenhydr/Magaldrate/Simeth/Lidoca (First-Mouthwash Blm Susp) 30 ml PO Q4H PRN PRN Reason: Dryness Last Admin: 06/28/20 10:23 Dose: 30 ml Documented by: Enoxaparin Sodium (Lovenox) 30 mg SUBCUT DAILY [facility] Last Admin: 06/29/20 09:24 Dose: 30 mg Documented by: Hydromorphone HCl (Dilaudid) 0.25 mg IVPUSH Q2H PRN PRN Reason: Pain (severe 7-10) Last Admin: 06/29/20 00:56 Dose: 0.25 mg Documented by: Amino Ac/Electrol/Dextrose/Calcium (Clinimix E 01/21) 1,000 mls @ 80 mls/hr IV TITRATE [facility] Last Admin: 06/29/20 02:21 Dose: 80 mls/hr Documented by: Fat Emulsion Intravenous (Intralipid 20%) 500 mls @ 62.5 mls/hr IV MoWeFr [facility] Last Admin: 06/26/20 13:32 Dose: 62.5 mls/hr Documented by: Multivitamins/Minerals 10 ml/Chromium/Copper/Manganese/Zinc 1 ml/ Amino Ac/Electrol/Dextrose/Calcium 1,011 mls @ 80 mls/hr IV TITRATE [facility] Stop: 06/30/20 03:39 Insulin Human Lispro (Humalog) 0 unit SUBCUT Q6HR [facility]; Protocol Last Admin: 06/29/20 06:21 Dose: 1 units Documented by: Levothyroxine Sodium (Levothyroxine) 25 mcg PO ACBREAKFAST [facility] Last Admin: 06/29/20 06:24 Dose: 25 mcg Documented by: Magnesium Hydroxide (Milk Of Magnesia) 30 ml PO Q12H PRN PRN Reason: Constipation Metoprolol Succinate (Toprol Xl) 100 mg PO DAILY [facility] Last Admin: 06/29/20 09:24 Dose: Not Given Documented by: Nystatin (Nystop) 0 gm TOP TID [facility] Last Admin: 06/29/20 09:25 Dose: 1 applic Documented by: Ondansetron HCl (Zofran) 4 mg IV Q4H PRN PRN Reason: Nausea/Vomiting Last Admin: 06/27/20 11:55 Dose: 4 mg Documented by: Oxycodone HCl (Oxycodone) 5 mg PO Q4H PRN PRN Reason: Pain (moderate 4-6) Pharmacy Consult (Consult To Pharmacy) 1 each .XX DAILY PRN PRN Reason: RX TO MANAGE ELECTROLYTE Polyethylene Glycol (Miralax) 17 gm PO DAILY PRN PRN Reason: Constipation Senna/Docusate Sodium (Senna Plus) 1 tab PO BID PRN PRN Reason: Constipation Temazepam (Restoril) 7.5 mg PO BEDTIME PRN PRN Reason: Sleep Discontinued Medications Hydromorphone HCl (Dilaudid) 1 mg IVPUSH Q1H PRN PRN Reason: Pain Sodium Chloride (Normal Saline) 1,000 mls @ 1,000 mls/hr IV ONETIME ONE Stop: 06/19/20 12:40 Last Admin: 06/19/20 13:10 Dose: 1,000 mls/hr Documented by: Dextrose/Sodium Chloride (Dextrose 5%-Normal Saline) 1,000 mls @ 100 mls/hr IV ASDIRECTED [facility] Last Admin: 06/22/20 06:42 Dose: 100 mls/hr Documented by: Dextrose/Sodium Chloride (Dextrose 5%-Normal Saline) Confirm Administered Dose 1,000 mls @ as directed .ROUTE .STK-MED ONE Stop: 06/22/20 05:52 Last Admin: 06/22/20 10:59 Dose: Not Given Documented by: Albumin Human (Flexbumin 25%) 12.5 gm in 50 mls @ 50 mls/hr IV ONETIME ONE Stop: 06/22/20 16:59 Last Admin: 06/22/20 16:28 Dose: 50 mls/hr Documented by: Sodium Chloride (Normal Saline) 1,000 mls @ 75 mls/hr IV ASDIRECTED [facility] Stop: 06/25/20 17:00 Last Admin: 06/25/20 06:17 Dose: 75 mls/hr Documented by: Tpn Placeholder 1,000 mls @ 40 mls/hr .XX ASDIRECTED [facility] Multivitamins/Minerals 10 ml/Chromium/Copper/Manganese/Zinc 1 ml/ Amino Ac/Electrol/Dextrose/Calcium 1,011 mls @ 40 mls/hr IV TITRATE [facility] Stop: 06/26/20 15:59 Last Infusion: 06/26/20 04:57 Dose: 80 mls/hr Documented by: Sodium Chloride (Normal Saline) 1,000 mls @ 20 mls/hr IV ASDIRECTED [facility] Last Admin: 06/28/20 19:23 Dose: 20 mls/hr Documented by: Magnesium Sulfate 4 gm/ Premix 50 mls @ 12.5 mls/hr IV ONETIME ONE Stop: 06/26/20 11:29 Last Admin: 06/26/20 08:41 Dose: 12.5 mls/hr Documented by: Multivitamins/Minerals 10 ml/Chromium/Copper/Manganese/Zinc 1 ml/ Amino Ac/Electrol/Dextrose/Calcium 1,011 mls @ 80 mls/hr IV TITRATE [facility] Stop: 06/27/20 22:39 Last Admin: 06/27/20 11:12 Dose: 80 mls/hr Documented by: Multivitamins/Minerals 10 ml/Chromium/Copper/Manganese/Zinc 1 ml/ Amino Ac/Electrol/Dextrose/Calcium 1,011 mls @ 80 mls/hr IV TITRATE [facility] Stop: 06/29/20 01:39 Last Admin: 06/28/20 13:12 Dose: 80 mls/hr Documented by: Insulin Human Lispro (Humalog) 0 unit SUBCUT QIDACANDBED [facility]; Protocol Last Admin: 06/27/20 00:54 Dose: Not Given Documented by: Non-Formulary Medication (Promethazine Gel) 25 mg TOP Q6H PRN PRN Reason: Nausea Nystatin (Nystatin Oral Syringe) 500,000 unit PO QID [facility] Last Admin: 06/29/20 09:24 Dose: Not Given Documented by: Ondansetron HCl (Zofran) 4 mg IVPUSH Q6H PRN PRN Reason: Nausea/Vomiting - Exam Quality Assessment: No: Supplemental Oxygen General: Lethargic HEENT: Pupils Equal, Other (Oral mucosa is swollen throughout with ulceration. There were bleeding ulcerations on her gums.) Neck: Supple Lungs: Normal Respiratory Effort, Rales Cardiovascular: Regular Rate, Regular Rhythm GI/Abdominal Exam: Normal Bowel Sounds, Soft, Non-Tender, No Distention Extremities: Normal Capillary Refill, Pedal Edema Skin: Warm, Dry, Intact Neurological: No New Focal Deficit Psy/Mental Status: Alert, Normal Affect, Normal Mood Sepsis Event Note - Evaluation Sepsis Screening Result: No Definite Risk - Focused Exam Vital Signs: Vital Signs Temp Pulse Resp BP Pulse Ox 06/29/20 08:04 97.3 F 100 16 112/66 98 06/29/20 03:53 99.3 F 101 H 16 105/68 99 - Problem List & Annotations (1) Generalized weakness SNOMED Code(s): 42953114 Code(s): R53.1 - WEAKNESS Status: Chronic Priority: Medium Current Visit: Yes (2) Hyponatremia SNOMED Code(s): 08282876 Code(s): E87.1 - HYPO-OSMOLALITY AND HYPONATREMIA Status: Acute Current Visit: Yes (3) Ovarian cancer SNOMED Code(s): 854127935 Code(s): C56.9 - MALIGNANT NEOPLASM OF UNSPECIFIED OVARY Status: Chronic Priority: Medium Current Visit: Yes Qualifiers: Laterality: unspecified laterality Qualified Code(s): C56.9 - Malignant neoplasm of unspecified ovary (4) Renal insufficiency SNOMED Code(s): 646233669, 164557837 Code(s): N28.9 - DISORDER OF KIDNEY AND URETER, UNSPECIFIED Status: Chronic Priority: High Current Visit: Yes Annotation/Comment:: Stage IV renal failure, EGFR 15 mL/min (5) Acute renal failure SNOMED Code(s): 07890633 Code(s): N17.9 - ACUTE KIDNEY FAILURE, UNSPECIFIED Status: Acute Current Visit: No Qualifiers: Acute renal failure type: unspecified Qualified Code(s): N17.9 - Acute kidney failure, unspecified - Problem List Review Problem List Initiated/Reviewed/Updated: Yes - Plan Plan:: 79-year-old female with ovarian cancer presents to the emergency department after being seen at the clinic with increasing weakness following treatment with doxorubicin. Hypovolemic hyponatremia Acute on chronic renal insufficiency Elevated anion gap likely secondary to hypovolemia Hyponatremia secondary to protein calorie malnutrition Anemia Leukocytosis likely stress response Mouth ulcers, possible thrush Otalgia * Given 2 L normal saline, 1 in the clinic and 1 in the emergency department * Progressive weakness of the last 7 days * Unable to care for herself or have level of care for her * Repeat labs showed continued sodium of 129 and a creatinine down to 3.1, estimated GFR 15 * Albumin low at 1.7, corrected calcium 10.1. AST, ALT, alkaline phosphatase, bilirubin normal * WBC 10.55, hemoglobin 10.9 History of hypertension and hypothyroidism Plan * Admit to medical floor for rehydration * Follow renal function closely. * Order physical therapy and Occupational Therapy consults. * Continue home meds * Check TSH in the morning. * Monitor vital signs every 4 hours. * Dietary consult * Nystatin swish and spit 4 times daily * Analgesia for ear pain. Nothing significant found on exam. * VTE prophylaxis with Lovenox adjusted for renal function * Adjust medications based on renal function. * CODE STATUS: Full code * Disposition admit to floor with likely length of stay 2 to 3 days. * 06/20/2020 The patient is a 79-year-old lady who had been admitted predominantly for weakness. Physical therapy has been ordered. The patient will likely need to have therapeutic paracentesis as she does have ovarian cancer. The patient also has had recent chemotherapy and CBC, CMP have been ordered for her. She will continue diet as tolerated. Also I have ordered Magic mouthwash to help with her stomatitis. The patient does have pitting edema consistent with low albumin. This likely represents protein calorie malnutrition will require supplementation. Consult for dietitian has been ordered. 06/21/2020 The patient is a 79-year-old lady who has rather moderate ascites. She will need a paracentesis. Because of the patient's history of ovarian cancer is likely that the ascites is malignant. Paracentesis will be primarily for therapeutic reasons. The patient also has severe hypoalbuminemia which has been a contributing factor to her lower extremity edema. Patient says that she has not used any of the Magic mouthwash for her stomatitis. Dietary consultation has been ordered for the patient. PT OT will continue for the patient. The patient's Lovenox will be continued for VTE prophylaxis. She is currently in a full resuscitative CODE STATUS and this will be honored. She will likely be appropriate to discharge 1 to 2 days. 06/22/2020 The patient still has ascites. I have consulted Dr. Peralta, surgeon, to query about therapeutic paracentesis. The patient says that she is still having uncomfortable burning sensation in her mouth and has been unable to tolerate the Magic mouthwash for her stomatitis. I will keep this on the medication record. Dietary consultation has also been ordered for the patient PT OT will be continued for her. She is currently in a full resuscitative code and she should be likely appropriate for discharge tomorrow after paracentesis. Repeat laboratory studies have been ordered for the morning. 06/23/20 The patient's primary complaint today is stomatitis. I have encouraged the patient to use the Magic mouthwash to help her. She still remains protein and calorie malnourished as related to her hypoalbuminemia. PT OT will continue for the patient. The patient will also have repeat laboratory studies. I did have a long discussion with the patient with regards to long-term health and had discussed DNR/DNI categories. The patient is still unsure and so will remain in full code category. The patient will need to continue with dietary supplements to help her protein. She also has been encouraged to continue with oral intake. The patient also had paracentesis yesterday without incident and had 6 L removed. I had also ordered 50 of albumin to help with her oncotic pressure. 06/24/20 The patient's primary concern today is that of stomatitis. Her mouth is red and inflamed and she has been recommended to use the Magic mouthwash to help with her stomatitis. My concern is that the patient is not maintaining enough oral intake to help with her hypoalbuminemia which is also causing her to have severe pedal edema. The patient has been encouraged to ambulate as necessary. She is to continue with the supplementations. I have recommended that the dietitian work closely with the patient. At this point due to the patient's overall weakness she would be considered appropriate for long-term care facility. 06/25/2020 The patient is still having difficulty with her stomatitis. She has not been using the Magic mouthwash. I recommended that the patient try to use this to help some of the pain. Also discussed feeding tube with the patient in order to receive some kind of nutritional/protein supplementation. The patient rejects the idea of a NG tube for feeding. She is asking about her Chemo-Port being used for TPN. The patient has been encouraged to ambulate. She will be kept on her current medications. The patient's white blood cell count has also dropped today and this will be monitored very closely for signs of neutropenic fever. Thus far the patient has been afebrile. The patient's albumin has also dropped to 1.1 g/dL. TPN will be ordered for the patient with protein will discuss and consult with a dietitian. 06/26/2020 The patient today is still having difficulty with her stomatitis. The patient has also been encouraged to use sponge sticks with Magic mouthwash to help with her stomatitis. I have ordered oral care to help with patient. Patient has been tolerating TPN. The patient has been encouraged to ambulate. Patient also has been recommended to continue sitting in chair more often. The patient's white blood cell count has declined to 2.19 thousand. Repeat laboratory studies have been ordered to continue to monitor this. Also the patient's magnesium is low and this will be replaced with 2 g of IV magnesium. Patient may require placement. 06/27/2020 The patient today says that her stomatitis is improved. She has been encouraged to continue with sponge sticks and Magic mouthwash. She has been tolerating TPN and this will help her protein. I have ordered repeat laboratory tests for the morning. She has been recommended to continue up with chair. The patient was also noted to be hypomagnesemic and this was replaced and her magnesium today is normal. We will recheck her magnesium. The patient's leukopenia will also be monitored closely. She has been encouraged to ambulate as she can. The patient will likely need placement and she should be appropriate in 3 to 5 days. The patient for now is still in the full code resuscitative status. 06/28/2020 The patient is a 79-year-old lady who appears to be in precipitous decline. The patient has become more edematous and this is secondary to the oncotic pressure from hypoalbuminemia. Dietary is monitoring the patient's nutrients through TPN. The patient should have extra protein added. She has been recommended to sit in chair. I had a long discussion with the patient with regards to her CODE STATUS and the patient is a still not ready to make the decision to be c onsidered DNR/DNI. Placement has been recommended for the patient when she has improved somewhat. I suspect at this time the patient's overall status is poor due to her severe protein malnutrition and stage IV ovarian cancer. I have ordered repeat laboratory studies in morning to include albumin, prealbumin and ferritin. 06/29/2020 Patient continues to decline. I spoke with Monalisa Small NP who is her oncology provider. Monalisa spoke with Dr. Avery the oncology physician. Patient has failed chemotherapy and Dr. Avery recommends-of care. Renal function continues to be poor with creatinine of 1.8 and BUN of 84. She continues on TPN. Mouth continues to have severe ulceration and it is making it very difficult for her to take orally. I counseled her and her daughter in regards to her very poor prognosis and recommended she reevaluate her CODE STATUS. Patient will continue a full code overnight and we will reevaluate in the morning. She will get a CBC, CMP, magnesium, and phosphorus in the morning.
[2020-06-29] MEDS ORDERED: [UNRECOGNIZED DRUG - OTHER] IV SCH ×3 (15:00)
[2020-06-29] MEDS ORDERED: ZINC IV SCH ×3 (15:00)
[2020-06-29] MEDS ORDERED: MVI IV SCH ×3 (15:00)
[2020-06-29] MEDS ORDERED: CHROMIUM IV SCH ×3 (15:00)
[2020-06-29] MEDS ORDERED: MANG IV SCH ×3 (15:00)
[2020-06-29] MEDS ORDERED: COPPER IV SCH ×3 (15:00)
[2020-06-29] MEDS ORDERED: VITAMIN K IV SCH ×3 (15:00)
[2020-06-29] MEDS: Fat Emulsion 500 ML IV SCH (15:36)
[2020-06-30] MEDS: Insulin Lispro 100 Units/ML 3 ML Vial SUBCUT SCH ×2 (00:35→06:10)
[2020-06-30] MEDS: AA 5%/Calcium/D20W/Lytes 1,000 ML IV SCH (04:34)
[2020-06-30] MEDS: Levothyroxine 25 MCG Tab PO SCH (06:05)
[2020-06-30] MEDS: HYDROmorphone 0.5 MG/0.5 ML Syringe IVPUSH PRN ×2 (06:26→09:40)
[2020-06-30] MEDS: Ondansetron 4 MG/2 ML SDV IV PRN (06:26)
[2020-06-30] MEDS: Nystatin Topical Powder 15 GM Bottle TOP SCH (09:04)
[2020-06-30] MEDS: Enoxaparin 30 MG/0.3 ML Syringe SUBCUT SCH (09:05)
[2020-06-30] MEDS: Metoprolol Succinate 50 MG Tab.ER PO SCH (09:06)
[2020-06-30] MEDS ORDERED: Non-Formulary Medication 1 Each PRN (12:14)
[2020-06-30] MEDS ORDERED: AA 5%/Calcium/D20W/Lytes 1,000 ML IV SCH (12:15)
[2020-06-30] MEDS ORDERED: LORazepam 2 MG/ML SDV IVPUSH PRN (12:20)
[2020-06-30] MEDS: Morphine 2 MG/ML SYRINGE IVPUSH PRN ×2 (14:24→17:00)
--- NOTE | 2020-06-30 14:42 | PCM.PN ---
- General Info Date of Service: 06/30/20 Admission Dx/Problem (Free Text): Generalized weakness, ascites, ovarian cancer Subjective Update: Patient is continuing to worsen. I asked her if she wanted us to continue our current care or changed to comfort measures. Patient stated she wanted to be kept comfortable and did not want further care. Spoke with the family, and her daughter Vivien, stated that Adrienne wanted to come home and on hospice. Patient is difficult to understand secondary to her severe mouth ulcers, but she does voice agreement. Functional Status: Reports: Pain Controlled - Review of Systems General: Reports: Fatigue HEENT: Reports: Other (Mouth discomfort) - Patient Data Vitals - Most Recent: Last Vital Signs Temp 97.5 F 06/30/20 08:52 Pulse 109 H 06/30/20 08:52 Resp 16 06/30/20 08:52 BP 122/59 L 06/30/20 08:52 Pulse Ox 97 06/30/20 08:52 Weight - Most Recent: 85.411 kg I&O - Last 24 Hours: Intake & Output 06/29/20 06/30/20 06/30/20 22:59 06:59 14:59 Intake Total 840 1487 Balance 840 1487 Lab Results Last 24 Hours: Laboratory Results - last 24 hr 06/29/20 06/30/20 06/30/20 Range/Units 18:32 00:10 05:46 WBC 5.24 (3.98-10.04) K/mm3 RBC 3.39 L (3.98-5.22) M/mm3 Hgb 8.6 L (11.2-15.7) gm/dl Hct 27.2 L (34.1-44.9) % MCV 80.2 (79.4-94.8) fl MCH 25.4 L (25.6-32.2) pg MCHC 31.6 L (32.2-35.5) g/dl RDW Std Deviation 55.3 H (36.4-46.3) fL Plt Count 324 (182-369) K/mm3 MPV 9.5 (9.4-12.3) fl Neut % (Auto) 60.6 (34.0-71.1) % Lymph % (Auto) 8.8 L (19.3-51.7) % Barber % (Auto) 16.8 H (4.7-12.5) % Eos % (Auto) 2.7 (0.7-5.8) Baso % (Auto) 0.6 (0.1-1.2) % Neut # (Auto) 3.18 (1.56-6.13) K/mm3 Lymph # (Auto) 0.46 L (1.18-3.74) K/mm3 Barber # (Auto) 0.88 H (0.24-0.36) K/mm3 Eos # (Auto) 0.14 (0.04-0.36) K/mm3 Baso # (Auto) 0.03 (0.01-0.08) K/mm3 Manual Slide Review Abnormal smear Sodium (136-145) mEq/L Potassium (3.5-5.1) mEq/L Chloride (98-107) mEq/L Carbon Dioxide (21-32) mEq/L Anion Gap (5-15) BUN (7-18) mg/dL Creatinine (0.55-1.02) mg/dL Est Cr Clr Drug Dosing mL/min Estimated GFR (MDRD) (>60) mL/min BUN/Creatinine Ratio (14-18) Glucose (83-115) mg/dL POC Glucose 181 H 164 H (83-110) mg/dL Calcium (8.5-10.1) mg/dL Phosphorus (2.6-4.7) mg/dL Magnesium (1.8-2.4) mg/dl Total Bilirubin (0.2-1.0) mg/dL AST (15-37) U/L ALT (14-59) U/L Alkaline Phosphatase (46-116) U/L Total Protein (6.4-8.2) g/dl Albumin (3.4-5.0) g/dl Globulin gm/dL Albumin/Globulin Ratio (1-2) 06/30/20 06/30/20 Range/Units 05:46 06:09 WBC (3.98-10.04) K/mm3 RBC (3.98-5.22) M/mm3 Hgb (11.2-15.7) gm/dl Hct (34.1-44.9) % MCV (79.4-94.8) fl MCH (25.6-32.2) pg MCHC (32.2-35.5) g/dl RDW Std Deviation (36.4-46.3) fL Plt Count (182-369) K/mm3 MPV (9.4-12.3) fl Neut % (Auto) (34.0-71.1) % Lymph % (Auto) (19.3-51.7) % Barber % (Auto) (4.7-12.5) % Eos % (Auto) (0.7-5.8) Baso % (Auto) (0.1-1.2) % Neut # (Auto) (1.56-6.13) K/mm3 Lymph # (Auto) (1.18-3.74) K/mm3 Barber # (Auto) (0.24-0.36) K/mm3 Eos # (Auto) (0.04-0.36) K/mm3 Baso # (Auto) (0.01-0.08) K/mm3 Manual Slide Review Sodium 134 L (136-145) mEq/L Potassium 4.6 (3.5-5.1) mEq/L Chloride 107 (98-107) mEq/L Carbon Dioxide 15 L (21-32) mEq/L Anion Gap 16.6 H (5-15) BUN 92 H (7-18) mg/dL Creatinine 2.0 H (0.55-1.02) mg/dL Est Cr Clr Drug Dosing 21.20 mL/min Estimated GFR (MDRD) 24 (>60) mL/min BUN/Creatinine Ratio 46.0 H (14-18) Glucose 144 H (83-115) mg/dL POC Glucose 149 H (83-110) mg/dL Calcium 8.0 L (8.5-10.1) mg/dL Phosphorus 4.1 (2.6-4.7) mg/dL Magnesium 2.2 (1.8-2.4) mg/dl Total Bilirubin 0.1 L (0.2-1.0) mg/dL AST 21 (15-37) U/L ALT 21 (14-59) U/L Alkaline Phosphatase 186 H (46-116) U/L Total Protein 4.4 L (6.4-8.2) g/dl Albumin 0.8 L (3.4-5.0) g/dl Globulin 3.6 gm/dL Albumin/Globulin Ratio 0.2 L (1-2) Med Orders - Current: Current Medications Diphenhydr/Magaldrate/Simeth/Lidoca (First-Mouthwash Blm Susp) 30 ml PO Q4H PRN PRN Reason: Dryness Last Admin: 06/28/20 10:23 Dose: 30 ml Documented by: Amino Ac/Electrol/Dextrose/Calcium (Clinimix E 01/21) 1,000 mls @ 60 mls/hr IV TITRATE [facility] Lorazepam (Ativan) 1 mg IVPUSH Q1H PRN PRN Reason: Anxiety Morphine Sulfate (Morphine) 2 mg IVPUSH Q1H PRN PRN Reason: Pain Last Admin: 06/30/20 14:24 Dose: 2 mg Documented by: Morphine Sulfate (Morphine 10 Mg/0.5 Ml Oral Syringe) 10 mg PO Q1H PRN PRN Reason: Pain Non-Formulary Medication (Nf Drug) 1 each .XX DAILY PRN PRN Reason: TAPER TPN DECREASE 20ML/HR Q2H Discontinued Medications Acetaminophen (Tylenol) 650 mg PO Q4H PRN PRN Reason: Pain (Mild 1-3)/fever Enoxaparin Sodium (Lovenox) 30 mg SUBCUT DAILY [facility] Last Admin: 06/30/20 09:05 Dose: 30 mg Documented by: Hydromorphone HCl (Dilaudid) 0.25 mg IVPUSH Q2H PRN PRN Reason: Pain (severe 7-10) Last Admin: 06/30/20 09:40 Dose: 0.25 mg Documented by: Hydromorphone HCl (Dilaudid) 1 mg IVPUSH Q1H PRN PRN Reason: Pain Sodium Chloride (Normal Saline) 1,000 mls @ 1,000 mls/hr IV ONETIME ONE Stop: 06/19/20 12:40 Last Admin: 06/19/20 13:10 Dose: 1,000 mls/hr Documented by: Dextrose/Sodium Chloride (Dextrose 5%-Normal Saline) 1,000 mls @ 100 mls/hr IV ASDIRECTED [facility] Last Admin: 06/22/20 06:42 Dose: 100 mls/hr Documented by: Dextrose/Sodium Chloride (Dextrose 5%-Normal Saline) Confirm Administered Dose 1,000 mls @ as directed .ROUTE .STK-MED ONE Stop: 06/22/20 05:52 Last Admin: 06/22/20 10:59 Dose: Not Given Documented by: Albumin Human (Flexbumin 25%) 12.5 gm in 50 mls @ 50 mls/hr IV ONETIME ONE Stop: 06/22/20 16:59 Last Admin: 06/22/20 16:28 Dose: 50 mls/hr Documented by: Sodium Chloride (Normal Saline) 1,000 mls @ 75 mls/hr IV ASDIRECTED [facility] Stop: 06/25/20 17:00 Last Admin: 06/25/20 06:17 Dose: 75 mls/hr Documented by: Tpn Placeholder 1,000 mls @ 40 mls/hr .XX ASDIRECTED [facility] Multivitamins/Minerals 10 ml/Chromium/Copper/Manganese/Zinc 1 ml/ Amino Ac/Electrol/Dextrose/Calcium 1,011 mls @ 40 mls/hr IV TITRATE [facility] Stop: 06/26/20 15:59 Last Infusion: 06/26/20 04:57 Dose: 80 mls/hr Documented by: Amino Ac/Electrol/Dextrose/Calcium (Clinimix E 01/21) 1,000 mls @ 80 mls/hr IV TITRATE [facility] Last Admin: 06/30/20 04:34 Dose: 80 mls/hr Documented by: Sodium Chloride (Normal Saline) 1,000 mls @ 20 mls/hr IV ASDIRECTED [facility] Last Admin: 06/28/20 19:23 Dose: 20 mls/hr Documented by: Magnesium Sulfate 4 gm/ Premix 50 mls @ 12.5 mls/hr IV ONETIME ONE Stop: 06/26/20 11:29 Last Admin: 06/26/20 08:41 Dose: 12.5 mls/hr Documented by: Fat Emulsion Intravenous (Intralipid 20%) 500 mls @ 62.5 mls/hr IV MoWeFr [facility] Last Admin: 06/29/20 15:36 Dose: 62.5 mls/hr Documented by: Multivitamins/Minerals 10 ml/Chromium/Copper/Manganese/Zinc 1 ml/ Amino Ac/Electrol/Dextrose/Calcium 1,011 mls @ 80 mls/hr IV TITRATE [facility] Stop: 06/27/20 22:39 Last Admin: 06/27/20 11:12 Dose: 80 mls/hr Documented by: Multivitamins/Minerals 10 ml/Chromium/Copper/Manganese/Zinc 1 ml/ Amino Ac/Electrol/Dextrose/Calcium 1,011 mls @ 80 mls/hr IV TITRATE [facility] Stop: 06/29/20 01:39 Last Admin: 06/28/20 13:12 Dose: 80 mls/hr Documented by: Multivitamins/Minerals 10 ml/Chromium/Copper/Manganese/Zinc 1 ml/ Amino Ac/Electrol/Dextrose/Calcium 1,011 mls @ 80 mls/hr IV TITRATE [facility] Stop: 06/30/20 03:39 Last Admin: 06/29/20 15:35 Dose: 80 mls/hr Documented by: Insulin Human Lispro (Humalog) 0 unit SUBCUT QIDACANDBED [facility]; Protocol Last Admin: 06/27/20 00:54 Dose: Not Given Documented by: Insulin Human Lispro (Humalog) 0 unit SUBCUT Q6HR [facility]; Protocol Last Admin: 06/30/20 06:10 Dose: Not Given Documented by: Levothyroxine Sodium (Levothyroxine) 25 mcg PO ACBREAKFAST [facility] Last Admin: 06/30/20 06:05 Dose: 25 mcg Documented by: Magnesium Hydroxide (Milk Of Magnesia) 30 ml PO Q12H PRN PRN Reason: Constipation Metoprolol Succinate (Toprol Xl) 100 mg PO DAILY [facility] Last Admin: 06/30/20 09:06 Dose: Not Given Documented by: Non-Formulary Medication (Promethazine Gel) 25 mg TOP Q6H PRN PRN Reason: Nausea Nystatin (Nystatin Oral Syringe) 500,000 unit PO QID [facility] Last Admin: 06/29/20 09:24 Dose: Not Given Documented by: Nystatin (Nystop) 0 gm TOP TID [facility] Last Admin: 06/30/20 09:04 Dose: 1 applic Documented by: Ondansetron HCl (Zofran) 4 mg IV Q4H PRN PRN Reason: Nausea/Vomiting Last Admin: 06/30/20 06:26 Dose: 4 mg Documented by: Ondansetron HCl (Zofran) 4 mg IVPUSH Q6H PRN PRN Reason: Nausea/Vomiting Oxycodone HCl (Oxycodone) 5 mg PO Q4H PRN PRN Reason: Pain (moderate 4-6) Pharmacy Consult (Consult To Pharmacy) 1 each .XX DAILY PRN PRN Reason: RX TO MANAGE ELECTROLYTE Polyethylene Glycol (Miralax) 17 gm PO DAILY PRN PRN Reason: Constipation Senna/Docusate Sodium (Senna Plus) 1 tab PO BID PRN PRN Reason: Constipation Temazepam (Restoril) 7.5 mg PO BEDTIME PRN PRN Reason: Sleep - Exam Quality Assessment: No: Supplemental Oxygen General: Oriented, Lethargic HEENT: Pupils Equal, Other (Ulceration of her oral mucosa, swollen lips gums and tongue with ulcers.) Neck: Supple Lungs: Normal Respiratory Effort, Crackles (Minimal basilar) Cardiovascular: Regular Rate, Regular Rhythm GI/Abdominal Exam: Normal Bowel Sounds, Soft, Non-Tender, No Distention Extremities: Pedal Edema (4+), Other (Edema of bilateral upper extremities left worse than right. Anasarca) Skin: Warm, Dry, Intact Psy/Mental Status: Depressed Sepsis Event Note - Evaluation Sepsis Screening Result: No Definite Risk - Focused Exam Vital Signs: Vital Signs Temp Pulse Resp BP Pulse Ox 06/30/20 08:52 97.5 F 109 H 16 122/59 L 97 06/30/20 04:40 98.4 F 111 H 18 114/59 L 98 - Problem List & Annotations (1) Generalized weakness SNOMED Code(s): 64931723 Code(s): R53.1 - WEAKNESS Status: Chronic Priority: Medium Current Visit: Yes (2) Hyponatremia SNOMED Code(s): 52044971 Code(s): E87.1 - HYPO-OSMOLALITY AND HYPONATREMIA Status: Acute Current Visit: Yes (3) Ovarian cancer SNOMED Code(s): 492381258 Code(s): C56.9 - MALIGNANT NEOPLASM OF UNSPECIFIED OVARY Status: Chronic Priority: Medium Current Visit: Yes Qualifiers: Laterality: unspecified laterality Qualified Code(s): C56.9 - Malignant neoplasm of unspecified ovary (4) Renal insufficiency SNOMED Code(s): 727422143, 545763231 Code(s): N28.9 - DISORDER OF KIDNEY AND URETER, UNSPECIFIED Status: Chronic Priority: High Current Visit: Yes Annotation/Comment:: Stage IV renal failure, EGFR 15 mL/min (5) Acute renal failure SNOMED Code(s): 65925890 Code(s): N17.9 - ACUTE KIDNEY FAILURE, UNSPECIFIED Status: Acute Current Visit: No Qualifiers: Acute renal failure type: unspecified Qualified Code(s): N17.9 - Acute kidney failure, unspecified - Problem List Review Problem List Initiated/Reviewed/Updated: Yes - My Orders Last 24 Hours: My Active Orders 06/30/20 11:57 Code Status [Resuscitation Status] Routine 06/30/20 12:19 Morphine 2 mg IVPUSH Q1H PRN Morphine [Morphine 10 MG/0.5 ML Oral Syringe] 10 mg PO Q1H PRN 06/30/20 12:20 LORazepam [Ativan] 1 mg IVPUSH Q1H PRN 06/30/20 12:23 Vital Signs [RC] DAILY - Plan Plan:: 79-year-old female with ovarian cancer presents to the emergency department after being seen at the clinic with increasing weakness following treatment with doxorubicin. Hypovolemic hyponatremia Acute on chronic renal insufficiency Elevated anion gap likely secondary to hypovolemia Hyponatremia secondary to protein calorie malnutrition Anemia Leukocytosis likely stress response Mouth ulcers, possible thrush Otalgia * Given 2 L normal saline, 1 in the clinic and 1 in the emergency department * Progressive weakness of the last 7 days * Unable to care for herself or have level of care for her * Repeat labs showed continued sodium of 129 and a creatinine down to 3.1, estimated GFR 15 * Albumin low at 1.7, corrected calcium 10.1. AST, ALT, alkaline phosphatase, bilirubin normal * WBC 10.55, hemoglobin 10.9 History of hypertension and hypothyroidism Plan * Admit to medical floor for rehydration * Follow renal function closely. * Order physical therapy and Occupational Therapy consults. * Continue home meds * Check TSH in the morning. * Monitor vital signs every 4 hours. * Dietary consult * Nystatin swish and spit 4 times daily * Analgesia for ear pain. Nothing significant found on exam. * VTE prophylaxis with Lovenox adjusted for renal function * Adjust medications based on renal function. * CODE STATUS: Full code * Disposition admit to floor with likely length of stay 2 to 3 days. * 06/20/2020 The patient is a 79-year-old lady who had been admitted predominantly for weakness. Physical therapy has been ordered. The patient will likely need to have therapeutic paracentesis as she does have ovarian cancer. The patient also has had recent chemotherapy and CBC, CMP have been ordered for her. She will continue diet as tolerated. Also I have ordered Magic mouthwash to help with her stomatitis. The patient does have pitting edema consistent with low albumin. This likely represents protein calorie malnutrition will require supplementation. Consult for dietitian has been ordered. 06/21/2020 The patient is a 79-year-old lady who has rather moderate ascites. She will need a paracentesis. Because of the patient's history of ovarian cancer is likely that the ascites is malignant. Paracentesis will be primarily for therapeutic reasons. The patient also has severe hypoalbuminemia which has been a contributing factor to her lower extremity edema. Patient says that she has not used any of the Magic mouthwash for her stomatitis. Dietary consultation has been ordered for the patient. PT OT will continue for the patient. The patient's Lovenox will be continued for VTE prophylaxis. She is currently in a full resuscitative CODE STATUS and this will be honored. She will likely be appropriate to discharge 1 to 2 days. 06/22/2020 The patient still has ascites. I have consulted Dr. Peralta, surgeon, to query about therapeutic paracentesis. The patient says that she is still having uncomfortable burning sensation in her mouth and has been unable to tolerate the Magic mouthwash for her stomatitis. I will keep this on the medication record. Dietary consultation has also been ordered for the patient PT OT will be continued for her. She is currently in a full resuscitative code and she should be likely appropriate for discharge tomorrow after paracentesis. Repeat lab oratory studies have been ordered for the morning. 06/23/20 The patient's primary complaint today is stomatitis. I have encouraged the patient to use the Magic mouthwash to help her. She still remains protein and calorie malnourished as related to her hypoalbuminemia. PT OT will continue for the patient. The patient will also have repeat laboratory studies. I did have a long discussion with the patient with regards to long-term health and had discussed DNR/DNI categories. The patient is still unsure and so will remain in full code category. The patient will need to continue with dietary supplements to help her protein. She also has been encouraged to continue with oral intake. The patient also had paracentesis yesterday without incident and had 6 L removed. I had also ordered 50 of albumin to help with her oncotic pressure. 06/24/20 The patient's primary concern today is that of stomatitis. Her mouth is red and inflamed and she has been recommended to use the Magic mouthwash to help with her stomatitis. My concern is that the patient is not maintaining enough oral intake to help with her hypoalbuminemia which is also causing her to have severe pedal edema. The patient has been encouraged to ambulate as necessary. She is to continue with the supplementations. I have recommended that the dietitian work closely with the patient. At this point due to the patient's overall weakness she would be considered appropriate for long-term care facility. 06/25/2020 The patient is still having difficulty with her stomatitis. She has not been using the Magic mouthwash. I recommended that the patient try to use this to help some of the pain. Also discussed feeding tube with the patient in order to receive some kind of nutritional/protein supplementation. The patient rejects the idea of a NG tube for feeding. She is asking about her Chemo-Port being used for TPN. The patient has been encouraged to ambulate. She will be kept on her current medications. The patient's white blood cell count has also dropped today and this will be monitored very closely for signs of neutropenic fever. Thus far the patient has been afebrile. The patient's albumin has also dropped to 1.1 g/dL. TPN will be ordered for the patient with protein will discuss and consult with a dietitian. 06/26/2020 The patient today is still having difficulty with her stomatitis. The patient has also been encouraged to use sponge sticks with Magic mouthwash to help with her stomatitis. I have ordered oral care to help with patient. Patient has been tolerating TPN. The patient has been encouraged to ambulate. Patient also has been recommended to continue sitting in chair more often. The patient's white blood cell count has declined to 2.19 thousand. Repeat laboratory studies have been ordered to continue to monitor this. Also the patient's magnesium is low and this will be replaced with 2 g of IV magnesium. Patient may require placement. 06/27/2020 The patient today says that her stomatitis is improved. She has been encouraged to continue with sponge sticks and Magic mouthwash. She has been tolerating TPN and this will help her protein. I have ordered repeat laboratory tests for the morning. She has been recommended to continue up with chair. The patient was also noted to be hypomagnesemic and this was replaced and her magnesium today is normal. We will recheck her magnesium. The patient's leukopenia will also be monitored closely. She has been encouraged to ambulate as she can. The patient will likely need placement and she should be appropriate in 3 to 5 days. The patient for now is still in the full code resuscitative status. 06/28/2020 The patient is a 79-year-old lady who appears to be in precipitous decline. The patient has become more edematous and this is secondary to the oncotic pressure from hypoalbuminemia. Dietary is monitoring the patient's nutrients through TPN. The patient should have extra protein added. She has been recommended to sit in chair. I had a long discussion with the patient with regards to her CODE STATUS and the patient is a still not ready to make the decision to be considered DNR/DNI. Placement has been recommended for the patient when she has improved somewhat. I suspect at this time the patient's overall status is poor due to her severe protein malnutrition and stage IV ovarian cancer. I have ordered repeat laboratory studies in morning to include albumin, prealbumin and ferritin. 06/29/2020 Patient continues to decline. I spoke with Monalisa Small NP who is her oncology provider. Monalisa spoke with Dr. Avery the oncology physician. Patient has failed chemotherapy and Dr. Avery recommends-of care. Renal function continues to be poor with creatinine of 1.8 and BUN of 84. She continues on TPN. Mouth continues to have severe ulceration and it is making it very difficult for her to take orally. I counseled her and her daughter in regards to her very poor prognosis and recommended she reevaluate her CODE STATUS. Patient will continue a full code overnight and we will reevaluate in the morning. She will get a CBC, CMP, magnesium, and phosphorus in the morning. 06/30/2020 Patient has requested comfort measures. Family is in agreement and would like to take her home when hospice is able to help care for her. Patient will be started on morphine for pain and Ativan for anxiety. Scopolamine patch will also be started for oral secretions. TPN will be weaned and discontinued. Blood sugars and any other labs will be discontinued. Patient will be kept comfortable and discharged home when possible.
[2020-06-30] MEDS ORDERED: Scopolamine 1.5 MG Transdermal Patch TRDERM SCH (16:00)
[2020-07-01] MEDS: Morphine 2 MG/ML SYRINGE IVPUSH PRN ×2 (02:49→11:56)
--- NOTE | 2020-07-01 12:54 | PCM.PN ---
- General Info Date of Service: 07/01/20 Admission Dx/Problem (Free Text): Generalized weakness, ascites, ovarian cancer Subjective Update: There has been no significant change overnight. Adrienne states she still feels miserable and plans are for her to discharge home tomorrow. - Review of Systems General: Reports: Fatigue HEENT: Reports: Sore Throat (Mouth pain) Pulmonary: Reports: No Symptoms Cardiovascular: Reports: No Symptoms Gastrointestinal: Reports: No Symptoms - Patient Data Vitals - Most Recent: Last Vital Signs Temp 97.2 F 07/01/20 09:44 Pulse 102 H 07/01/20 09:44 Resp 18 07/01/20 09:44 BP 125/53 L 07/01/20 09:44 Pulse Ox 97 07/01/20 09:44 Weight - Most Recent: 85.411 kg I&O - Last 24 Hours: Intake & Output 06/30/20 07/01/20 07/01/20 22:59 06:59 14:59 Intake Total 893 20 Output Total 0 Balance 893 20 Med Orders - Current: Current Medications Diphenhydr/Magaldrate/Simeth/Lidoca (First-Mouthwash Blm Susp) 30 ml PO Q4H PRN PRN Reason: Dryness Last Admin: 06/28/20 10:23 Dose: 30 ml Documented by: Lorazepam (Ativan) 1 mg IVPUSH Q1H PRN PRN Reason: Anxiety Miscellaneous Information (Remove Patch) 0 ea TRDERM Q72H [facility] Morphine Sulfate (Morphine) 2 mg IVPUSH Q1H PRN PRN Reason: Pain Last Admin: 07/01/20 11:56 Dose: 2 mg Documented by: Morphine Sulfate (Morphine 10 Mg/0.5 Ml Oral Syringe) 10 mg PO Q1H PRN PRN Reason: Pain Scopolamine (Transderm-Scop) 1.5 mg TRDERM Q72H [facility] Last Admin: 06/30/20 16:59 Dose: 1.5 mg Documented by: Discontinued Medications Acetaminophen (Tylenol) 650 mg PO Q4H PRN PRN Reason: Pain (Mild 1-3)/fever Enoxaparin Sodium (Lovenox) 30 mg SUBCUT DAILY [facility] Last Admin: 06/30/20 09:05 Dose: 30 mg Documented by: Hydromorphone HCl (Dilaudid) 0.25 mg IVPUSH Q2H PRN PRN Reason: Pain (severe 7-10) Last Admin: 06/30/20 09:40 Dose: 0.25 mg Documented by: Hydromorphone HCl (Dilaudid) 1 mg IVPUSH Q1H PRN PRN Reason: Pain Sodium Chloride (Normal Saline) 1,000 mls @ 1,000 mls/hr IV ONETIME ONE Stop: 06/19/20 12:40 Last Admin: 06/19/20 13:10 Dose: 1,000 mls/hr Documented by: Dextrose/Sodium Chloride (Dextrose 5%-Normal Saline) 1,000 mls @ 100 mls/hr IV ASDIRECTED [facility] Last Admin: 06/22/20 06:42 Dose: 100 mls/hr Documented by: Dextrose/Sodium Chloride (Dextrose 5%-Normal Saline) Confirm Administered Dose 1,000 mls @ as directed .ROUTE .STK-MED ONE Stop: 06/22/20 05:52 Last Admin: 06/22/20 10:59 Dose: Not Given Documented by: Albumin Human (Flexbumin 25%) 12.5 gm in 50 mls @ 50 mls/hr IV ONETIME ONE Stop: 06/22/20 16:59 Last Admin: 06/22/20 16:28 Dose: 50 mls/hr Documented by: Sodium Chloride (Normal Saline) 1,000 mls @ 75 mls/hr IV ASDIRECTED [facility] Stop: 06/25/20 17:00 Last Admin: 06/25/20 06:17 Dose: 75 mls/hr Documented by: Tpn Placeholder 1,000 mls @ 40 mls/hr .XX ASDIRECTED [facility] Multivitamins/Minerals 10 ml/Chromium/Copper/Manganese/Zinc 1 ml/ Amino Ac/Electrol/Dextrose/Calcium 1,011 mls @ 40 mls/hr IV TITRATE [facility] Stop: 06/26/20 15:59 Last Infusion: 06/26/20 04:57 Dose: 80 mls/hr Documented by: Amino Ac/Electrol/Dextrose/Calcium (Clinimix E 01/21) 1,000 mls @ 80 mls/hr IV TITRATE [facility] Last Admin: 06/30/20 04:34 Dose: 80 mls/hr Documented by: Sodium Chloride (Normal Saline) 1,000 mls @ 20 mls/hr IV ASDIRECTED [facility] Last Admin: 06/28/20 19:23 Dose: 20 mls/hr Documented by: Magnesium Sulfate 4 gm/ Premix 50 mls @ 12.5 mls/hr IV ONETIME ONE Stop: 06/26/20 11:29 Last Admin: 06/26/20 08:41 Dose: 12.5 mls/hr Documented by: Fat Emulsion Intravenous (Intralipid 20%) 500 mls @ 62.5 mls/hr IV MoWeFr [facility] Last Admin: 06/29/20 15:36 Dose: 62.5 mls/hr Documented by: Multivitamins/Minerals 10 ml/Chromium/Copper/Manganese/Zinc 1 ml/ Amino Ac/Electrol/Dextrose/Calcium 1,011 mls @ 80 mls/hr IV TITRATE [facility] Stop: 06/27/20 22:39 Last Admin: 06/27/20 11:12 Dose: 80 mls/hr Documented by: Multivitamins/Minerals 10 ml/Chromium/Copper/Manganese/Zinc 1 ml/ Amino Ac/Electrol/Dextrose/Calcium 1,011 mls @ 80 mls/hr IV TITRATE [facility] Stop: 06/29/20 01:39 Last Admin: 06/28/20 13:12 Dose: 80 mls/hr Documented by: Multivitamins/Minerals 10 ml/Chromium/Copper/Manganese/Zinc 1 ml/ Amino Ac/Electrol/Dextrose/Calcium 1,011 mls @ 80 mls/hr IV TITRATE [facility] Stop: 06/30/20 03:39 Last Admin: 06/29/20 15:35 Dose: 80 mls/hr Documented by: Amino Ac/Electrol/Dextrose/Calcium (Clinimix E 01/21) 1,000 mls @ 60 mls/hr IV TITRATE [facility] Insulin Human Lispro (Humalog) 0 unit SUBCUT QIDACANDBED [facility]; Protocol Last Admin: 06/27/20 00:54 Dose: Not Given Documented by: Insulin Human Lispro (Humalog) 0 unit SUBCUT Q6HR [facility]; Protocol Last Admin: 06/30/20 06:10 Dose: Not Given Documented by: Levothyroxine Sodium (Levothyroxine) 25 mcg PO ACBREAKFAST [facility] Last Admin: 06/30/20 06:05 Dose: 25 mcg Documented by: Magnesium Hydroxide (Milk Of Magnesia) 30 ml PO Q12H PRN PRN Reason: Constipation Metoprolol Succinate (Toprol Xl) 100 mg PO DAILY [facility] Last Admin: 06/30/20 09:06 Dose: Not Given Documented by: Non-Formulary Medication (Promethazine Gel) 25 mg TOP Q6H PRN PRN Reason: Nausea Non-Formulary Medication (Nf Drug) 1 each .XX DAILY PRN PRN Reason: TAPER TPN DECREASE 20ML/HR Q2H Nystatin (Nystatin Oral Syringe) 500,000 unit PO QID [facility] Last Admin: 06/29/20 09:24 Dose: Not Given Documented by: Nystatin (Nystop) 0 gm TOP TID [facility] Last Admin: 06/30/20 09:04 Dose: 1 applic Documented by: Ondansetron HCl (Zofran) 4 mg IV Q4H PRN PRN Reason: Nausea/Vomiting Last Admin: 06/30/20 06:26 Dose: 4 mg Documented by: Ondansetron HCl (Zofran) 4 mg IVPUSH Q6H PRN PRN Reason: Nausea/Vomiting Oxycodone HCl (Oxycodone) 5 mg PO Q4H PRN PRN Reason: Pain (moderate 4-6) Pharmacy Consult (Consult To Pharmacy) 1 each .XX DAILY PRN PRN Reason: RX TO MANAGE ELECTROLYTE Polyethylene Glycol (Miralax) 17 gm PO DAILY PRN PRN Reason: Constipation Senna/Docusate Sodium (Senna Plus) 1 tab PO BID PRN PRN Reason: Constipation Temazepam (Restoril) 7.5 mg PO BEDTIME PRN PRN Reason: Sleep - Exam Quality Assessment: No: Supplemental Oxygen General: Alert, Oriented HEENT: Pupils Equal, Other (Oral mucosa continues to have ulcerations, swollen) Neck: Supple Lungs: Clear to Auscultation, Normal Respiratory Effort Cardiovascular: Regular Rate, Regular Rhythm GI/Abdominal Exam: Normal Bowel Sounds, Soft, Non-Tender, No Distention Extremities: Normal Inspection, Normal Range of Motion, No Pedal Edema Skin: Warm, Dry, Intact Neurological: No New Focal Deficit Sepsis Event Note - Evaluation Sepsis Screening Result: No Definite Risk - Focused Exam Vital Signs: Vital Signs Temp Pulse Pulse Resp BP BP Pulse Ox 07/01/20 09:44 97.2 F 102 H 18 125/53 L 97 07/01/20 07:41 97 18 123/53 L 100 - Problem List & Annotations (1) Generalized weakness SNOMED Code(s): 19179716 Code(s): R53.1 - WEAKNESS Status: Chronic Priority: Medium Current Visit: Yes (2) Hyponatremia SNOMED Code(s): 86871791 Code(s): E87.1 - HYPO-OSMOLALITY AND HYPONATREMIA Status: Acute Current Visit: Yes (3) Ovarian cancer SNOMED Code(s): 969890060 Code(s): C56.9 - MALIGNANT NEOPLASM OF UNSPECIFIED OVARY Status: Chronic Priority: Medium Current Visit: Yes Qualifiers: Laterality: unspecified laterality Qualified Code(s): C56.9 - Malignant neoplasm of unspecified ovary (4) Renal insufficiency SNOMED Code(s): 422197569, 199425273 Code(s): N28.9 - DISORDER OF KIDNEY AND URETER, UNSPECIFIED Status: Chronic Priority: High Current Visit: Yes Annotation/Comment:: Stage IV renal failure, EGFR 15 mL/min (5) Acute renal failure SNOMED Code(s): 23067649 Code(s): N17.9 - ACUTE KIDNEY FAILURE, UNSPECIFIED Status: Acute Current Visit: No Qualifiers: Acute renal failure type: unspecified Qualified Code(s): N17.9 - Acute kidney failure, unspecified - Problem List Review Problem List Initiated/Reviewed/Updated: Yes - My Orders Last 24 Hours: My Active Orders 06/30/20 11:57 Code Status [Resuscitation Status] Routine 06/30/20 12:19 Morphine 2 mg IVPUSH Q1H PRN Morphine [Morphine 10 MG/0.5 ML Oral Syringe] 10 mg PO Q1H PRN 06/30/20 12:20 LORazepam [Ativan] 1 mg IVPUSH Q1H PRN 06/30/20 12:23 Vital Signs [RC] DAILY 06/30/20 16:00 Scopolamine [Transderm-Scop] 1.5 mg TRDERM Q72H 07/03/20 16:00 Remove Patch 0 ea TRDERM Q72H - Plan Plan:: 79-year-old female with ovarian cancer presents to the emergency department after being seen at the clinic with increasing weakness following treatment with doxorubicin. Hypovolemic hyponatremia Acute on chronic renal insufficiency Elevated anion gap likely secondary to hypovolemia Hyponatremia secondary to protein calorie malnutrition Anemia Leukocytosis likely stress response Mouth ulcers, possible thrush Otalgia * Given 2 L normal saline, 1 in the clinic and 1 in the emergency department * Progressive weakness of the last 7 days * Unable to care for herself or have level of care for her * Repeat labs showed continued sodium of 129 and a creatinine down to 3.1, estimated GFR 15 * Albumin low at 1.7, corrected calcium 10.1. AST, ALT, alkaline phosphatase, bilirubin normal * WBC 10.55, hemoglobin 10.9 History of hypertension and hypothyroidism Plan * Admit to medical floor for rehydration * Follow renal function closely. * Order physical therapy and Occupational Therapy consults. * Continue home meds * Check TSH in the morning. * Monitor vital signs every 4 hours. * Dietary consult * Nystatin swish and spit 4 times daily * Analgesia for ear pain. Nothing significant found on exam. * VTE prophylaxis with Lovenox adjusted for renal function * Adjust medications based on renal function. * CODE STATUS: Full code * Disposition admit to floor with likely length of stay 2 to 3 days. * 06/20/2020 The patient is a 79-year-old lady who had been admitted predominantly for weakness. Physical therapy has been ordered. The patient will likely need to h ave therapeutic paracentesis as she does have ovarian cancer. The patient also has had recent chemotherapy and CBC, CMP have been ordered for her. She will continue diet as tolerated. Also I have ordered Magic mouthwash to help with her stomatitis. The patient does have pitting edema consistent with low albumin. This likely represents protein calorie malnutrition will require supplementation. Consult for dietitian has been ordered. 06/21/2020 The patient is a 79-year-old lady who has rather moderate ascites. She will need a paracentesis. Because of the patient's history of ovarian cancer is likely that the ascites is malignant. Paracentesis will be primarily for therapeutic reasons. The patient also has severe hypoalbuminemia which has been a contributing factor to her lower extremity edema. Patient says that she has not used any of the Magic mouthwash for her stomatitis. Dietary consultation has been ordered for the patient. PT OT will continue for the patient. The patient's Lovenox will be continued for VTE prophylaxis. She is currently in a full resuscitative CODE STATUS and this will be honored. She will likely be appropriate to discharge 1 to 2 days. 06/22/2020 The patient still has ascites. I have consulted Dr. Peralta, surgeon, to query about therapeutic paracentesis. The patient says that she is still having uncomfortable burning sensation in her mouth and has been unable to tolerate the Magic mouthwash for her stomatitis. I will keep this on the medication record. Dietary consultation has also been ordered for the patient PT OT will be continued for her. She is currently in a full resuscitative code and she should be likely appropriate for discharge tomorrow after paracentesis. Repeat laboratory studies have been ordered for the morning. 06/23/20 The patient's primary complaint today is stomatitis. I have encouraged the patient to use the Magic mouthwash to help her. She still remains protein and calorie malnourished as related to her hypoalbuminemia. PT OT will continue for the patient. The patient will also have repeat laboratory studies. I did have a long discussion with the patient with regards to long-term health and had discussed DNR/DNI categories. The patient is still unsure and so will remain in full code category. The patient will need to continue with dietary supplements to help her protein. She also has been encouraged to continue with oral intake. The patient also had paracentesis yesterday without incident and had 6 L re moved. I had also ordered 50 of albumin to help with her oncotic pressure. 06/24/20 The patient's primary concern today is that of stomatitis. Her mouth is red and inflamed and she has been recommended to use the Magic mouthwash to help with her stomatitis. My concern is that the patient is not maintaining enough oral intake to help with her hypoalbuminemia which is also causing her to have severe pedal edema. The patient has been encouraged to ambulate as necessary. She is to continue with the supplementations. I have recommended that the dietitian work closely with the patient. At this point due to the patient's overall weakness she would be considered appropriate for long-term care facility. 06/25/2020 The patient is still having difficulty with her stomatitis. She has not been using the Magic mouthwash. I recommended that the patient try to use this to help some of the pain. Also discussed feeding tube with the patient in order to receive some kind of nutritional/protein supplementation. The patient rejects the idea of a NG tube for feeding. She is asking about her Chemo-Port being used for TPN. The patient has been encouraged to ambulate. She will be kept on her current medications. The patient's white blood cell count has also dropped today and this will be monitored very closely for signs of neutropenic fever. Thus far the patient has been afebrile. The patient's albumin has also dropped to 1.1 g/dL. TPN will be ordered for the patient with protein will discuss and consult with a dietitian. 06/26/2020 The patient today is still having difficulty with her stomatitis. The patient has also been encouraged to use sponge sticks with Magic mouthwash to help with her stomatitis. I have ordered oral care to help with patient. Patient has been tolerating TPN. The patient has been encouraged to ambulate. Patient also has been recommended to continue sitting in chair more often. The patient's white blood cell count has declined to 2.19 thousand. Repeat laboratory studies have been ordered to continue to monitor this. Also the patient's magnesium is low and this will be replaced with 2 g of IV magnesium. Patient may require placement. 06/27/2020 The patient today says that her stomatitis is improved. She has been encouraged to continue with sponge sticks and Magic mouthwash. She has been tolerating TPN and this will help her protein. I have ordered repeat laboratory tests for the morning. She has been recommended to continue up with chair. The patient was also noted to be hypomagnesemic and this was replaced and her magnesium today is normal. We will recheck her magnesium. The patient's leukopenia will also be monitored closely. She has been encouraged to ambulate as she can. The patient will likely need placement and she should be appropriate in 3 to 5 days. The patient for now is still in the full code resuscitative status. 06/28/2020 The patient is a 79-year-old lady who appears to be in precipitous decline. The patient has become more edematous and this is secondary to the oncotic pressure from hypoalbuminemia. Dietary is monitoring the patient's nutrients through TPN. The patient should have extra protein added. She has been recommended to sit in chair. I had a long discussion with the patient with regards to her CODE STATUS and the patient is a still not ready to make the decision to be considered DNR/DNI. Placement has been recommended for the patient when she has improved somewhat. I suspect at this time the patient's overall status is poor due to her severe protein malnutrition and stage IV ovarian cancer. I have ordered repeat laboratory studies in morning to include albumin, prealbumin and ferritin. 06/29/2020 Patient continues to decline. I spoke with Monalisa Small NP who is her oncology provider. Monalisa spoke with Dr. Avery the oncology physician. Patient has failed chemotherapy and Dr. Avery recommends-of care. Renal function continues to be poor with creatinine of 1.8 and BUN of 84. She continues on TPN. Mouth continues to have severe ulceration and it is making it very difficult for her to take orally. I counseled her and her daughter in regards to her very poor prognosis and recommended she reevaluate her CODE STATUS. Patient will continue a full code overnight and we will reevaluate in the morning. She will get a CBC, CMP, magnesium, and phosphorus in the morning. 06/30/2020 Patient has requested comfort measures. Family is in agreement and would like to take her home when hospice is able to help care for her. Patient will be started on morphine for pain and Ativan for anxiety. Scopolamine patch will also be started for oral secretions. TPN will be weaned and discontinued. Blood sugars and any other labs will be discontinued. Patient will be kept com fortable and discharged home when possible. 07/01/2020 Continue on comfort measures. Patient will discharge to home on hospice care tomorrow.
[2020-07-01] MEDS: Morphine 10 MG/0.5 ML Oral Syringe PO PRN ×2 (17:30→19:52)
[2020-07-02] MEDS: Morphine 10 MG/0.5 ML Oral Syringe PO PRN ×3 (01:26→12:51)
[2020-07-02 11:44] VITALS: BP 127/55; PULSE 96
--- NOTE | 2020-07-02 12:23 | PCM.DCSUM1 ---
Discharge Summary - Hospital Course HPI Initial Comments: 79-year-old female with history of ovarian cancer, last chemotherapy on June 11, 2020. Her next chemotherapy is scheduled in 3 weeks and next week she has a paracentesis is scheduled for recurrent ascites. Chemotherapy includes doxorubicin and she apparently gets very weak after the infusions. Patient has been increasingly weak and she presented to the oncology clinic today and after receiving a liter of fluid and Zofran she still did not fill any better. She is unable to get around at home. Labs done at the clinic showed sodium of 129 and a creatinine of 3.9. When repeated here sodium was still 129, but creatinine came down to 3.1 with estimated GFR of 15 and BUN of 75. Her normal creatinine is in the upper twos according to the ED provider. Patient complains of a poor appetite but no significant abdominal pain. She did complain of some lower abdominal fullness especially when her fluid increases in her abdomen. She denies any fever or chills. She denies any shortness of breath or chest pain. No dysuria or hematuria. No vomiting. She does complain of some mouth discomfort that has been going on for a few weeks. She does have a mouthwash uses at home. She also complains of occasional ear pain that causes dizziness. Diagnosis: Stroke: No - Discharge Data Discharge Date: 07/02/20 Discharge Disposition: DC/Tfer to Hospice - Home 50 Condition: Serious - Referral to Home Health Primary Care Physician: Cristian Nazario MD - Discharge Diagnosis/Problem(s) (1) Generalized weakness SNOMED Code(s): 70084177 ICD Code: R53.1 - WEAKNESS Status: Chronic Priority: Medium (2) Hyponatremia SNOMED Code(s): 59396995 ICD Code: E87.1 - HYPO-OSMOLALITY AND HYPONATREMIA Status: Acute (3) Ovarian cancer SNOMED Code(s): 945977801 ICD Code: C56.9 - MALIGNANT NEOPLASM OF UNSPECIFIED OVARY Status: Chronic Priority: Medium Qualifiers: Laterality: unspecified laterality Qualified Code(s): C56.9 - Malignant neoplasm of unspecified ovary (4) Renal insufficiency SNOMED Code(s): 935251433, 766859505 ICD Code: N28.9 - DISORDER OF KIDNEY AND URETER, UNSPECIFIED Status: Chronic Priority: High Problem Details: Stage IV renal failure, EGFR 15 mL/min (5) Acute renal failure SNOMED Code(s): 04352401 ICD Code: N17.9 - ACUTE KIDNEY FAILURE, UNSPECIFIED Status: Acute Qualifiers: Acute renal failure type: unspecified Qualified Code(s): N17.9 - Acute kidney failure, unspecified - Patient Summary/Data Consults: Consultations 06/19/20 17:05 Consult to Expediter Service Order [CONS] Routine 06/22/20 09:26 Consult to Physician [CONS] Routine Hospital Course: 79-year-old female with ovarian cancer presents to the emergency department after being seen at the clinic with increasing weakness following treatment with doxorubicin. Hypovolemic hyponatremia Acute on chronic renal insufficiency Elevated anion gap likely secondary to hypovolemia Hyponatremia secondary to protein calorie malnutrition Anemia Leukocytosis likely stress response Mouth ulcers, possible thrush Otalgia * Given 2 L normal saline, 1 in the clinic and 1 in the emergency department * Progressive weakness of the last 7 days * Unable to care for herself or have level of care for her * Repeat labs showed continued sodium of 129 and a creatinine down to 3.1, estimated GFR 15 * Albumin low at 1.7, corrected calcium 10.1. AST, ALT, alkaline phosphatase, bilirubin normal * WBC 10.55, hemoglobin 10.9 History of hypertension and hypothyroidism Plan * Admit to medical floor for rehydration * Follow renal function closely. * Order physical therapy and Occupational Therapy consults. * Continue home meds * Check TSH in the morning. * Monitor vital signs every 4 hours. * Dietary consult * Nystatin swish and spit 4 times daily * Analgesia for ear pain. Nothing significant found on exam. * VTE prophylaxis with Lovenox adjusted for renal function * Adjust medications based on renal function. * CODE STATUS: Full code * Disposition admit to floor with likely length of stay 2 to 3 days. * 06/20/2020 The patient is a 79-year-old lady who had been admitted predominantly for weakness. Physical therapy has been ordered. The patient will likely need to have therapeutic paracentesis as she does have ovarian cancer. The patient also has had recent chemotherapy and CBC, CMP have been ordered for her. She will continue diet as tolerated. Also I have ordered Magic mouthwash to help with her stomatitis. The patient does have pitting edema consistent with low albumin. This likely represents protein calorie malnutrition will require supplementation. Consult for dietitian has been ordered. 06/21/2020 The patient is a 79-year-old lady who has rather moderate ascites. She will need a paracentesis. Because of the patient's history of ovarian cancer is likely that the ascites is malignant. Paracentesis will be primarily for therapeutic reasons. The patient also has severe hypoalbuminemia which has been a contributing factor to her lower extremity edema. Patient says that she has not used any of the Magic mouthwash for her stomatitis. Dietary consultation h as been ordered for the patient. PT OT will continue for the patient. The patient's Lovenox will be continued for VTE prophylaxis. She is currently in a full resuscitative CODE STATUS and this will be honored. She will likely be appropriate to discharge 1 to 2 days. 06/22/2020 The patient still has ascites. I have consulted Dr. Peralta, surgeon, to query about therapeutic paracentesis. The patient says that she is still having uncomfortable burning sensation in her mouth and has been unable to tolerate the Magic mouthwash for her stomatitis. I will keep this on the medication record. Dietary consultation has also been ordered for the patient PT OT will be continued for her. She is currently in a full resuscitative code and she should be likely appropriate for discharge tomorrow after paracentesis. Repeat laboratory studies have been ordered for the morning. 06/23/20 The patient's primary complaint today is stomatitis. I have encouraged the patient to use the Magic mouthwash to help her. She still remains protein and calorie malnourished as related to her hypoalbuminemia. PT OT will continue for the patient. The patient will also have repeat laboratory studies. I did have a long discussion with the patient with regards to long-term health and had discussed DNR/DNI categories. The patient is still unsure and so will remain in full code category. The patient will need to continue with dietary supplements to help her protein. She also has been encouraged to continue with oral intake. The patient also had paracentesis yesterday without incident and had 6 L removed. I had also ordered 50 of albumin to help with her oncotic pressure. 06/24/20 The patient's primary concern today is that of stomatitis. Her mouth is red and inflamed and she has been recommended to use the Magic mouthwash to help with her stomatitis. My concern is that the patient is not maintaining enough oral intake to help with her hypoalbuminemia which is also causing her to have severe pedal edema. The patient has been encouraged to ambulate as necessary. She is to continue with the supplementations. I have recommended that the dietitian work closely with the patient. At this point due to the patient's overall weakness she would be considered appropriate for long-term care facility. 06/25/2020 The patient is still having difficulty with her stomatitis. She has not been using the Magic mouthwash. I recommended that the patient try to use this to help some of the pain. Also discussed feeding tube with the patient in order to receive some kind of nutritional/protein supplementation. The patient rejects the idea of a NG tube for feeding. She is asking about her Chemo-Port being used for TPN. The patient has been encouraged to ambulate. She will be kept on her current medications. The patient's white blood cell count has also dropped today and this will be monitored very closely for signs of neutropenic fever. Thus far the patient has been afebrile. The patient's albumin has also dropped to 1.1 g/dL. TPN will be ordered for the patient with protein will discuss and consult with a dietitian. 06/26/2020 The patient today is still having difficulty with her stomatitis. The patient has also been encouraged to use sponge sticks with Magic mouthwash to help with her stomatitis. I have ordered oral care to help with patient. Patient has been tolerating TPN. The patient has been encouraged to ambulate. Patient also has been recommended to continue sitting in chair more often. The patient's white blood cell count has declined to 2.19 thousand. Repeat laboratory studies have been ordered to continue to monitor this. Also the patient's magnesium is low and this will be replaced with 2 g of IV magnesium. Patient may require placement. 06/27/2020 The patient today says that her stomatitis is improved. She has been encouraged to continue with sponge sticks and Magic mouthwash. She has been tolerating TPN and this will help her protein. I have ordered repeat laboratory tests for the morning. She has been recommended to continue up with chair. The patient was also noted to be hypomagnesemic and this was replaced and her magnesium today is normal. We will recheck her magnesium. The patient's leukopenia will also be monitored closely. She has been encouraged to ambulate as she can. The patient will likely need placement and she should be appropriate in 3 to 5 day s. The patient for now is still in the full code resuscitative status. 06/28/2020 The patient is a 79-year-old lady who appears to be in precipitous decline. The patient has become more edematous and this is secondary to the oncotic pressure from hypoalbuminemia. Dietary is monitoring the patient's nutrients through TPN. The patient should have extra protein added. She has been recommended to sit in chair. I had a long discussion with the patient with regards to her CODE STATUS and the patient is a still not ready to make the decision to be considered DNR/DNI. Placement has been recommended for the patient when she has improved somewhat. I suspect at this time the patient's overall status is poor due to her severe protein malnutrition and stage IV ovarian cancer. I have ordered repeat laboratory studies in morning to include albumin, prealbumin and ferritin. 06/29/2020 Patient continues to decline. I spoke with Monalisa Small NP who is her oncology provider. Monalisa spoke with Dr. Avery the oncology physician. Patient has failed chemotherapy and Dr. Avery recommends-of care. Renal function continues to be poor with creatinine of 1.8 and BUN of 84. She continues on TPN. Mouth continues to have severe ulceration and it is making it very difficult for her to take orally. I counseled her and her daughter in regards to her very poor prognosis and recommended she reevaluate her CODE STATUS. Patient will continue a full code overnight and we will reevaluate in the morning. She will get a CBC, CMP, magnesium, and phosphorus in the morning. 06/30/2020 Patient has requested comfort measures. Family is in agreement and would like to take her home when hospice is able to help care for her. Patient will be started on morphine for pain and Ativan for anxiety. Scopolamine patch will also be started for oral secretions. TPN will be weaned and discontinued. Blood sugars and any other labs will be discontinued. Patient will be kept comfortable and discharged home when possible. 07/01/2020 Continue on comfort measures. Patient will discharge to home on hospice care tomorrow. 07/02/2020 Patient is discharged today on hospice care. - Patient Instructions Diet: Regular Diet as Tolerated Activity: Bedrest, May Use Bathroom Driving: Do Not Drive Other/Special Instructions: You are going home with hospice care. Please arrange further medications and treatments through them. - Discharge Plan *PRESCRIPTION DRUG MONITORING PROGRAM REVIEWED*: No *COPY OF PRESCRIPTION DRUG MONITORING REPORT IN PATIENT MELIDA: No Prescriptions/Med Rec: LORazepam [LORazepam Intensol] 2 mg PO Q1H #10 ml Morphine [Morphine 10 MG/0.5 ML Oral Syringe] 10 mg PO Q1H PRN #5 syringe PRN Reason: Pain Scopolamine [Transderm-Scop] 1.5 mg TRDERM Q72H #2 patch Home Medications: Home Meds LORazepam [LORazepam Intensol] 2 mg PO Q1H #10 ml 07/02/20 [Rx] Morphine [Morphine 10 MG/0.5 ML Oral Syringe] 10 mg PO Q1H PRN #5 syringe 07/02/20 [Rx] Scopolamine [Transderm-Scop] 1.5 mg TRDERM Q72H #2 patch 07/02/20 [Rx] Patient Handouts: and Dying, Preventing Pressure Injuries, Hospice Referrals: Cristian Nazario MD [Primary Care Provider] - (Follow-up as needed with ) - Discharge Summary/Plan Comment DC Time >30 min.: Yes - General Info Date of Service: 07/02/20 Admission Dx/Problem (Free Text: Generalized weakness, ascites, ovarian cancer Subjective Update: Patient is more alert today. She continues to have mouth discomfort, but she was sitting up in bed. Functional Status: Reports: Pain Controlled - Review of Systems General: Reports: Fatigue HEENT: Reports: Other (Mouth pain) Pulmonary: Reports: No Symptoms Cardiovascular: Reports: No Symptoms Gastrointestinal: Reports: No Symptoms - Patient Data Vitals - Most Recent: Last Vital Signs Temp 97.2 F 07/02/20 09:39 Pulse 96 07/02/20 09:39 Resp 15 07/02/20 09:39 BP 127/55 L 07/02/20 09:39 Pulse Ox 100 07/02/20 09:39 Weight - Most Recent: 85.411 kg I&O - Last 24 hours: Intake & Output 07/01/20 07/02/20 07/02/20 22:59 06:59 14:59 Intake Total 200 50 Output Total 50 Balance 200 0 Med Orders - Current: Current Medications Diphenhydr/Magaldrate/Simeth/Lidoca (First-Mouthwash Blm Susp) 30 ml PO Q4H PRN PRN Reason: Dryness Last Admin: 06/28/20 10:23 Dose: 30 ml Documented by: Heparin Sodium (Porcine) (Heparin Lock Flush 100 Units/Ml) 500 units FLUSH ASDIRECTED PRN PRN Reason: port a cath Lorazepam (Ativan) 1 mg IVPUSH Q1H PRN PRN Reason: Anxiety Miscellaneous Information (Remove Patch) 0 ea TRDERM Q72H [facility] Morphine Sulfate (Morphine) 2 mg IVPUSH Q1H PRN PRN Reason: Pain Last Admin: 07/01/20 11:56 Dose: 2 mg Documented by: Morphine Sulfate (Morphine 10 Mg/0.5 Ml Oral Syringe) 10 mg PO Q1H PRN PRN Reason: Pain Last Admin: 07/02/20 08:59 Dose: 10 mg Documented by: Scopolamine (Transderm-Scop) 1.5 mg TRDERM Q72H [facility] Last Admin: 06/30/20 16:59 Dose: 1.5 mg Documented by: Discontinued Medications Acetaminophen (Tylenol) 650 mg PO Q4H PRN PRN Reason: Pain (Mild 1-3)/fever Enoxaparin Sodium (Lovenox) 30 mg SUBCUT DAILY [facility] Last Admin: 06/30/20 09:05 Dose: 30 mg Documented by: Hydromorphone HCl (Dilaudid) 0.25 mg IVPUSH Q2H PRN PRN Reason: Pain (severe 7-10) Last Admin: 06/30/20 09:40 Dose: 0.25 mg Documented by: Hydromorphone HCl (Dilaudid) 1 mg IVPUSH Q1H PRN PRN Reason: Pain Sodium Chloride (Normal Saline) 1,000 mls @ 1,000 mls/hr IV ONETIME ONE Stop: 06/19/20 12:40 Last Admin: 06/19/20 13:10 Dose: 1,000 mls/hr Documented by: Dextrose/Sodium Chloride (Dextrose 5%-Normal Saline) 1,000 mls @ 100 mls/hr IV ASDIRECTED [facility] Last Admin: 06/22/20 06:42 Dose: 100 mls/hr Documented by: Dextrose/Sodium Chloride (Dextrose 5%-Normal Saline) Confirm Administered Dose 1,000 mls @ as directed .ROUTE .STK-MED ONE Stop: 06/22/20 05:52 Last Admin: 06/22/20 10:59 Dose: Not Given Documented by: Albumin Human (Flexbumin 25%) 12.5 gm in 50 mls @ 50 mls/hr IV ONETIME ONE Stop: 06/22/20 16:59 Last Admin: 06/22/20 16:28 Dose: 50 mls/hr Documented by: Sodium Chloride (Normal Saline) 1,000 mls @ 75 mls/hr IV ASDIRECTED [facility] Stop: 06/25/20 17:00 Last Admin: 06/25/20 06:17 Dose: 75 mls/hr Documented by: Tpn Placeholder 1,000 mls @ 40 mls/hr .XX ASDIRECTED [facility] Multivitamins/Minerals 10 ml/Chromium/Copper/Manganese/Zinc 1 ml/ Amino Ac/Electrol/Dextrose/Calcium 1,011 mls @ 40 mls/hr IV TITRATE [facility] Stop: 06/26/20 15:59 Last Infusion: 06/26/20 04:57 Dose: 80 mls/hr Documented by: Amino Ac/Electrol/Dextrose/Calcium (Clinimix E 01/21) 1,000 mls @ 80 mls/hr IV TITRATE [facility] Last Admin: 06/30/20 04:34 Dose: 80 mls/hr Documented by: Sodium Chloride (Normal Saline) 1,000 mls @ 20 mls/hr IV ASDIRECTED [facility] Last Admin: 06/28/20 19:23 Dose: 20 mls/hr Documented by: Magnesium Sulfate 4 gm/ Premix 50 mls @ 12.5 mls/hr IV ONETIME ONE Stop: 06/26/20 11:29 Last Admin: 06/26/20 08:41 Dose: 12.5 mls/hr Documented by: Fat Emulsion Intravenous (Intralipid 20%) 500 mls @ 62.5 mls/hr IV MoWeFr [facility] Last Admin: 06/29/20 15:36 Dose: 62.5 mls/hr Documented by: Multivitamins/Minerals 10 ml/Chromium/Copper/Manganese/Zinc 1 ml/ Amino Ac/Electrol/Dextrose/Calcium 1,011 mls @ 80 mls/hr IV TITRATE [facility] Stop: 06/27/20 22:39 Last Admin: 06/27/20 11:12 Dose: 80 mls/hr Documented by: Multivitamins/Minerals 10 ml/Chromium/Copper/Manganese/Zinc 1 ml/ Amino Ac/Electrol/Dextrose/Calcium 1,011 mls @ 80 mls/hr IV TITRATE [facility] Stop: 06/29/20 01:39 Last Admin: 06/28/20 13:12 Dose: 80 mls/hr Documented by: Multivitamins/Minerals 10 ml/Chromium/Copper/Manganese/Zinc 1 ml/ Amino Ac/Electrol/Dextrose/Calcium 1,011 mls @ 80 mls/hr IV TITRATE [facility] Stop: 06/30/20 03:39 Last Admin: 06/29/20 15:35 Dose: 80 mls/hr Documented by: Amino Ac/Electrol/Dextrose/Calcium (Clinimix E 01/21) 1,000 mls @ 60 mls/hr IV TITRATE [facility] Insulin Human Lispro (Humalog) 0 unit SUBCUT QIDACANDBED [facility]; Protocol Last Admin: 06/27/20 00:54 Dose: Not Given Documented by: Insulin Human Lispro (Humalog) 0 unit SUBCUT Q6HR [facility]; Protocol Last Admin: 06/30/20 06:10 Dose: Not Given Documented by: Levothyroxine Sodium (Levothyroxine) 25 mcg PO ACBREAKFAST [facility] Last Admin: 06/30/20 06:05 Dose: 25 mcg Documented by: Magnesium Hydroxide (Milk Of Magnesia) 30 ml PO Q12H PRN PRN Reason: Constipation Metoprolol Succinate (Toprol Xl) 100 mg PO DAILY [facility] Last Admin: 06/30/20 09:06 Dose: Not Given Documented by: Non-Formulary Medication (Promethazine Gel) 25 mg TOP Q6H PRN PRN Reason: Nausea Non-Formulary Medication (Nf Drug) 1 each .XX DAILY PRN PRN Reason: TAPER TPN DECREASE 20ML/HR Q2H Nystatin (Nystatin Oral Syringe) 500,000 unit PO QID [facility] Last Admin: 06/29/20 09:24 Dose: Not Given Documented by: Nystatin (Nystop) 0 gm TOP TID [facility] Last Admin: 06/30/20 09:04 Dose: 1 applic Documented by: Ondansetron HCl (Zofran) 4 mg IV Q4H PRN PRN Reason: Nausea/Vomiting Last Admin: 06/30/20 06:26 Dose: 4 mg Documented by: Ondansetron HCl (Zofran) 4 mg IVPUSH Q6H PRN PRN Reason: Nausea/Vomiting Oxycodone HCl (Oxycodone) 5 mg PO Q4H PRN PRN Reason: Pain (moderate 4-6) Pharmacy Consult (Consult To Pharmacy) 1 each .XX DAILY PRN PRN Reason: RX TO MANAGE ELECTROLYTE Polyethylene Glycol (Miralax) 17 gm PO DAILY PRN PRN Reason: Constipation Senna/Docusate Sodium (Senna Plus) 1 tab PO BID PRN PRN Reason: Constipation Temazepam (Restoril) 7.5 mg PO BEDTIME PRN PRN Reason: Sleep - Exam Quality Assessment: Denies: Supplemental Oxygen General: Reports: Alert, Oriented HEENT: Reports: Pupils Equal, Other (Swollen oral mucosa) Neck: Reports: Supple Lungs: Reports: Clear to Auscultation, Normal Respiratory Effort Cardiovascular: Reports: Regular Rate, Regular Rhythm GI/Abdominal Exam: Distended, Tender (Mild)
== END 2020-07-02 13:20 | disposition hospice, home (50) | DRG 157 ==
LOC: SUPCPDRO 10:20 → JD.ED 10:20 → JD.MS 16:37
PROVIDERS: ADMIT Family Medicine; ATTEND Family Medicine
PROC: 0W9G3ZZ Drainage of Peritoneal Cavity, Percutaneous Approach (ICD-10-PCS; 2020-06-22)
PROC: 3E0336Z Introduction of Nutritional Substance into Peripheral Vein, Percutaneous Approach (ICD-10-PCS; principal; 2020-06-23)
DX: R42 Dizziness and giddiness (principal); K12.1 Other forms of stomatitis; R53.1 Weakness; N28.9 Disorder of kidney and ureter, unspecified; E43 Unspecified severe protein-calorie malnutrition; H54.7 Unspecified visual loss; I10 Essential (primary) hypertension; Z87.01 Personal history of pneumonia (recurrent); Z87.440 Personal history of urinary (tract) infections; N17.9 Acute kidney failure, unspecified; E87.1 Hypo-osmolality and hyponatremia; D84.9 Immunodeficiency, unspecified; Z88.1 Allergy status to other antibiotic agents; Z88.2 Allergy status to sulfonamides; Z88.8 Allergy status to other drugs, medicaments and biological substances; Z91.041 Radiographic dye allergy status; Z79.890 Hormone replacement therapy; Z79.899 Other long term (current) drug therapy; C56.9 Malignant neoplasm of unspecified ovary; R18.0 Malignant ascites; N18.4 Chronic kidney disease, stage 4 (severe); D64.9 Anemia, unspecified; H92.09 Otalgia, unspecified ear; E86.1 Hypovolemia; E03.9 Hypothyroidism, unspecified; Z92.21 Personal history of antineoplastic chemotherapy; E83.42 Hypomagnesemia; Z51.5 Encounter for palliative care; I12.9 Hypertensive chronic kidney disease with stage 1 through stage 4 chronic kidney disease, or unspecified chronic kidney disease; Z20.828 Contact with and (suspected) exposure to other viral communicable diseases
CPT/HCPCS: 36415; 80053; 83735; 85025; 99285; J7030; U0002; 51701; 51798; 80048; 82962; 84100; 84443; 85379; 86140; 97110-GP; 97162-GP; 97530-GP; 99284; A9270-GY; J1170; J1642; J1650; J1815-GY; J2270; J2405; J3475; J7042; P9047